=== PATIENT | male | born 1950 | race Caucasian/White ===

== ENCOUNTER 2020-04-11 10:11 | Outpatient (CLI) | payer MEDICARE, SELFPAY ==
--- NOTE | ~2020-04-11 | US_ITS ---
EXAMINATION: US renal BI DATE: 04/11/2020 11:11 INDICATION: Chronic kidney disease stage III TECHNIQUE: Multiple ultrasound grayscale images of the kidneys were obtained. COMPARISON: None. FINDINGS: The right kidney measures 11.5 x 6.0 x 6.6 cm. The left kidney measures 12.8 x 6.2 x 5.2 cm. The kidn eys demonstrate normal parenchymal echogenicity. There are cysts in the kidneys measuring up to 2.6 c m on the left. There is no hydronephrosis. The bladder is normal. IMPRESSION: 1. Normal kidney sizes. No hydronephrosis. Reviewed, dictated and finalized at location A. 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
== END 2020-04-11 10:12 | disposition home or self-care (01) ==
PROVIDERS: PCP Family Medicine; Visit Provider Internal Medicine Nephrology
DX: N18.31 Chronic kidney disease, stage 3a (principal)
CPT/HCPCS: 76775

== ENCOUNTER → 2020-06-18 01:16 | Outpatient (CLI) | payer MEDICARE, SELFPAY ==
[2020-06-18 18:55] LABS: SARS-CoV-2 RNA PCR Negative
== END ==
PROVIDERS: PCP Family Medicine; Visit Provider Internal Medicine Gastroenterology
DX: Z01.812 Encounter for preprocedural laboratory examination (principal); Z20.822 Contact with and (suspected) exposure to COVID-19
CPT/HCPCS: C9803; U0003; U0005

== ENCOUNTER 2020-06-21 05:36 | Day surgery (SDC) | payer MEDICARE, SELFPAY ==
[2020-06-17 13:30] VITALS: BMI 39.0
[2020-06-21 09:39] LABS: Glucose Point of Care 160 (65-105)
--- NOTE | 2020-06-21 09:48 | ECG_ITS ---
Measurements Intervals [place] Rate: 48 P: 54 TN: 273 QRS: -11 QRSD: 118 T: 133 QT: 549 QTc: 495 Interpretive Statements SINUS RHYTHM WITH SECOND DEGREE AV BLOCK, 2:1 AV BLOCK, TYPE I OR II INCOMPLETE LEFT BUNDLE BRANCH BLOCK BORDERLINE R WAVE PROGRESSION, ANTERIOR LEADS BORDERLINE ST-T WAVE ABNORMALITY- HIGH LATERAL LEADS BASELINE ARTIFACT- I, III, AVL ABNORMAL ECG Electronically Signed On 06-21-2020 13:58:15 CDT by Gustavo Natarajan D.O.
[2020-06-21] MEDS: LACTATED RINGERS 1,000 ML 150 ML IV CONT (10:00)
[2020-06-21] MEDS: GENTAMICIN 80MG/SOD CHL 50 ML 80 MG/50 ML BAG 100 MG IVPB (10:02)
--- NOTE | 2020-06-21 10:03 | WPDANESEPPF ---
Anes - Initial Pre Proc Eval Procedure: Operation Date: 06/21/20 10:30 Proposed Procedures p Screening Colonoscopy - Zachery Sullivan MD Date/Time: 06/21/20 10:03 Surgeon: Zachery Sullivan MD Pre Op Diagnosis: neoplasm screening Patient Data Age: 70 Gender: M Height: 5 ft 9 in Weight: 120 kg Allergies Allergy/AdvReac Type Severity Reaction Status Date / Time No Known Allergies Allergy Verified 06/21/20 09:19 Home Medications Medication Instructions Recorded Confirmed Type aspirin 81 mg chewable tablet 81 mg PO DAILY 04/19/19 06/17/20 History carvedilol 6.25 mg tablet 3.125 mg PO BID tablet 04/19/19 06/21/20 History doxazosin 4 mg tablet 4 mg PO BID tablet 04/19/19 06/17/20 History furosemide 40 mg tablet 40 mg PO BID tablet 04/19/19 06/17/20 History hydralazine 50 mg tablet 50 mg PO TID 04/19/19 06/17/20 History insulin degludec 200 unit/mL (3 45 unit SUB-Q DAILY ml 04/19/19 06/17/20 History mL) subcutaneous pen lisinopril 20 mg tablet 20 mg PO DAILY 04/19/19 06/17/20 History rosuvastatin 40 mg tablet 40 mg PO DAILY 04/19/19 06/17/20 History amlodipine 10 mg tablet 10 mg PO DAILY 10/23/19 06/17/20 History insulin lispro 200 unit/mL (3 mL) unit SUB-Q TID ml 10/23/19 04/23/20 History subcutaneous pen semaglutide 1 mg/dose (2 mg/1.5 1 mg SUBCUT WEEKLY 04/23/20 06/17/20 History mL) subcutaneous pen injector sildenafil 100 mg tablet 100 mg PO DAILY PRN #10 tablet 04/23/20 04/23/20 Rx Laboratory Tests 06/21/20 09:37 POC Capillary Glucose 160 mg/dl H mg/dl (65-105) Patient hx anesthesia problems: none Family hx anesthesia problems: none PMFSH Past Medical History Medical History CAD in [place] artery CKD (chronic kidney disease) stage 3, GFR 30-59 ml/min Depression Diastolic dysfunction Dyslipidemia Erectile dysfunction Essential (primary) hypertension IDDM (insulin dependent diabetes mellitus) Nonrheumatic aortic (valve) stenosis 2017 JENNIFER (obstructive sleep apnea) Unspecified osteoarthritis, unspecified site Surgical History Surgical History History of bilateral knee replacement b/l partial - 2010 History of coronary artery bypass graft 02/2018 Hx of aortic valve repair 02/2018 [place] teeth extracted Family History Family History Mother Hypertension Family history of atrial fibrillation Father Family history of cardiovascular disease Social History Social History Smoking status: Never smoker Second hand tobacco smoke exposure: No Alcohol intake: never Substance use: never Substance use type: does not use Living arrangements: alone Gender identity (if verbalized by the patient): Male Spiritual care concerns: No Anes - Eval Final PreProcedure Day of Procedure 06/21/20 10:03 Patient weight: morbidly obese Heart: irregular rhythm (EKG done for bradycardia; notes reviewed; will give Robinul prior to procedure) Lungs: clear to auscultation Airway: Mallampati scale class III Neurological: alert and oriented Last oral intake: >/= 8 hours ASA classification: IV Emergent: no Anesthetic plan: proceed Anesthesia type and monitoring: general GIVS and standard monitoring Informed Consent: The patient's anesthetic plan and its attendant risks and benefits were discussed with the patient/family/POA. Questions were solicited and answers provided to the satisfaction of the patient/family/POA.
[2020-06-21 10:05] VITALS: BP 192/75; PULSE 40; RESP 18; TEMP 36.3; O2SAT 100; BMI 40.4
--- NOTE | 2020-06-21 10:15 | PM.HPGS ---
History of Present Illness History of Present Illness Consent: Risks, benefits, and alternatives have been discussed and questions answered. Patient agrees to proceed with procedure. Chief complaint: neoplasm screening Narrative: Kole Love is a 70 year old male here for screening colonoscopy, last one at 56 yo Review of Systems Constitutional: Constitutional: Denies headache(s) and Denies weakness Eyes: Eyes: Denies blurry vision ENT: Reports Normal hearing present, Denies headache(s) and Denies neck pain Cardiovascular: Cardiovascular: Denies chest pain and Denies dyspnea Respiratory: Respiratory: Denies dyspnea Gastrointestinal: Gastrointestinal: Reports no additional gastrointestinal complaints Genitourinary: Genitourinary: Denies dysuria Musculoskeletal: Musculoskeletal: Denies neck pain Integumentary/Breasts: Skin/Breast: Denies dry skin Neurologic: Reports Normal hearing present, Denies headache(s) and Denies weakness Psychiatric: Psychiatric: Denies anxiety Endocrine: Endocrine: Denies change in body appearance Hematologic/Lymphatic: Hematologic/Lymphatic: Denies easy bleeding Allergic/Immunologic: Allergic/Immunologic: Denies urticaria PMFSH Past Medical History Medical History (Updated 06/21/20 @ 10:16 by Zachery Sullivan MD) CAD in [place] artery CKD (chronic kidney disease) stage 3, GFR 30-59 ml/min Colon cancer screening Depression Diastolic dysfunction Dyslipidemia Erectile dysfunction Essential (primary) hypertension IDDM (insulin dependent diabetes mellitus) Nonrheumatic aortic (valve) stenosis 2017 JENNIFER (obstructive sleep apnea) Unspecified osteoarthritis, unspecified site Surgical History Surgical History History of bilateral knee replacement b/l partial - 2009 History of coronary artery bypass graft 02/2018 Hx of aortic valve repair 02/2018 [place] teeth extracted Family History Family History Mother Hypertension Family history of atrial fibrillation Father Family history of cardiovascular disease Social History Social History Smoking status: Never smoker Second hand tobacco smoke exposure: No Alcohol intake: never Substance use: never Substance use type: does not use Living arrangements: alone Gender identity (if verbalized by the patient): Male Spiritual care concerns: No Meds Home Medications and Allergies Home Medications Medication Instructions Recorded Confirmed Type aspirin 81 mg chewable tablet 81 mg PO DAILY 04/19/19 06/21/20 History carvedilol 6.25 mg tablet 3.125 mg PO BID tablet 04/19/19 06/21/20 History doxazosin 4 mg tablet 4 mg PO BID tablet 04/19/19 06/21/20 History furosemide 40 mg tablet 40 mg PO BID tablet 04/19/19 06/21/20 History hydralazine 50 mg tablet 50 mg PO TID 04/19/19 06/21/20 History insulin degludec 200 unit/mL (3 45 unit SUB-Q DAILY ml 04/19/19 06/21/20 History mL) subcutaneous pen lisinopril 20 mg tablet 20 mg PO DAILY 04/19/19 06/21/20 History rosuvastatin 40 mg tablet 40 mg PO DAILY 04/19/19 06/21/20 History amlodipine 10 mg tablet 10 mg PO DAILY 10/23/19 06/21/20 History insulin lispro 200 unit/mL (3 mL) 1 unit SUB-Q TID ml 10/23/19 06/21/20 History subcutaneous pen semaglutide 1 mg/dose (2 mg/1.5 1 mg SUBCUT WEEKLY 04/23/20 06/21/20 History mL) subcutaneous pen injector sildenafil 100 mg tablet 100 mg PO DAILY PRN #10 tablet 04/23/20 06/21/20 Rx Allergies Allergy/AdvReac Type Severity Reaction Status Date / Time No Known Allergies Allergy Verified 06/21/20 09:19 Vital Signs Vital Signs - 24 hr 06/21/20 10:05 Temperature 97.3 F L Pulse Rate 40 L Respiratory Rate 18 Blood Pressure 192/75 H Pulse Oximetry 100 Exam Const: General: comfortable and no acute distress HENMT: General nose e
[2020-06-21] MEDS: AMPICILLIN 2 GM/NS 100 ML 2 GM/100 ML BAG IVPB (10:23)
[2020-06-21 10:42] VITALS: BP 127/66; PULSE 74; RESP 20; O2SAT 93
[2020-06-21 10:52] VITALS: BP 142/73; PULSE 74; RESP 18; O2SAT 92
[2020-06-21 11:02] VITALS: BP 153/82; PULSE 76; RESP 23; O2SAT 93
[2020-06-21 11:12] LABS: Glucose Point of Care 157 (65-105)
== END 2020-06-21 11:28 | disposition home or self-care (01) ==
PROVIDERS: PCP Family Medicine; Visit Provider Internal Medicine Gastroenterology
PROC: 0DJD8ZZ Inspection of Lower Intestinal Tract, Via Natural or Artificial Opening Endoscopic (ICD-10-PCS; CPT 45378; principal; 2020-06-21 10:30)
DX: Z12.11 Encounter for screening for malignant neoplasm of colon (principal); D36.9 Benign neoplasm, unspecified site; K57.30 Diverticulosis of large intestine without perforation or abscess without bleeding; I25.10 Atherosclerotic heart disease of native coronary artery without angina pectoris; I35.0 Nonrheumatic aortic (valve) stenosis; I12.9 Hypertensive chronic kidney disease with stage 1 through stage 4 chronic kidney disease, or unspecified chronic kidney disease; N18.30 Chronic kidney disease, stage 3 unspecified; E11.22 Type 2 diabetes mellitus with diabetic chronic kidney disease; E78.5 Hyperlipidemia, unspecified; G47.33 Obstructive sleep apnea (adult) (pediatric); M19.90 Unspecified osteoarthritis, unspecified site; F32.9 Major depressive disorder, single episode, unspecified; Z96.653 Presence of artificial knee joint, bilateral; Z95.1 Presence of aortocoronary bypass graft
CPT/HCPCS: 45385; 82948; 88305; 93005; C9803; J0290; J1580; J2001; J2704; J7120; U0003; U0005

== ENCOUNTER 2022-12-28 14:35 | Outpatient (CLI) | payer MEDICARE, SELFPAY ==
--- NOTE | ~2022-12-28 | US_ITS ---
US renal BI 12/28/2022 16:05 Procedure: Realtime transabdominal ultrasound of the kidneys and bladder. Indication: Chronic kidney disease Comparison: Ultrasound dated 04/11/2020 Findings: Renal echotexture is normal bilaterally without hydronephrosis, contour deforming mass or r enal calculus. There bilateral renal cysts, measuring up to 2.7 cm on the right and 2.8 cm on the lef t. The right kidney measures 11.5 cm and left kidney measures 12.8 cm. Bladder within normal limits. Impression: 1: Bilateral renal cysts. Reviewed, dictated and finalized at location B. R POWERHOUSE Impression: 1: Bilateral renal cysts.
== END 2022-12-28 14:36 | disposition home or self-care (01) ==
PROVIDERS: PCP Family Medicine; Visit Provider Internal Medicine Nephrology
DX: N18.31 Chronic kidney disease, stage 3a (principal); N28.1 Cyst of kidney, acquired
CPT/HCPCS: 76775

== ENCOUNTER 2023-03-31 14:57 | Outpatient (CLI) | payer MEDICARE, SELFPAY ==
--- NOTE | ~2023-03-31 | CT_ITS ---
EXAMINATION: CTA abdomen pelvis DATE: 03/31/2023 15:28 INDICATION: Hypertension TECHNIQUE: Computed tomographic angiography (CTA) of the abdomen and pelvis was performed with 100 mL Omnipaque-350 intravenous contrast. Maximum intensity projection 3D-reconstructions of the aorta and other arteries were constructed by the technologist on a separate workstation. The dose-length produ ct (DLP) was 1586.04 mGy-cm. Automated exposure control and iterative reconstruction technique were e mployed. COMPARISON: None. FINDINGS: Cardiomegaly is noted. There are small pleural effusions, right greater than left. Subtle a irspace opacities of the visualized lung bases likely reflect mild pulmonary edema. Changes of aortic valve replacement are noted. The liver, spleen, pancreas, gallbladder, and adrenal glands are normal . Cysts of the kidneys measure up to 4.5 cm on the right. There is marked enlargement of the prostate . No pathologically enlarged abdominal or pelvic lymph nodes are identified. No free intraperitoneal gas or evidence of bowel obstruction. There is severe lumbar spondylosis. The appendix is normal. No aneurysm or dissection of the aorta. The celiac axis, superior mesenteric artery, and inferior mes enteric artery are normal at their origins. There are single renal arteries without evidence of hemod ynamically significant stenosis. There are areas of calcified atherosclerosis of the iliac vessels wi thout hemodynamically significant stenosis. IMPRESSION: 1. No evidence of renal artery stenosis. Unremarkable CTA. Reviewed, dictated and finalized at location L. 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
[2023-03-31 15:20] LABS: Estimated Glomerular Filt Rate 30
== END 2023-03-31 14:58 | disposition home or self-care (01) ==
PROVIDERS: PCP Family Medicine; Visit Provider Internal Medicine Nephrology
DX: E78.5 Hyperlipidemia, unspecified (principal); I12.9 Hypertensive chronic kidney disease with stage 1 through stage 4 chronic kidney disease, or unspecified chronic kidney disease; N18.31 Chronic kidney disease, stage 3a
CPT/HCPCS: 74174; Q9967

== ENCOUNTER 2024-12-19 17:29 | Emergency (ER) | payer MEDICARE, SELFPAY ==
[2024-12-19] VITALS (7 sets, daily range): BP systolic 170–219; BP diastolic 66–115; PULSE 60–91; RESP 16–21; TEMP 36.4; O2SAT 93–99
--- OUTSIDE RECORDS SUMMARY | 2024-12-19 06:26 | XMS_ITS | Encounter Summary ---
Author Organization [facility] Address [address] [place] [address] Care Team Providers Care Radiator Mechanic Name Role Phone Josefa Almaraz MD Primary Care Provider Reason for Referral * (Routine) - Authorized Specialty Diagnoses / Procedures Referred By Steven franco Referred To Contact Procedures Follow up with provider Toyin Coombs MD [address] [facility] [place] [address] Phone: tel: [place]: [place] [address] [place] [address] [place] [address] Phone: tel: fax: Referral ID Status Reason Start Date Expiration Date V isits Requested Visits Authorized [id number] Authorized 12/19/2024 12/19/2025 1 1 STERED PHARMACY TECHNICIAN Reason for Visit * Auth/Cert (Routine) Specialty Diagnoses / Procedures Referred By Steven franco Referred To Contact Diagnoses Diplopia Exotropia, alternating, with A pattern Diplopia Exotropia, alternating, with A pattern Procedures [place] STRABISMUS SURG,ONE HORIZ MUSCLE [place] STRABISMUS SURG,ONE VERT MUSCLE CORRECTION STRABISMUS (RECESSION/RESECTION EYE MUSCLE) Referral ID Status Reason Start Date Expiration Date Visits Re quested Visits Authorized [id number] 1 1 Encounter Details Date Type Department Care Team (Latest Contact Info) Description 12/19/2024 6:26 AM REGISTERED PHARMACY TECHNICIAN - 12/19/2024 10:49 AM REGISTERED PHARMACY TECHNICIAN Hospital Encounter [facility] [address] [place] [id number] Toyin Coombs MD [address] [facility] [address] [place] [id number] Surgery General Discharge Disposition: Home or Self Care Social History Tobacco Use Types Packs/Day Years Used Date Smoking Tobacco: Never Smokeless Tobacco: Never Tobacco Cessation:Counseling Given: Not Answered Alcohol Use Standard Drinks/Week Comments Not Currently 0 (1 standard drink = 0.6 oz pur e alcohol) Sex and Gender Information Value Date Recorded Sex Assigned at Not on file Legal Sex Male 11:46 AM CDT Gender Identity Not on file Sexual Orientation Not on file documented as of this encounter Last Filed Vital Signs Vital Sign Reading Time Taken Comments Blood Pressure 156/82 12/19/2024 10:00 AM REGISTERED PHARMACY TECHNICIAN Pulse 75 12/19/2024 10:00 AM REGISTERED PHARMACY TECHNICIAN Temperature 36.2 C (97.2 F) 12/19/2024 6:49 AM REGISTERED PHARMACY TECHNICIAN Respiratory Rate 15 12/19/2024 10:0 0 AM REGISTERED PHARMACY TECHNICIAN Oxygen Saturation 93% 12/19/2024 10: 00 AM REGISTERED PHARMACY TECHNICIAN Inhaled Oxygen Concentration - - Weight 121.7 kg (268 lb 6.4 oz) 12/19/2024 6:38 AM REGISTERED PHARMACY TECHNICIAN Height 175.3 cm (5' 9) 12/19/2024 6:38 AM REGISTERED PHARMACY TECHNICIAN Body Mass Index 39.64 12/19/2024 6:38 AM REGISTERED PHARMACY TECHNICIAN documented in this encounter Functional Status documented as of this encounter Discharge Instructions * Discharge Instructions* Wagner Davidson MD - 12/18/2024 8:24 PM REGISTERED PHARMACY TECHNICIAN Images from the original note were not included. POST-OPERATIVE INSTRUCTIONS EYE MUSCLE SURGERY FOLLOW-UP APPOINTMENT: As scheduled 12/25/24 at 1:30PM TODAY: - Put 1 drop in each operative eye(s) as specified below: - Prednisolone Acetate (steroid) 4 times daily starting this afternoon - Tobramycin (Antibiotic) 4 times daily starting this afternoon - Preservative free artificial tears, small vials every hour - Tylenol with Codeine every 4-6 hours as needed for pain - Resume all usual medications - Use ice packs over the eye for 10 minutes every hour as needed for 1-2 days to help with pain andswelling WHAT TO EXPECT: Your eyes may progressively bruise for the first few days, the white part of the eye may become red. Vision will be blurred for the first few days, especially in relation to drop use. These eyes may be scratchy and irritated. This is helped considerably by the use artificial tear drops. WHAT TO AVOID: Avoid strenuous activity, bending over, or heavy lifting (greater than 8 pounds) for two weeks. Avoid swimming for 2 weeks. No restrictions on showering or bathing. WHEN TO CALL: Today and tomorrow should be the worst that it looks and feels, and should improve progressively. If you experience worsening in redness, pain, swelling, or blurred vision call immediately. If you have any questions, please call the ophthalmology office at #[phone]. To urgently speakwith an Ophthalmology resident after hours call #[phone] and ask the wrapper operator to page the Ophthalmology resident. STERED PHARMACY TECHNICIAN STERED PHARMACY TECHNICIAN documented in this encounter Medications at Time of Discharge acetaminophen-cod eine (Tylenol #3) 300-30 MG tablet Take 1 (one) tablet by mouth every 6 hours as needed for Pain 10 tablet 5 amLODIPine (Norvasc) 10 MG tablet Take 1 (one) tablet by mouth once daily 5 carvedilol (Coreg) 3.125 MG tablet Take 1 (one) tablet by mouth 2 times daily with morning and evening meal Cholecalciferol 1.25 MG (86192 UT) Take 1 capsule by mouth every 7 days (once a week) dapagliflozin propanediol (Farxiga) 5 MG tablet 1 (one) tablet doxazosin (Cardura) 4 MG tablet Take 1 (one) tablet by mouth 2 times daily 5 dulaglutide (Trulicity) 4.5 MG/0.5ML injection Inject 4.5 (four and one-half) mg subcutaneously every 7 days (once a week) finerenone (Kerendia) 10 MG tablet Take 1 (one) tablet by mouth every morning 4 furosemide (Lasix) 40 MG tablet Take 1 (one) tablet by mouth 2 times daily 4 Glucagon (Gvoke HypoPen 2-Pack) 1 MG/0.2ML SOAJ Inject 1 mg as needed by subcutaneous route as needed for 1 day. hydrALAZINE (Apresoline) 25 MG tablet Take 1 (one) tablet by mouth 3 times daily 4 insulin lispro (HumaLOG;ADMelog) 100 UNIT/ML pen INJECT 20 UNITS SUBCUTANEOUSLY THREE TIMES DAILY WITH MEALS lisinopril (Prinivil; Zestril) 20 MG tablet Take 1 (one) tablet by mouth 2 times daily 5 prednisoLONE acetate (Pred Forte) 1 % ophthalmic suspension Instill 1 (one) drop into both eyes 4 times daily 5 rosuvastatin (Crestor) 40 MG tablet Take 1 (one) tablet by mouth at bedtime 5 Semaglutide (1 MG/DOSE) 4 MG/3ML Subcutaneous Solution Pen-injector (Ozempic) Inject 1 (one) mg subcutaneously every 7 days (once a week) Injection day is tobramycin (Tobrex) 0.3 % ophthalmic solution Instill 1 (one) drop into both eyes every 4 hours 5 Tresiba FlexTouch 200 UNIT/ML pen Inject 45 Units subcutaneously at bedtime vitamin D, ergocalciferol, (Drisdol) 1.25 MG (10775 UT) capsule Take 1 (one) capsule by mouth every 7 days (once a week) 5 documented as of this encounter H&P Notes * Wagner Davidson MD - 12/18/2024 8:21 PM CST Date: 12/19/2024 Patient ID: Name: Kole Love Age: [id number] year old : 1950 Present Illness: Kole Love is a 74 year old male who presents for Bilateral rectus recession or left lateral recession and left medial resection. ROS: Patient has persistent exotropia, diplopia. Medications: Medications[1] Allergies: Patient has no known allergies. Past surgical history: Past Surgical History[2] Past medical history: Past Medical History[3] Past family history: Family History[4] Social history: Social History[5] General Exam: BP (!) 206/103 (BP Location: Left arm, Patient Position: Lying) Comment (BP Location): left lower arm Pulse 53 Temp 97.2 ??F (36.2 ??C) (Skin) Resp 13 Ht 1.753 m (5' 9) Wt 121.7 kg (268 lb6.4 oz) SpO2 96% General appearance: alert, cooperative, no distress, appears stated age Head: Normocephalic, without obvious abnormality, atraumatic Eyes: Intermittent exotropia Lungs: breathing comfortably on room air Heart: heart block (regular rate, irregular rhythm) Abdomen: soft, non-tender Neurologic: Grossly normal Assessment: Intermittent exotropia Plan: Risks, benefits and alternatives of Bilateral rectus recession or left lateral recession and left medial resection were discussed including but not limited to bleeding, infection, scarring, recurrence, and need for further surgery. Patient understands and agrees to proceed with surgery. This is to be performed today as planned. Wagner Davidson MD 12/19/2024 6:58 AM [1] Current Facility-Administered Medications Medication Dose Route Frequency Provider Last Rate Last Admin 0.9% NaCl infusion Intravenous Continuous Wagner Davidson MD 0.9% NaCl injection 3 mL 3 mL Intracatheter q8h Wagner Davidson MD And 0.9% NaCl injection 1-10 mL 1-10 mL Intracatheter PRN Wagner Davidson MD [2] Past Surgical History: Procedure Laterality Date Aortic Valve Replacement PIG VALVE [3] Past Medical History: Diagnosis Date Anesthesia no complications Aortic stenosis 2018 S/P AVR Atherosclerosis of coronary artery Chronic kidney disease STAGE IIIa Congestive heart failure (HCC) Essential hypertension History of diabetes mellitus Obesity Pure hypercholesterolemia Sleep apnea CPAP compliant [4] No family history on file. [5] Social History Tobacco Use Smoking status: Never Smokeless tobacco: Never Vaping Use Vaping status: Never Used Substance Use Topics Alcohol use: Not Currently Drug use: Never Cosigned by Toyin Coombs MD at 12/19/2024 7:17 AM REGISTERED PHARMACY TECHNICIAN STERED PHARMACY TECHNICIAN STERED PHARMACY TECHNICIAN documented in this encounter Plan of Treatment Upcoming Encounters Date Type Department Care Team (Late st Contact Info) Description 12/25/2024 1:30 PM REGISTERED PHARMACY TECHNICIAN Office Visit [facility] - Ophthalmology [address] [place] [phone] Toyin Coombs MD [facility] [place] [address] Scheduled Orders Name Type Priority Associated Diagnoses Orde r Schedule EKG 12-Lead ECG Routine Atrial fibrillation, unspecified type (HCC) ONCE for 1 Occurrences starting 12/19/2024 until 12/19/2024 Scheduled Procedures Name Priority Associated Diagnoses Date/Ti me CORRECTION STRABISMUS (RECESSION/RESECTION EYE MUSCLE) Diplopia Exotropia, alternating, with A pattern 12/19/2024 7:30 AM REGISTERED PHARMACY TECHNICIAN documented as of this encounter Procedures Procedure Name Priority Date/Time Associated Diagnosis Comments GLUCOSE - POINT OF CARE Routine 12/19/2024 9:46 AM REGISTERED PHARMACY TECHNICIAN GLUCOSE - POINT OF CARE Routine 12/19/2024 7:03 AM REGISTERED PHARMACY TECHNICIAN documented in this encounter Results * (ABNORMAL) GLUCOSE - POINT OF CARE (12/19/2024 9:46 AM REGISTERED PHARMACY TECHNICIAN) Glucose WB/POC 127(H) 70 - 99 mg/dL 12/19/2024 9:47 AM REGISTERED PHARMACY TECHNICIAN [facility] Specimen Type Arterial/C apillary 12/19/2024 9:47 AM REGISTERED PHARMACY TECHNICIAN [facility] Blood BLOOD SPECIMEN / Unknown 12/19/2024 9:46 AM REGISTERED PHARMACY TECHNICIAN 12/19/2024 9:47 AM REGISTERED PHARMACY TECHNICIAN Toyin Coombs MD LAB - POINT OF CARE ORDERABLES Final Result [facility] [address] [place] [address], [facility] [phone] * (ABNORMAL) GLUCOSE - POINT OF CARE (12/19/2024 7:03 AM REGISTERED PHARMACY TECHNICIAN) Glucose WB/POC 111(H) 70 - 99 mg/dL 12/19/2024 7:05 AM REGISTERED PHARMACY TECHNICIAN [facility] Specimen Type Venous 12/19/2024 7:05 AM [facility] Blood BLOOD SPECIMEN / Unknown 12/19/2024 7:03 AM REGISTERED PHARMACY TECHNICIAN 12/19/2024 7:05 AM REGISTERED PHARMACY TECHNICIAN Toyin Coombs MD LAB - POINT OF CARE ORDERABLES Final Result [facility] [address] [place] [address], [facility] [phone] documented in this encounter Visit Diagnoses Diagnosis Atrial fibrillation, unspecified type (HCC)- Primary documented in this encounter Administered Medications Inactive Administered Medications - up to 3 most recent administrations Medication Order MAR Action Action Date Dose Rate Site 0.9% NaCl infusion at 75 mL/hr, Intravenous, CONTINUOUS, Starting on Wed12/19/24 at 0645, Until Wed12/19/24 at 1150, Pre-op Restarted 12/19/2024 9:25 AM REGISTERED PHARMACY TECHNICIAN Rate Change 12/19/2024 7:36 AM REGISTERED PHARMACY TECHNICIAN 50 mL/hr $ New Bag/Syringe 12/19/2024 7:20 AM REGISTERED PHARMACY TECHNICIAN 75 mL/ hr 0.9% NaCl injection 1-10 mL 1-10 mL, Intracatheter, PRN, other, peripheral line flush, Starting on Wed12/19/24 at 0630, Until Wed12/19/24 at 1150, Flush peripheral IV catheter with 1-10 mL of normal saline before and after medications and prn to clear blood from the line or to verify patency., Pre-op 0.9% NaCl injection 3 mL 3 mL, Intracatheter, EVERY 8 HOURS, First dose on Wed12/19/24 at 0645, Until Discontinued, Flush peripheral IV catheter with 3 mL of normal saline every 8 hours., Pre-op acetaminophen (Tylenol) tablet 1,000 mg 1,000 mg, Oral, ONCE PRN, pain, 1 dose, Starting on Wed12/19/24 at 0929, Until Wed12/19/24 at 1150, For pain, if not given in OR if not given in last 6 hours. Patient preference for lesser PRN pain meds may be honored when the patient requests a less strong medication, a lower dose, or a less intrusive route of administration when the lesser drug, dose and route have been ordered for the patient. This patient request must be documented in the MAR. If both oral and IV options are ordered for the same pain severity, give oral first unless patient cannot tolerate oral intake., PACU albuterol-ipratropium (Duo-Neb) nebulizer solution 3 mL 3 mL, Inhalation, POST-OP MULTIPLE, Starting on Wed12/19/24 at 0929, Until Wed12/19/24 at 1150, For wheezing. Notify anesthesia immediately., PACU droPERidol (Inapsine) injection 0.625 mg 0.625 mg, Intravenous, ONCE PRN, nausea/vomiting, 1 dose, Starting on Wed12/19/24 at 0929, Until Wed12/19/24 at 1150, Third choice, use if first and second choice was ineffective., PACU fentaNYL (PF) (Sublimaze) injection 25 mcg 25 mcg, Intravenous, EVERY 10 MIN PRN, Mild Pain, 4 doses, Starting on Wed12/19/24 at 0929, Until Wed12/19/24 at 1150, Maximum total of 4 doses. If patient reaches max total dose, please consult anesthesiologist prior to further administration of pain meds. Hold pain meds if there are signs of hypoventilation. Patient preference for lesser PRN pain meds may be honored when the patient requests a less strong medication, a lower dose, or a less intrusive route of administration when the lesser drug, dose and route have been ordered for the patient. This patient request must be documented in the MAR. If both oral and IV options are ordered for the same pain severity, give oral first unless patient cannot tolerate oral intake., PACU hydrALAZINE (Apresoline) injection 10 mg 10 mg, Intravenous, ONCE, 1 dose, On Wed12/19/24 at 0730 $ Given 12/19/2024 7:20 AM REGISTERED PHARMACY TECHNICIAN 10 mg hydrALAZINE (Apresoline) injection 5 mg 5 mg, Intravenous, POST-OP MULTIPLE, 4 doses, Starting on Wed12/19/24 at 0929, Until Wed12/19/24 at 1150, IV given slowly over 1 minute, up to 20 mg. Repeat 5 mg IV dose every 10-15 minutes for sustained hypertension SBP greater than 180, DBP greater than 100., PACU HYDROmorphone (Dilaudid) injection 0.2 mg 0.2 mg, Intravenous, EVERY 15 MIN PRN, Moderate Pain, 5 doses, Starting on Wed12/19/24 at 0929, Until Wed12/19/24 at 1150, Maximum total of 5 doses If patient reaches max total dose, please consult anesthesiologist prior to further administration of pain meds. Hold pain meds if there are signs of hypoventilation. Patient preference for lesser PRN pain meds may be honored when the patient requests a less strong medication, a lower dose, or a less intrusive route of administration when the lesser drug, dose and route have been ordered for the patient. This patient request must be documented in the MAR. If both oral and IV options are ordered for the same pain severity, give oral first unless patient cannot tolerate oral intake., PACU HYDROmorphone (Dilaudid) injection 0.5 mg 0.5 mg, Intravenous, EVERY 10 MIN PRN, Severe Pain, 4 doses, Starting on Wed12/19/24 at 0929, Until Wed12/19/24 at 1150, Maximum total of 4 doses If patient reaches max total dose, please consult anesthesiologist prior to further administration of pain meds. Hold pain meds if there are signs of hypoventilation. Patient preference for lesser PRN pain meds may be honored when the patient requests a less strong medication, a lower dose, or a less intrusive route of administration when the lesser drug, dose and route have been ordered for the patient. This patient request must be documented in the MAR. If both oral and IV options are ordered for the same pain severity, give oral first unless patient cannot tolerate oral intake., PACU lactated ringers infusion at 125 mL/hr, Intravenous, CONTINUOUS, Starting on Wed12/19/24 at 0930, Until Wed12/19/24 at 1150, PACU naloxone (Narcan) injection 0.04 mg 0.04 mg, Intravenous, POST-OP MULTIPLE, Starting on Wed12/19/24 at 0929, Until Wed12/19/24 at 1150, If respirations are less than 8 per minute and O2 sat is less than 90%, bag/mask patient and notify anesthesia immediately. If directed to administer naloxone, dilute 0.4mg in 9mL normal saline for dilution of 0.04mg/mL. Administer 1mL over 30 seconds while observing the patient response and titrating to effect. If no response, continue IV naloxone at the same rate up to a total of 0.8 mg of diluted naloxone., PACU ondansetron (Zofran) injection 4 mg 4 mg, Intravenous, ONCE PRN, nausea/vomiting, 1 dose, Starting on Wed12/19/24 at 0929, Until Wed12/19/24 at 1150, First choice, PACU oxyCODONE (immediate release) (Roxicodone) tablet 5 mg 5 mg, Oral, ONCE PRN, Mild Pain, 1 dose, Starting on Wed12/19/24 at 0929, Until Wed12/19/24 at 1150, Use if no IV access or as directed by Anesthesia provider. Patient preference for lesser PRN pain meds may be honored when the patient requests a less strong medication, a lower dose, or a less intrusive route of administration when the lesser drug, dose and route have been ordered for the patient. This patient request must be documented in the MAR. If both oral and IV options are ordered for the same pain severity, give oral first unless patient cannot tolerate oral intake., PACU prochlorperazine (Compazine) injection 10 mg 10 mg, Intravenous, ONCE PRN, nausea/vomiting, 1 dose, Starting on Wed12/19/24 at 0929, Until Wed12/19/24 at 1150, Second choice, use if first choice was ineffective., PACU throat lozenge 1 lozenge 1 lozenge, Oral, EVERY 1 HOUR PRN, Sore Throat, Starting on Wed12/19/24 at 09, Until Wed12/19/24 at 1150, PACU documented in this encounter Active and Recently Administered Medications Times are shown in REGISTERED PHARMACY TECHNICIAN. Scheduled Medication Order 12/17/2024 12/18/2024 12/19/2024 0.9% NaCl injection 3 mL(Linked Group 1) 3 mL, Intracatheter, EVERY 8 HOURS, First dose on Wed12/19/24 at 0645, Until Discontinued, Flush peripheral IV catheter with 3 mL of normal saline every 8 hours., Pre-op 0645 (Due) albuterol-ipratropium (Duo-Neb) nebulizer solution 3 mL 3 mL, Inhalation, POST-OP MULTIPLE, Starting on Wed12/19/24 at 0929, Until Wed12/19/24 at 1150, For wheezing. Notify anesthesia immediately., PACU hydrALAZINE (Apresoline) injection 10 mg (COMPLETED) 10 mg, Intravenous, ONCE, 1 dose, On Wed12/19/24 at 0730 0720 ($ Given - Prov ider: Jes White RN) hydrALAZINE (Apresoline) injection 5 mg 5 mg, Intravenous, POST-OP MULTIPLE, 4 doses, Starting on Wed12/19/24 at 0929, Until Wed12/19/24 at 1150, IV given slowly over 1 minute, up to 20 mg. Repeat 5 mg IV dose every 10-15 minutes for sustained hypertension SBP greater than 180, DBP greater than 100., PACU naloxone (Narcan) injection 0.04 mg 0.04 mg, Intravenous, POST-OP MULTIPLE, Starting on Wed12/19/24 at 0929, Until Wed12/19/24 at 1150, If respirations are less than 8 per minute and O2 sat is less than 90%, bag/mask patient and notify anesthesia immediately. If directed to administer naloxone, dilute 0.4mg in 9mL normal saline for dilution of 0.04mg/mL. Administer 1mL over 30 seconds while observing the patient response and titrating to effect. If no response, continue IV naloxone at the same rate up to a total of 0.8 mg of diluted naloxone., PACU Continuous Medication Order 12/17/2024 12/18/2024 12/19/2024 0.9% NaCl infusion at 75 mL/hr, Intravenous, CONTINUOUS, Starting on Wed12/19/24 at 0645, Until Wed12/19/24 at 1150, Pre-op 0720 ($ New Bag/Syri nge - Provider: Jes White RN)0736 (Rate Change - Provider: Maxx Pichardo APRN-BUSINESS ANALYST INTERN)0924 (Paused - Provider: ROBERT Farias - Comment: Switch to gravity)924 (Restarted - Provider: ROBERT Farias)926 (Anesthesia Volume Adjustment - Provider: ROBERT Farias) lactated ringers infusion at 125 mL/hr, Intravenous, CONTINUOUS, Starting on Wed12/19/24 at 0930, Until Wed12/19/24 at 1150, PACU 0930 (Due) PRN Medication Order 12/17/2024 12/18/2024 12/19/2024 0.9% NaCl injection 1-10 mL(Linked Group 1) 1-10 mL, Intracatheter, PRN, other, peripheral line flush, Starting on Wed12/19/24 at 0630, Until Wed12/19/24 at 1150, Flush peripheral IV catheter with 1-10 mL of normal saline before and after medications and prn to clear blood from the line or to verify patency., Pre-op acetaminophen (Tylenol) tablet 1,000 mg 1,000 mg, Oral, ONCE PRN, pain, 1 dose, Starting on Wed12/19/24 at 0929, Until Wed12/19/24 at 1150, For pain, if not given in OR if not given in last 6 hours. Patient preference for lesser PRN pain meds may be honored when the patient requests a less strong medication, a lower dose, or a less intrusive route of administration when the lesser drug, dose and route have been ordered for the patient. This patient request must be documented in the MAR. If both oral and IV options are ordered for the same pain severity, give oral first unless patient cannot tolerate oral intake., PACU droPERidol (Inapsine) injection 0.625 mg 0.625 mg, Intravenous, ONCE PRN, nausea/vomiting, 1 dose, Starting on Wed12/19/24 at 0929, Until Wed12/19/24 at 1150, Third choice, use if first and second choice was ineffective., PACU fentaNYL (PF) (Sublimaze) injection 25 mcg 25 mcg, Intravenous, EVERY 10 MIN PRN, Mild Pain, 4 doses, Starting on Wed12/19/24 at 0929, Until Wed12/19/24 at 1150, Maximum total of 4 doses. If patient reaches max total dose, please consult anesthesiologist prior to further administration of pain meds. Hold pain meds if there are signs of hypoventilation. Patient preference for lesser PRN pain meds may be honored when the patient requests a less strong medication, a lower dose, or a less intrusive route of administration when the lesser drug, dose and route have been ordered for the patient. This patient request must be documented in the MAR. If both oral and IV options are ordered for the same pain severity, give oral first unless patient cannot tolerate oral intake., PACU HYDROmorphone (Dilaudid) injection 0.2 mg 0.2 mg, Intravenous, EVERY 15 MIN PRN, Moderate Pain, 5 doses, Starting on Wed12/19/24 at 0929, Until Wed12/19/24 at 1150, Maximum total of 5 doses If patient reaches max total dose, please consult anesthesiologist prior to further administration of pain meds. Hold pain meds if there are signs of hypoventilation. Patient preference for lesser PRN pain meds may be honored when the patient requests a less strong medication, a lower dose, or a less intrusive route of administration when the lesser drug, dose and route have been ordered for the patient. This patient request must be documented in the MAR. If both oral and IV options are ordered for the same pain severity, give oral first unless patient cannot tolerate oral intake., PACU HYDROmorphone (Dilaudid) injection 0.5 mg 0.5 mg, Intravenous, EVERY 10 MIN PRN, Severe Pain, 4 doses, Starting on Wed12/19/24 at 0929, Until Wed12/19/24 at 1150, Maximum total of 4 doses If patient reaches max total dose, please consult anesthesiologist prior to further administration of pain meds. Hold pain meds if there are signs of hypoventilation. Patient preference for lesser PRN pain meds may be honored when the patient requests a less strong medication, a lower dose, or a less intrusive route of administration when the lesser drug, dose and route have been ordered for the patient. This patient request must be documented in the MAR. If both oral and IV options are ordered for the same pain severity, give oral first unless patient cannot tolerate oral intake., PACU ondansetron (Zofran) injection 4 mg 4 mg, Intravenous, ONCE PRN, nausea/vomiting, 1 dose, Starting on Wed12/19/24 at 0929, Until Wed12/19/24 at 1150, First choice, PACU oxyCODONE (immediate release) (Roxicodone) tablet 5 mg 5 mg, Oral, ONCE PRN, Mild Pain, 1 dose, Starting on Wed12/19/24 at 0929, Until Wed12/19/24 at 1150, Use if no IV access or as directed by Anesthesia provider. Patient preference for lesser PRN pain meds may be honored when the patient requests a less strong medication, a lower dose, or a less intrusive route of administration when the lesser drug, dose and route have been ordered for the patient. This patient request must be documented in the MAR. If both oral and IV options are ordered for the same pain severity, give oral first unless patient cannot tolerate oral intake., PACU phenylephrine (Mydfrin) 2.5% ophthalmic solution (CANCELED) PRN, Starting on Wed12/19/24 at 0800, Until Wed12/19/24 at 0944, Intra-op 0800 ($ Given - Prov ider: Morelia Plummer RN) prednisoLONE acetate (Pred Forte) 1 % ophthalmic suspension (CANCELED) PRN, Starting on Wed12/19/24 at 0930, Until Wed12/19/24 at 0944, Intra-op 0930 ($ Given - Prov ider: Toyin Coombs MD) prochlorperazine (Compazine) injection 10 mg 10 mg, Intravenous, ONCE PRN, nausea/vomiting, 1 dose, Starting on Wed12/19/24 at 0929, Until Wed12/19/24 at 1150, Second choice, use if first choice was ineffective., PACU throat lozenge 1 lozenge 1 lozenge, Oral, EVERY 1 HOUR PRN, Sore Throat, Starting on Wed12/19/24 at 0929, Until Wed12/19/24 at 1150, PACU tobramycin (Tobrex) 0.3 % ophthalmic solution (CANCELED) PRN, Starting on Wed12/19/24 at 0934, Until Wed12/19/24 at 0944, Intra-op 0934 ($ Given - Prov ider: Toyin Coombs MD) tobramycin (Tobrex) ophthalmic ointment (CANCELED) PRN, Starting on Wed12/19/24 at 0934, Until Wed12/19/24 at 0944, Intra-op 0934 ($ Given - Prov ider: Toyin Coombs MD) Linked Groups Order Group 1: SALINE LOCK, INSERT AND MAINTAIN (CANCELED) Routine, CONTINUOUS, Starting on Wed12/19/24 at 0645, Until Specified, Pre-op, New collection And 0.9% NaCl injection 3 mLJump to med 3 mL, Intracatheter, EVERY 8 HOURS, First dose on Wed12/19/24 at 0645, Until Discontinued, Flush peripheral IV catheter with 3 mL of normal saline every 8 hours., Pre-op And 0.9% NaCl injection 1-10 mLJump to med 1-10 mL, Intracatheter, PRN, other, peripheral line flush, Starting on Wed12/19/24 at 0630, Until Wed12/19/24 at 1150, Flush peripheral IV catheter with 1-10 mL of normal saline before and after medications and prn to clear blood from the line or to verify patency., Pre-op documented in this encounter Care Teams 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
--- OUTSIDE RECORDS SUMMARY | 2024-12-19 07:36 | XMS_ITS | Encounter Summary ---
Author Organization [facility] Address [address] [place] [address] Care Team Providers Care High Man Name Role Phone Josefa Almaraz MD Primary Care Provider Reason for Visit * Auth/Cert (Routine) Specialty Diagnoses / Procedures Referred By Steven franco Referred To Contact Diagnoses Diplopia Exotropia, alternating, with A pattern Diplopia Exotropia, alternating, with A pattern Procedures OR STRABISMUS SURG,ONE HORIZ MUSCLE OR STRABISMUS SURG,ONE VERT MUSCLE CORRECTION STRABISMUS (RECESSION/RESECTION EYE MUSCLE) Referral ID Status Reason Start Date Expiration Date Visits Re quested Visits Authorized [id number] 1 1 Encounter Details Date Type Department Care Team (Late st Contact Info) Description 12/19/2024 7:36 AM TEMPLATE MAKER Anesthesia Event [facility] [address] [place] [id number] Jacobo Leon MD [address] [place] [id number] Ignacia Jeffrey APRN-DERIC [address] [facility] [place] [address] Anesthesia Record Procedure Summary Procedure Name Responsible Anesthesiologist Anesthesia Start Time Anesthesia Stop Time left lateral recession and left medial resection (Bilateral: Eye) Jacobo Leon MD 12/19/24 0736 12/19/24 0938 Events Date Time Event Comment 12/19/2024 0725 0736 An Start 0736 Pt In Room 0737 An Start Data 0738 PT Reassessment 0740 Induction 0744 An LMA 0746 Anes Ready 0803 Time Out Anesthesia part icipated in timeout at the time documented in the record by nursing 0804 Proc Start 0927 Proc Stop 09 An Emergence 0936 An LMA Removed 09 ANPTO2 0937 an stop data 0938 Pt out of Room 0938 An Stop 0938 Electnc Sig This record is electronically signed by the providers listed under staff. Meds Name Total lidocaine PF 2% 100 mg fentaNYL 100 mcg/2ml injection 100 mcg propofol 200mg/20mL injection 120 mg dexamethasone 10 mg/ml PF injection 4 mg famotidine 20 mg/2mL injection 20 mg vasopressin (Vasostrict) 40 Units in NaC l IV 0.9 % 40 mL infusion 1 Units glycopyrrolate 0.4 mg/2mL injection 0.3 mg HYDROmorphone (Dilaudid) 2 mg/ml injecti on 0.4 mg 0.9% NaCl infusion 800 mL * Agents Name Insp. N2O Exp. Sevoflurane Exp. N2O O2 Flow - Auxiliary O2 Air Insp. Sevoflurane N2O * Blood No blood administrations on file. Lines, Drains, and Airways Type Details Placement Removal Peripheral IV Date: 12/19/24; Time : 719; Orientation: Anterior, Right; Location: Forearm; Gauge: 20 G 12/19/24 0720 by Jes White RN 12/19/24 1044 by Johanne Parr, YANNA LMA 12/19/24; 0744 (created via procedure documentation); Jacobo Leon MD; 100% O2; Standard IV; mask not attempted; LMA; 5.0; Direct visualization, CO2 Monitor; 12/19/24; 0936 12/19/24 0744 by Maxx Pichardo APRN-CRNA 12/19/24 0936 by Maxx Pichardo APRN-CRNA Procedural Site (Incision) Left; Eye; 12/19/24; 1650 12/19/24 0816 by 12/19/24 1650 by Generic, Auto Release documented in this encounter Social History Tobacco Use Types Packs/Day Years Used Date Smoking Tobacco: Never Smokeless Tobacco: Never Alcohol Use Standard Drinks/Week Comments Not Currently 0 (1 standard drink = 0.6 oz pur e alcohol) Sex and Gender Information Value Date Recorded Sex Assigned at Not on file Legal Sex Male 11:46 AM CDT Gender Identity Not on file Sexual Orientation Not on file documented as of this encounter Functional Status documented as of this encounter Progress Notes * Jacobo Leon MD - 12/19/2024 2:34 PM CST ANESTHESIA POSTOP EVALUATION NOTE Procedure: left lateral recession and left medial resection (Bilateral: Eye) Kole Love is a 74 year old male Patient Vitals for the past 8 hrs: BP Temp Pulse Resp SpO2 Pain Rating Score #1 Pain Scale/Observation 12/19/24 0649 (!) 195/115 36.2 ??C 62 13 96 % -- No/denies pain 12/19/24 0654 (!) 206/103 -- 53 -- -- -- -- 12/19/24 0729 (!) 190/97 -- -- -- -- -- -- 12/19/24 0733 175/95 -- -- -- -- -- -- 12/19/24 0940 153/81 -- 82 31 91 % 0 No/denies pain;N 12/19/24 0945 153/79 -- 79 11 95 % 0 No/denies pain;N 12/19/24 0950 158/66 -- 82 11 96 % 0 No/denies pain;N 12/19/24 0959 -- -- -- -- 93 % -- -- 12/19/24 1000 156/82 -- 75 15 93 % 0 No/denies pain;N Anesthesia Type: general LMA Pre-op Diagnosis Codes: * Diplopia [H53.2] * Exotropia, alternating, with A pattern [H50.16] Mental Status: alert, oriented and awake Neuro Status: other - please comment (No change from baseline mentation) Respiratory Function: natural Cardiac Function: stable Postop Pain: adequate Postop Nausea: none Assessment: patient tolerated procedure well, no apparent anesthetic complications and no evidence of recall Patient Disposition: Release from Anesthesia Care NOTABLE EVENTS: No notable events documented. LATE MAKER * Jacobo Leon MD - 12/19/2024 7:27 AM CST ANESTHESIA PREOPERATIVE EVALUATION NOTE Procedure: Bilateral rectus recession or left lateral recession and left medial resection, BILATERAL (Bilateral: Eye) NPO status: *Other (12/19/2024 6:50 AM) Last Solids/Dairy: 2000 (12/19/2024 6:38 AM) Last Clear Liquids: 0500 (lemon [place] [employer] [place] soda) (12/19/2024 6:38 AM) Vitals: Patient Vitals for the past 6 hrs: BP Temp Pulse Resp SpO2 12/19/24 0654 (!) 206/103 -- 53 -- -- 12/19/24 0649 (!) 195/115 36.2 ??C 62 13 96 % LMP: No 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 OB Status: unknown ANESTHESIA PRE-EVALUATION NOTE History of Present Illness: 74 y/o male PMHx of HTN, HLD, IDDM (on Farxiga - last dose 12/15/24), CKD stage IIIa (on Kerendia), obesity (BMI 39.13; on semaglutide - pt opted to hold x1 week prior to procedure, last dose 12/07/24), JENNIFER (CPAP compliant), CAD/CHF/Wenckebach type 1 second-degree AV block (04/11/24 echo - EF 66%, GIIDD, mild MR, bioprosthetic valve present in aortic position with normal transvalvular gradient; 12/23/17 RHC/C; follows cardiology), and s/p AVR (01/17/18) presents for above procedure. Denies prior complications with anesthesia. The patient is a current non-smoker. Physical Exam: Orientation X3 Airway/Mallampati Score: III Mouth Opening Distance: 3 fingerwidths Neck ROM: full TM Distance: > 3 FB Teeth: normal Heart: normal - S1 S2 Lungs: clear to ausculation bilaterally Review of Systems: History of anesthetic complications: No Sleep Apnea Risk: Yes, CPAP - compliant Malignant Hyperthermia: No GERD: No Poor Exercise Tolerance: No (able to walk up 2 flights of steps w/o SOB) Recent Chest Pain: No Shortness of Breath: No AICD/Pacemaker: No Renal Disease: Yes, other - comments (CKD stage IIIa) Diagnostic Tests: Echo(s) reviewed: Yes (04/11/24 - EF 66%, GIIDD, mild MR, bioprosthetic valve present in aortic position with normal transvalvular gradient). Cardiac Cath(s) reviewed: Yes (12/23/17 - significant single vessel CAD). Other Findings: ECHO (04/11/24): CONCLUSIONS: 1. Normal left ventricular cavity size based on 2D measurements. Normal LV wall thickness. Mild concentric left ventricular hypertrophy. Normal left ventricular systolic function. The Ejection Fraction (Campbell's) is measured at 66%. Left ventricular diastolic parameters are consistent with Grade II diastolic dysfunction (increased mean LA pressure). 2. Normal right ventricular size. Normal right ventricular systolic function. 3. The left atrium is normal in size. Moderately dilated left atrium. 4. Normal mitral valve leaflet structure. Moderate mitral annular calcification. There is mild mitral valve regurgitation. 5. A bioprosthetic valve is present in the aortic position. The aortic prosthesis demonstrates a normal transvalvular gradient for valve type and size. 6. Normal aortic root. The aortic root is normal in size. The aortic root is normal in size when indexed. The ascending aorta is normal in size when indexed. 7. Normal functioning bioprosthetic aortic valve. 9. Bioprosthetic aortic valve in the aortic position. During the echocardiogram the patient's heartrhythm was Wenckebach type 1 second-degree AV block. Therefore, variable RR intervals lead to variable gradients. During shorter RR intervals, peak gradient 24 mm Hg, mean gradient 15 mm Hg. After a pause, peak gradient increases to 40 mm Hg mean gradient 20 mm Hg. 48-HOUR HOLTER (04/23/20): IMPRESSION: 1. Multiple episodes of second-degree AV block, Mobitz type I Wenckebach pattern noted [id number]. At times, 2:1 AV block was also seen. 2. There was evidence for sinus node dysfunction in this monitoring as noted by underlying chronotropic incompetence. Minimum heart rate was 34 bpm with an average heart rate of 49 bpm and a maximum heart of 102 bpm. 3. No other significant atrial or ventricular beats were noted. PFTs (01/17/18): Interpretation: Breathing room air, SpO2 is normal at rest and during exercise sufficient to increase pulse from 64to 104 b/min, SpO2 is stable. On this basis, SpO2 is adequate at rest breathing room air and while walking breathing room air. This level of exercise is associated with no significant change of FEV1 US CAROTIDS BILATERAL (01/17/18): CONCLUSIONS: 1. No evidence of hemodynamically significant disease of the bilateral extracranial carotid system. RHC/LHC (12/23/17): DIAGNOSTIC IMPRESSIONS 1. Moderate elevation of the pulmonary artery pressure, moderate elevation of the transpulmonary gradient, and moderate elevation of the pulmonary vascular resistance. 2. Normal A-VO2 difference with a normal to increased cardiac output and cardiac index at a heart rate of 70 beats per minute. 3. 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 4. Significant single vessel coronary artery disease involving the inferior ramus of the large OM branch of the aberrant circumflex coronary artery. The left anterior descending and dominant right coronary arteries have mild narrowing. THERAPEUTIC RECOMMENDATIONS Findings of the catheterization were reviewed and discussed with Drs. Jaffe and Nia and discussed with the patient. Dr. Kramer will determine the patient's future therapy and follow-up. ANESTHESIA PLAN ASA Score: 2 NPO Status: Patient instructed to be NPO after midnight Anesthesia Plan: general LMA Planned Induction: intravenous Planned Postop Destination: PACU Anesthetic plan was discussed with: patient Anesthetic Plan discussion was: Consented The patient's procedural Anesthetic Plan was discussed with the anesthesiologist bioinformatics assistant and ORTHOPEDIC SPECIALIST. Overall additional findings/comments: Explained risks/complications of general anesthesia includingcommon issues such as sore throat/numb tongue and nausea/vomiting, rare complications such as injuries to gums/lips/teeth, and extremely rare events such as heart attack, stroke, seizures, awareness under anesthesia and . Patient states understanding and all questions/concerns were addressed. . BMI, Height, Weight Tobacco History Estimated body mass index is 39.64 kg/m?? as calculated from the following: Height as of this encounter: 1.753 m (5' 9). Weight as of this encounter: 121.7 kg (268 lb 6.4 oz). History[1] Alcohol History Drug History Social History Substance and Sexual Activity Alcohol Use Not Currently Social History Substance and Sexual Activity Drug Use Never Outpatient Medications: Inpatient Medications: Medications[2] Medications[3] Allergies: Allergies[4] Relevant Problems Problem List: There are no active problems to display for this patient. Medical History: Past Medical History: Diagnosis Date Anesthesia no complications Aortic stenosis 2018 S/P AVR Atherosclerosis of coronary artery Chronic kidney disease STAGE IIIa Congestive heart failure (HCC) Essential hypertension History of diabetes mellitus Obesity Pure hypercholesterolemia Sleep apnea CPAP compliant 12/12/2024 10:39 AM PAT History Alzheimer's Disease No Blood Clot in Brain No Brain Bleed No Dementia No Parkinson's Disease No Stroke No Activity Tolerance No Comment: able to walk up 2 flights of stairs without shortness of breath Angina No Arrhythmia Yes Cardiac Echo Yes Comment: 04/11/24 Congestive heart failure Yes Coronary Stents No Hypertension Yes Murmur No Bronchitis No Emphysema No Hyperthyroidism No Hypothyroidism No Dialysis No Jaundice No Cancer No DVT/PE No Hepatitis No HIV/AIDS No Tuberculosis No Surgical History: Past Surgical History: Procedure Laterality Date 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 unknown OB History No obstetric history on file. Covid Vaccine: Lab Results: Recent Labs Base Name 12/19/24 0703 [id number]* SPECIMENTYPE Venous No results found for requested labs within last 120 days. No results found for requested labs within last 120 days. [1] Social History Tobacco Use Smoking Status Never Smokeless Tobacco Never [2] Outpatient Medications Marked as Taking for the 12/19/24 encounter (Hospital Encounter) Medication Sig Last Dose/Taking amLODIPine Take 1 (one) tablet by mouth at bedtime Taking carvedilol Take 1 (one) tablet by mouth 2 times daily 12/19/2024 Morning dapagliflozin propanediol 1 (one) tablet 12/12/2024 doxazosin Take 1 (one) tablet by mouth 2 times daily 12/19/2024 Morning dulaglutide Inject 4.5 (four and one-half) mg subcutaneously every 7 days (once a week) Taking Kerendia Take 1 (one) tablet by mouth every morning 12/19/2024 Morning furosemide Take 1 (one) tablet by mouth 2 times daily 12/19/2024 Morning hydrALAZINE Take 1 (one) tablet by mouth 3 times daily 12/19/2024 Morning lisinopril Take 1 (one) tablet by mouth 2 times daily 12/16/2024 rosuvastatin Take 1 (one) tablet by mouth at bedtime Past Week Semaglutide (1 MG/DOSE) Inject 1 (one) mg subcutaneously every 7 days (once a week) Injection day is 12/07/2024 tobramycin-dexAMETHasone INSTILL 1 DROP INTO RIGHT EYE 4 TIMES DAILY START DROPS AFTER SURGERY Taking Tresiba FlexTouch Inject 45 Units subcutaneously at bedtime 12/17/2024 vitamin D (ergocalciferol) Take 1 (one) capsule by mouth every 7 days (once a week) Past Month [3] Current Facility-Administered Medications Medication Dose Last Admin NaCl IV New Bag at 12/19/24 0720 0.9% NaCl 3 mL And 0.9% NaCl 1-10 mL hydrALAZINE 10 mg [4] No Known Allergies LATE MAKER * Ignacia Jeffrey APRN-LOADER OPERATOR - 12/12/2024 11:10 AM CST ANESTHESIA PREOPERATIVE EVALUATION NOTE Procedure: Bilateral rectus recession or left lateral recession and left medial resection, BILATERAL (Bilateral: Eye) Vitals: No data found. LMP: No 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 OB Status: unknown ANESTHESIA PRE-EVALUATION NOTE History of Present Illness: 74 y/o male PMHx of HTN, HLD, IDDM (on Farxiga - last dose 12/15/24), CKD stage IIIa (on Kerendia), obesity (BMI 39.13; on semaglutide - pt opted to hold x1 week prior to procedure, last dose 12/07/24), JENNIFER (CPAP compliant), CAD/CHF/Wenckebach type 1 second-degree AV block (04/11/24 echo - EF 66%, GIIDD, mild MR, bioprosthetic valve present in aortic position with normal transvalvular gradient; 12/23/17 RHC/C; follows cardiology), and s/p AVR (01/17/18) presents for above procedure. Denies prior complications with anesthesia. The patient is a current non-smoker. Review of Systems: History of anesthetic complications: No Sleep Apnea Risk: Yes, CPAP - compliant Malignant Hyperthermia: No GERD: No Poor Exercise Tolerance: No (able to walk up 2 flights of steps w/o SOB) Recent Chest Pain: No Shortness of Breath: No AICD/Pacemaker: No Renal Disease: Yes, other - comments (CKD stage IIIa) Diagnostic Tests: Echo(s) reviewed: Yes (04/11/24 - EF 66%, GIIDD, mild MR, bioprosthetic valve present in aortic position with normal transvalvular gradient). Cardiac Cath(s) reviewed: Yes (12/23/17 - significant single vessel CAD). Other Findings: ECHO (04/11/24): CONCLUSIONS: 1. Normal left ventricular cavity size based on 2D measurements. Normal LV wall thickness. Mild concentric left ventricular hypertrophy. Normal left ventricular systolic function. The Ejection Fraction (Campbell's) is measured at 66%. Left ventricular diastolic parameters are consistent with Grade II diastolic dysfunction (increased mean LA pressure). 2. Normal right ventricular size. Normal right ventricular systolic function. 3. The left atrium is normal in size. Moderately dilated left atrium. 4. Normal mitral valve leaflet structure. Moderate mitral annular calcification. There is mild mitral valve regurgitation. 5. A bioprosthetic valve is present in the aortic position. The aortic prosthesis demonstrates a normal transvalvular gradient for valve type and size. 6. Normal aortic root. The aortic root is normal in size. The aortic root is normal in size when indexed. The ascending aorta is normal in size when indexed. 7. Normal functioning bioprosthetic aortic valve. 9. Bioprosthetic aortic valve in the aortic position. During the echocardiogram the patient's heartrhythm was Wenckebach type 1 second-degree AV block. Therefore, variable RR intervals lead to variable gradients. During shorter RR intervals, peak gradient 24 mm Hg, mean gradient 15 mm Hg. After a pause, peak gradient increases to 40 mm Hg mean gradient 20 mm Hg. 48-HOUR HOLTER (04/23/20): IMPRESSION: 1. Multiple episodes of second-degree AV block, Mobitz type I Wenckebach pattern noted [id number]. At times, 2:1 AV block was also seen. 2. There was evidence for sinus node dysfunction in this monitoring as noted by underlying chronotropic incompetence. Minimum heart rate was 34 bpm with an average heart rate of 49 bpm and a maximum heart of 102 bpm. 3. No other significant atrial or ventricular beats were noted. PFTs (01/17/18): Interpretation: Breathing room air, SpO2 is normal at rest and during exercise sufficient to increase pulse from 64to 104 b/min, SpO2 is stable. On this basis, SpO2 is adequate at rest breathing room air and while walking breathing room air. This level of exercise is associated with no significant change of FEV1 US CAROTIDS BILATERAL (01/17/18): CONCLUSIONS: 1. No evidence of hemodynamically significant disease of the bilateral extracranial carotid system. RHC/LHC (12/23/17): DIAGNOSTIC IMPRESSIONS 1. Moderate elevation of the pulmonary artery pressure, moderate elevation of the transpulmonary gradient, and moderate elevation of the pulmonary vascular resistance. 2. Normal A-VO2 difference with a normal to increased cardiac output and cardiac index at a heart rate of 70 beats per minute. 3. 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 4. Significant single vessel coronary artery disease involving the inferior ramus of the large OM branch of the aberrant circumflex coronary artery. The left anterior descending and dominant right coronary arteries have mild narrowing. THERAPEUTIC RECOMMENDATIONS Findings of the catheterization were reviewed and discussed with Drs. Jaffe and Nia and discussed with the patient. Dr. Kramer will determine the patient's future therapy and follow-up. Anes Plan BMI, Height, Weight Tobacco History Estimated body mass index is 39.13 kg/m?? as calculated from the following: Height as of this encounter: 1.753 m (5' 9). Weight as of this encounter: 120.2 kg (265 lb). History[1] Alcohol History Drug History Social History Substance and Sexual Activity Alcohol Use Not Currently Social History Substance and Sexual Activity Drug Use Never Outpatient Medications: Inpatient Medications: Medications[2] Medications[3] Allergies: Allergies[4] Relevant Problems Problem List: There are no active problems to display for this patient. Medical History: Past Medical History: Diagnosis Date Anesthesia no complications Aortic stenosis 2018 S/P AVR Atherosclerosis of coronary artery Chronic kidney disease STAGE IIIa Congestive heart failure (HCC) Essential hypertension History of diabetes mellitus Obesity Pure hypercholesterolemia Sleep apnea CPAP compliant 12/12/2024 10:39 AM PAT History Alzheimer's Disease No Blood Clot in Brain No Brain Bleed No Dementia No Parkinson's Disease No Stroke No Activity Tolerance No Comment: able to walk up 2 flights of stairs without shortness of breath Angina No Arrhythmia Yes Cardiac Echo Yes Comment: 04/11/24 Congestive heart failure Yes Coronary Stents No Hypertension Yes Murmur No Bronchitis No Emphysema No Hyperthyroidism No Hypothyroidism No Dialysis No Jaundice No Cancer No DVT/PE No Hepatitis No HIV/AIDS No Tuberculosis No Surgical History: Past Surgical History: Procedure Laterality Date 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 unknown OB History No obstetric history on file. Covid Vaccine: Lab Results: No results found for requested labs within last 120 days. No results found for requested labs within last 120 days. [1] Social History Tobacco Use Smoking Status Never Smokeless Tobacco Never [2] Outpatient Medications Marked as Taking for the 12/19/24 encounter (Hospital Encounter) Medication Sig Last Dose/Taking amLODIPine Take 1 (one) tablet by mouth at bedtime Taking carvedilol Take 1 (one) tablet by mouth 2 times daily Taking dapagliflozin propanediol 1 (one) tablet Taking doxazosin Take 1 (one) tablet by mouth 2 times daily Taking dulaglutide Inject 4.5 (four and one-half) mg subcutaneously every 7 days (once a week) Taking Kerendia Take 1 (one) tablet by mouth every morning Taking furosemide Take 1 (one) tablet by mouth 2 times daily Taking hydrALAZINE Take 1 (one) tablet by mouth 3 times daily Taking lisinopril Take 1 (one) tablet by mouth 2 times daily Taking rosuvastatin Take 1 (one) tablet by mouth at bedtime Taking Semaglutide (1 MG/DOSE) Inject 1 (one) mg subcutaneously every 7 days (once a week) Injection day is Taking tobramycin-dexAMETHasone INSTILL 1 DROP INTO RIGHT EYE 4 TIMES DAILY START DROPS AFTER SURGERY Taking Tresiba FlexTouch Inject 45 Units subcutaneously at bedtime Taking vitamin D (ergocalciferol) Take 1 (one) capsule by mouth every 7 days (once a week) Taking [3] No current facility-administered medications for this encounter. [4] No Known Allergies LATE MAKER documented in this encounter Procedure Notes * Maxx Pichardo APRN-CRNA - 12/19/2024 7:53 AM CSTAssociated Order(s): LMA Placement LMA Placement Procedure/LDA Note: Patient Location: OR. LMA Insertion Date/Time: 12/19/2024 7:44 AM Procedure: LMA Pretreatment: 100% O2 Induction: standard IV Patient position: supine. Mask Ventilation: not attempted Type: LMA Size: 5 Number of Attempts: 1. Cuff volume (mL): 30 Placement verified by: direct visualization and CO2 monitor Dentition unchanged? Yes Procedure Start Time: 12/19/2024 7:44 AM. Staff Section Anesthesia Provider: Jacobo Leon MD, Performed the procedure Provider #1: Maxx Pichardo APRN-CRNA. Provider #2: Jaswant Pickens, Performed the procedure. 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.16] Pre-op Meds (From admission, onward) Start Stop Status Route Frequency Ordered 12/19/24 0645 0.9% NaCl infusion -- Dispensed IV CONTINUOUS 12/19/24 0630 12/19/24 0630 0.9% NaCl injection 1-10 mL Placed in And Linked Group -- Dispensed IK PRN 12/19/24 0630 12/19/24 0645 0.9% NaCl injection 3 mL Placed in And Linked Group -- Dispensed IK EVERY 8 HOURS 12/19/24 0630 12/19/24 0929 acetaminophen (Tylenol) tablet 1,000 mg -- Verified PO ONCE PRN 12/19/24 0929 12/19/24 0929 albuterol-ipratropium (Duo-Neb) nebulizer solution 3 mL -- Verified IN POST-OP MULTIPLE 12/19/24 0929 12/19/24 0750 dexAMETHasone Sod Phosphate PF injection -- Sent IV PRN 12/19/24 0759 12/19/24 0929 droPERidol (Inapsine) injection 0.625 mg -- Verified IV ONCE PRN 12/19/24 0929 12/19/24 0737 famotidine (Pepcid) injection -- Sent IV PRN 12/19/24 0759 12/19/24 0739 fentaNYL (PF) (Sublimaze) injection -- Sent IV PRN 12/19/24 0838 12/19/24 09 fentaNYL (PF) (Sublimaze) injection 25 mcg -- Verified IV EVERY 10 MIN PRN 12/19/24 0929 12/19/24 0845 glycopyrrolate (Robinul) injection -- Sent IV PRN 12/19/24 0845 12/19/24 0730 hydrALAZINE (Apresoline) injection 10 mg 12/19/24 0720 Completed IV ONCE 12/19/24 0714 12/19/24 09 hydrALAZINE (Apresoline) injection 5 mg -- Verified IV POST-OP MULTIPLE 12/19/24 0929 12/19/24 08 HYDROmorphone (Dilaudid) injection -- Sent IV PRN 12/19/24 0853 12/19/24928 HYDROmorphone (Dilaudid) injection 0.2 mg -- Verified IV EVERY 15 MIN PRN 12/19/24 0929 12/19/24928 HYDROmorphone (Dilaudid) injection 0.5 mg -- Verified IV EVERY 10 MIN PRN 12/19/24 0929 12/19/24 09 lactated ringers infusion -- Dispensed IV CONTINUOUS 12/19/24 0929 12/19/24 07 lidocaine HCl (PF) (Xylocaine MPF) 2 % injection -- Sent INFILTRATION PRN 12/19/24 0759 12/19/24 09 naloxone (Narcan) injection 0.04 mg -- Verified IV POST-OP MULTIPLE 12/19/24 0929 12/19/24 09 ondansetron (Zofran) injection 4 mg -- Verified IV ONCE PRN 12/19/24 0929 12/19/24 09 oxyCODONE (immediate release) (Roxicodone) tablet 5 mg -- Verified PO ONCE PRN 12/19/24 0929 12/19/24 08 phenylephrine (Mydfrin) 2.5% ophthalmic solution -- Sent PRN 12/19/24 0811 12/19/24 09 prednisoLONE acetate (Pred Forte) 1 % ophthalmic suspension -- Sent PRN 12/19/24 0933 12/19/24 09 prochlorperazine (Compazine) injection 10 mg -- Verified IV ONCE PRN 12/19/24 0929 12/19/24 0740 propofol (Diprivan) injection -- Sent IV PRN 12/19/24 0800 12/19/24 0929 throat lozenge 1 lozenge Note to Pharmacy: PRN frequencies will not automatically dispense -- Verified PO EVERY 1 HOUR PRN 12/19/24 0929 12/19/24 0934 tobramycin (Tobrex) 0.3 % ophthalmic solution -- Sent PRN 12/19/24 0935 12/19/24 0934 tobramycin (Tobrex) ophthalmic ointment -- Sent PRN 12/19/24 0934 12/19/24 0841 vasopressin (Vasostrict) 40 Units in NaCl IV 0.9 % 40 mL infusion -- Sent IV CONTINUOUS PRN 12/19/24 0841 Post-op Diagnosis: * Diplopia [H53.2] * Exotropia, alternating, 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 Allergies[1] Vitals: Patient Vitals for the past 3 hrs: BP Temp Pulse Resp SpO2 12/19/24 0733 175/95 -- -- -- -- 12/19/24 0729 (!) 190/97 -- -- -- -- 12/19/24 0654 (!) 206/103 -- 53 -- -- 12/19/24 0649 (!) 195/115 36.2 ??C 62 13 96 % Lines, Drains, and Airways Type Details Placement Removal Peripheral IV Date: 12/19/24; Time: 719; Orientation: Anterior, Right; Location: Forearm; Gauge: 20 G 12/19/24 0720 by Jes White, RN LMA 12/19/24; 0744 (created via procedure documentation); Jacobo Leon MD; 100% O2; Standard IV; mask not attempted; LMA; 5.0; Direct visualization, CO2 Monitor; 12/19/24; 0936 12/19/24 0744 by Maxx Pichardo APRN-CRNA 12/19/24 0936 by Maxx Pichardo APRN-CRNA Intraprocedure I/O Totals Intake 0.9% NaCl infusion 800.00 mL Total Intake 800 mL Patient Transfer Location: PACU Transport Airway: spontaneous respirations and supplemental O2 Transport Monitoring: heart rate and continuous pulse oximetry Notable Events: None Handoff Given? Yes Checklist or Protocol - The schwarz handoff elements that must be included in the transfer of care checklist include: 1. Identification of patient. 2. Identification of responsible practitioner (PACU nurse or advanced practitioner). 3. Discussion of pertinent medical history. 4. Discussion of the surgical/procedure course (procedure, reason for surgery, procedure performed). 5. Intraoperative anesthetic management and issue/concerns. 6. Expectations/Plans for the early post-procedure period. 7. Opportunity for questions and acknowledgement of understanding of report from the receiving PACUteam. NOTABLE EVENTS: No notable events documented. ROBERT Farias [1] No Known Allergies LATE MAKER documented in this encounter Plan of Treatment Upcoming Encounters Date Type Department Care Team (Late st Contact Info) Description 12/25/2024 1:30 PM TEMPLATE MAKER Office Visit [facility] - Ophthalmology [address] [place] [phone] Toyin Coombs MD [address] [place] [address] [place] [address] Scheduled Procedures Name Priority Associated Diagnoses Date/Ti me CORRECTION STRABISMUS (RECESSION/RESECTION EYE MUSCLE) Diplopia Exotropia, alternating, with A pattern 12/19/2024 7:30 AM TEMPLATE MAKER documented as of this encounter Procedures Procedure Name Priority Date/Time Associated Diagnosis Comments LARYNGEAL MASK AIRWAY Routine 12/19/2024 7:53 AM TEMPLATE MAKER documented in this encounter Results * LARYNGEAL MASK AIRWAY (12/19/2024 7:53 AM TEMPLATE MAKER) Narrative Maxx Pichardo APRN-CRNA - 12/19/2024 7:53 AM TEMPLATE MAKER Maxx Pichardo APRN-CRNA 12/19/2024 7:55 AM LMA Placement Procedure/LDA Note: Patient Location: OR. LMA Insertion Date/Time: 12/19/2024 7:44 AM Procedure: LMA Pretreatment: 100% O2 Induction: standard IV Patient position: supine. Mask Ventilation: not attempted Type: LMA Size: 5 Number of Attempts: 1. Cuff volume (mL): 30 Placement verified by: direct visualization and CO2 monitor Dentition unchanged? Yes Procedure Start Time: 12/19/2024 7:44 AM. Staff Section Anesthesia Provider: Jacobo Leon MD, Performed the procedure Provider #1: Maxx Pichardo APRN-ORTHOPEDIC SPECIALIST. Provider #2: Jaswant Pickens, Performed the procedure. Jacobo Leon MD GENERAL ANESTHESIA ORDERABLES Fi nal Result documented in this encounter Visit Diagnoses Not on filedocumented in this encounter Administered Medications Inactive Administered Medications - up to 3 most recent administrations Medication Order MAR Action Action Date Dose Rate Site 0.9% NaCl infusion at 75 mL/hr, Intravenous, CONTINUOUS, Starting on Wed12/19/24 at 0645, Until Wed12/19/24 at 1150, Pre-op Restarted 12/19/2024 9:25 AM TEMPLATE MAKER Rate Change 12/19/2024 7:36 AM TEMPLATE MAKER 50 mL/hr $ New Bag/Syringe 12/19/2024 7:20 AM TEMPLATE MAKER 75 mL/ hr dexAMETHasone Sod Phosphate PF injection Intravenous, PRN, Starting on Wed12/19/24 at 0750, Until Wed12/19/24 at 0938, Anesthesia Intra-op $ Given 12/19/2024 7:50 AM TEMPLATE MAKER 4 mg famotidine (Pepcid) injection Intravenous, PRN, Starting on Wed12/19/24 at 0737, Until Wed12/19/24 at 0938, Anesthesia Intra-op $ Given 12/19/2024 7:37 AM TEMPLATE MAKER 20 mg fentaNYL (PF) (Sublimaze) injection Intravenous, PRN, Starting on Wed12/19/24 at 0739, Until Wed12/19/24 at 0938, Anesthesia Intra-op $ Given 12/19/2024 7:39 AM TEMPLATE MAKER 100 mcg glycopyrrolate (Robinul) injection Intravenous, PRN, Starting on Wed12/19/24 at 0845, Until Wed12/19/24 at 0938, Anesthesia Intra-op $ Given 12/19/2024 8:45 AM TEMPLATE MAKER 0.3 mg HYDROmorphone (Dilaudid) injection Intravenous, PRN, Starting on Wed12/19/24 at 0853, Until Wed12/19/24 at 0938, Anesthesia Intra-op $ Given 12/19/2024 8:53 AM TEMPLATE MAKER 0.2 mg $ Given 12/19/2024 8:10 AM TEMPLATE MAKER 0.2 mg lidocaine HCl (PF) (Xylocaine MPF) 2 % injection Infiltration, PRN, Starting on Wed12/19/24 at 0739, Until Wed12/19/24 at 0938, Anesthesia Intra-op $ Given 12/19/2024 7:39 AM TEMPLATE MAKER 100 mg propofol (Diprivan) injection Intravenous, PRN, Starting on Wed12/19/24 at 0740, Until Wed12/19/24 at 0938, Anesthesia Intra-op $ Given 12/19/2024 7:40 AM TEMPLATE MAKER 120 mg vasopressin (Vasostrict) 40 Units in NaCl IV 0.9 % 40 mL infusion Intravenous, CONTINUOUS PRN, Starting on Wed12/19/24 at 0841, Until Wed12/19/24 at 0938, Anesthesia Intra-op $ New Bag/Syringe 12/19/2024 8:41 AM TEMPLATE MAKER 1 Units documented in this encounter Care Teams High Man Relationship Specialty Start Date End Date Josefa Almaraz MD [address] [place] [address] PCP - General 08/23/20 documented as of this encounter
--- OUTSIDE RECORDS SUMMARY | 2024-12-19 17:31 | XMS_ITS | Clinical Summary ---
Author Organization [facility] [email or web address] Address [address] [place] [address] Care Team Providers Care Work Study Student Name Role Phone Josefa Almaraz MD Primary Care Provider Source Comments [facility] [email or web address],non-owned Affiliates and Associated Physician Practices is amultiple site organization consisting of ambulatory clinics and hospital sitesin [place], [place], [place] and [place]. This disclosure is being madepursuant to the Care Everywhere program and may not contain all information available regarding this patient. Last updated 17.[facility] [email or web address] Allergies No known active allergies Medications * Be aware that medications may not be up to date on this document. Alwaysverify current medications with the patient. amLODIPine (Norvasc) 10 MG tablet Take 1 (one) tablet by mouth once daily 04/12/19 25 Active carvedilol (Coreg) 3.125 MG tablet Take 1 (one) tablet by mouth 2 times daily with morning and evening meal Active Cholecalciferol 1.25 MG (06049 UT) Take 1 capsule by mouth every 7 days (once a week) Active dapagliflozin propanediol (Farxiga) 5 MG tablet 1 (one) tablet Activ e doxazosin (Cardura) 4 MG tablet Take 1 (one) tablet by mouth 2 times daily 04/12/19 25 Active dulaglutide (Trulicity) 4.5 MG/0.5ML injection Inject 4.5 (four and one-half) mg subcutaneously every 7 days (once a week) Active finerenone (Kerendia) 10 MG tablet Take 1 (one) tablet by mouth every morning 04/14/19 24 Active furosemide (Lasix) 40 MG tablet Take 1 (one) tablet by mouth 2 times daily 10/27/19 24 Active lisinopril (Prinivil; Zestril) 20 MG tablet Take 1 (one) tablet by mouth 2 times daily 04/12/19 25 Active Semaglutide (1 MG/DOSE) 4 MG/3ML Subcutaneous Solution Pen-injector (Ozempic) Inject 1 (one) mg subcutaneously every 7 days (once a week) Injection day is Active rosuvastatin (Crestor) 40 MG tablet Take 1 (one) tablet by mouth at bedtime 04/12/19 25 Active vitamin D, ergocalciferol, (Drisdol) 1.25 MG (84482 UT) capsule Take 1 (one) capsule by mouth every 7 days (once a week) 05/13/19 25 Active Glucagon (Gvoke HypoPen 2-Pack) 1 MG/0.2ML SOAJ Inject 1 mg as needed by subcutaneous route as needed for 1 day. Active Tresiba FlexTouch 200 UNIT/ML pen Inject 45 Units subcutaneously at bedtime Active insulin lispro (HumaLOG;ADMelog ) 100 UNIT/ML pen INJECT 20 UNITS SUBCUTANEOUSLY THREE TIMES DAILY WITH MEALS Active hydrALAZINE (Apresoline) 25 MG tablet Take 1 (one) tablet by mouth 3 times daily 12/31/19 24 Active prednisoLONE acetate (Pred Forte) 1 % ophthalmic suspension Instill 1 (one) drop into both eyes 4 times daily 12/21/19 25 Active tobramycin (Tobrex) 0.3 % ophthalmic solution Instill 1 (one) drop into both eyes every 4 hours 12/20/19 25 Active acetaminophen-co deine (Tylenol #3) 300-30 MG tablet Take 1 (one) tablet by mouth every 6 hours as needed for Pain 10 tablet 12/20/19 25 Active hydrALAZINE (Apresoline) 50 MG tablet Take 1 (one) tablet by mouth 3 times daily 05/31/19 24 025 Discontin ued(List Clean-Up) tobramycin-dexAM ETHasone (Tobradex) 0.3-0.1 % ophthalmic suspension INSTILL 1 DROP INTO RIGHT EYE 4 TIMES DAILY START DROPS AFTER SURGERY 12/15/19 24 025 Discontin ued(List Clean-Up) amLODIPine (Norvasc) 5 MG tablet Take 1 (one) tablet by mouth at bedtime 025 Discontin ued(List Clean-Up) carvedilol (Coreg) 3.125 MG tablet Take 1 (one) tablet by mouth 2 times daily 04/12/19 025 Discontin ued(List Clean-Up) Encounters Date Type Department Care Team Description 12/19/2024 7:36 AM TELLER HEAD Anesthesia Event [facility] [address] [place] [phone] Jacobo Leon MD Bair, Jenelle, DRAPERY COUNSELOR-SACK SORTER 12/19/2024 7:25 AM TELLER HEAD - 12/19/2024 9:15 AM TELLER HEAD Surgery [facility]GERY [address] [place] [phone] Toyin Coombs MD left lateral recession and left medial resection 12/19/2024 6:26 AM TELLER HEAD - 12/19/2024 10:49 AM TELLER HEAD Hospital Encounter [facility] [address] [place] [phone] Toyin Coombs MD Surgery General Discharge Disposition: Home or Self Care 12/19/2024 Travel from Last 3 Months Social History Tobacco Use Types Packs/Day Years [...] on file Sexual Orientation Not on file Last Filed Vital Signs Vital Sign Reading Time Taken Comments Blood Pressure 156/82 12/19/2024 10:00 AM TELLER HEAD Pulse 75 12/19/2024 10:00 AM TELLER HEAD Temperature 36.2 C (97.2 F) 12/19/2024 6:49 AM TELLER HEAD Respiratory Rate 15 12/19/2024 10:0 0 AM TELLER HEAD Oxygen Saturation 93% 12/19/2024 10: 00 AM TELLER HEAD Inhaled Oxygen Concentration - - Weight 121.7 kg (268 lb 6.4 oz) 12/19/2024 6:38 AM TELLER HEAD Height 175.3 cm (5' 9) 12/19/2024 6:38 AM TELLER HEAD Body Mass Index 39.64 12/19/2024 6:38 AM TELLER HEAD Plan of Treatment Upcoming Encounters Date Type Department Care Team (Late st Contact Info) Description 12/25/2024 1:30 PM TELLER HEAD Office Visit [facility]hthalmology [facility], [place] [phone] Toyin Coombs MD [facility] DEPT [place] [address] Scheduled Procedures Name Priority Associated Diagnoses Date/Ti me CORRECTION STRABISMUS (RECESSION/RESECTION EYE MUSCLE) Diplopia Exotropia, alternating, with A pattern 12/19/2024 7:30 AM TELLER HEAD Health Maintenance Due Date Last Done Comments COLOGUARD (AGES 45-75) - COL ON CA SCREENING 1950 COLON MONITORING 1950 COLONOSCOPY - COLON CA SCREENING 1950 CT COLONOGRAPHY - COLON CA SCREENING 1950 Colorectal Cancer Screening 1950 FIT - COLON CA SCREENING 1950 FLEX SIG - COLON CA SCREENING 1950 HEPATITIS C SCREENING 04/04/1968 DTAP/TDAP/TD VACCINES (1 - Tdap) 1969 PNEUMOCOCCAL VACCINE 50+ (1 of 1 - PCV) 2000 ZOSTER VACCINE (1 of 2) 2000 DEPRESSION SCREENING 02/09/2024 MEDICARE AWV CALENDAR YEAR 2024 COVID-19 VACCINE ( - 2023-2 5 season) 2024 INFLUENZA VACCINE (#1) 2024 Respiratory Syncytial Virus (RSV) Vaccine Pt: or over 60 yrs (1 - 1-dose 75+ series) 2025 HEPATITIS B VACCINE Aged Out No longe r eligible based on patient's age to complete this topic HIB VACCINE Aged Out No longer eligi ble based on patient's age to complete this topic HPV VACCINE Aged Out No longer eligi ble based on patient's age to complete this topic MENINGOCOCCAL (Group B) VACC INE SHARED DECISION-MAKING Aged Out No longer eligibl e based on patient's age to complete this topic MENINGOCOCCAL GROUPS A/C/Y/W VACCINE Aged Out No longer eligible b ased on patient's age to complete this topic Procedures Procedure Name Priority Date/Time Associated Diagnosis Comments GLUCOSE - POINT OF CARE Routine 12/19/2024 9:46 AM TELLER HEAD LARYNGEAL MASK AIRWAY Routine 12/19/2024 7:53 AM TELLER HEAD GLUCOSE - POINT OF CARE Routine 12/19/2024 7:03 AM TELLER HEAD from Last 3 Months Results * (ABNORMAL) GLUCOSE - POINT OF CARE (12/19/2024 9:46 AM TELLER HEAD) Only the most recent of2 resultswithin the time period is included. Glucose WB/POC 127(H) 70 - 99 mg/dL 12/19/2024 9:47 AM TELLER HEAD [facility] Specimen Type Arterial/C apillary 12/19/2024 9:47 AM TELLER HEAD [facility] Blood BLOOD SPECIMEN / Unknown 12/19/2024 9:46 AM TELLER HEAD 12/19/2024 9:47 AM TELLER HEAD Toyin Coombs MD LAB - POINT OF CARE ORDERABLES Final Result [address] [phone], [facility] [phone] * LARYNGEAL MASK AIRWAY (12/19/2024 7:53 AM TELLER HEAD) Narrative Maxx Pichardo APRN-CRNA - 12/19/2024 7:53 AM TELLER HEAD Maxx Pichardo APRN-CRNA 12/19/2024 7:55 AM LMA [...] Performed the procedure Provider #1: Maxx Pichardo APRN-JESSIE. Provider #2: Jaswant Pickens, Performed the procedure. Jacobo Leon MD GENERAL ANESTHESIA ORDERABLES Fi nal Result from Last 3 Months Insurance Care Teams Work Study Student Relationship Specialty Start Date End Date Josefa Almaraz MD [address] [place] [phone] PCP - General 08/23/20
--- OUTSIDE RECORDS SUMMARY | 2024-12-19 17:31 | XMS_ITS | Clinical Summary ---
Author Organization [facility] Address [address] [place] [phone] Care Team Providers Care Management Consulting Name Role Phone Unavailable Primary Care Provider Unavailabl e Social History Tobacco Use Types Packs/Day Years Used Date Smoking Tobacco: Never Assessed Sex and Gender Information Value Date Recorded Sex Assigned at Not on file Legal Sex Male 10:49 PM CDT Gender Identity Not on file Sexual Orientation Not on file Plan of Treatment Health Maintenance Due Date Last Done Comments Colorectal Cancer Screening Colonoscopy (10 Years) 1950 Hepatitis C 1968 DTaP, Tdap and Td Vaccines ( 1 - Tdap) 1969 Zoster Vaccines (1 of 2) 2000 Annual Medicare Wellness Visit 04/10/2015 Pneumococcal Vaccine: 50+ Years (2 of 2 - PCV20 or PCV21) 01/01/2020 01/08/2019, 12/31/2018 COVID-19 Vaccine (2024-2 6 season) 2024 Influenza Adult (#1) 2024 RSV Immunization or 60+ Years (1 - 1-dose 75+ series) 2025 Hepatitis A Vaccines Aged Out No long er eligible based on patient's age to complete this topic Meningococcal B Vaccine Aged Out No l onger eligible based on patient's age to complete this topic Meningococcal Vaccine Aged Out No tang betty eligible based on patient's age to complete this topic RSV Immunizations Under 20 Months Aged Out No longer eligible b ased on patient's age to complete this topic Insurance [facility] MEDICARE
--- OUTSIDE RECORDS SUMMARY | 2024-12-19 17:31 | XMS_ITS | Encounter Summary ---
Author Organization [facility] Address [address] [facility] [address] Care Team Providers Care Latcher Name Role Phone Josefa Almaraz MD Primary Care Provider Reason for Visit * Reason Onset Date Comments Scheduling 06/16/2024 Encounter Details Date Type Department Care Team (Late Contact Info) Description 06/16/2024 Telephone [facility] - Ophthalmology [address] [place] [phone] Toyin Coombs MD [address] [place] [address] [place] [phone] Scheduling Social History Tobacco Use Types Packs/Day Years Used Date Smoking Tobacco: Never Assessed Sex and Gender Information Value Date Recorded Sex Assigned at Not on file Legal Sex Male 11:46 AM CDT Gender Identity Not on file Sexual Orientation Not on file documented as of this encounter Miscellaneous Notes * Telephone Encounter - Ho Chew - 06/16/2024 2:28 PM CDT Pt calling per a referral that has been sent in to be seen for Diplopia referred by provider Dr Ceja. Kole as not happy with how far the next available appointment is and would like to speak with someone to be seen sooner if possible. documented in this encounter Plan of Treatment Upcoming Encounters Date Type Department Care Team (Late Contact Info) Description 12/25/2024 1:30 PM NEW PRODUCT TRAINER Office Visit [facility] - Ophthalmology [address] [place] [phone] Toyin Coombs MD [address] [facility] [place] [phone] Scheduled Procedures Name Priority Associated Diagnoses Date/Ti me CORRECTION STRABISMUS (RECESSION/RESECTION EYE MUSCLE) Diplopia Exotropia, alternating, with A pattern 12/19/2024 7:30 AM NEW PRODUCT TRAINER documented as of this encounter Visit Diagnoses Not on filedocumented in this encounter Care Teams Latcher Relationship Specialty Start Date End Date Josefa Almaraz MD [address] [place] [phone] PCP - General 08/23/20 documented as of this encounter
--- OUTSIDE RECORDS SUMMARY | 2024-12-19 17:31 | XMS_ITS | Data Portability ---
Author Organization [place] [facility], Main Office Address [address] [place] [address] Assessment No assessment recorded. Plan of Treatment Reminders Order Date Submit Date Provider Last Modified By Organization Details Last Modified Time Details Appointments None recorded. Lab lipid panel, serum 2022 023 [employer] [facility], [address], [address], [place], [address], 3 14:44:24 CMP, serum or plasma 2022 023 [employer] [facility], [address], [address], [place], [address], 3 14:06:46 HbA1c (hemoglobin A1c), blood 2022 023 [employer] [facility], [address], [place], [address], 3 14:44:23 CMP, serum or plasma 2022 023 [employer] [facility], [address], [place], [address], 3 01:12:27 microalbumi n/creatinin e, mass ratio, urine 2022 023 [employer] [facility], [address], [place], [address], 3 14:44:22 Referral endocrinolo gy referral 2022 023 [email or web address] 1 Jocelyn Charles MD, [address],, [facility], [place], [address], 3 12:59:26 Procedures None recorded. Surgeries None recorded. Imaging None recorded. Medication Orders Kerendia 10 mg tablet 2022 023 [facility], [address] [facility] [address], [place], [address], 3 12:48:26 Patient TargetsNo targets recorded. Patient InstructionsNo instructions recorded. Reason for Referral Endocrinology Referral for U ncontrolled type 2 diabetes mellitus Referring Physician: Angelica Szymanski, Endocrinology, Encounter Date: 09/25/2022 Results Created Date Observation Date Name Description Value Unit Range Abnormal Flag Note LastModifiedBy Organization Detail LastModifiedTime 11/21/19 21 11/20/2020 HEMOG LOBIN A1C hemoglobin A1C 8.1 %_of_ total _HGB <5.7 high For someo ne witho ut known diabe zonia, a hemog lobin A1c value of 6.5% or great er indic ates that they may have diabe zonia and this shoul d be confi rmed with a follo w-up test. For someo ne with known diabe zonia, a value <7% indic ates that their diabe zonia is well contr olled and a value great er than or equal to 7% indic ates subop timal contr ol. A1c targe ts shoul d be indiv idual ized based on durat ion of diabe zonia, age, comor bid condi tions , and other consi derat ions. Curre ntly, no conse nsus exist s anselmo velasquez use of hemog lobin A1c for diagn osis of diabe zonia for child fabiola. NO COLLE CTION DATE RECEI OLLIE. WE HAVE USED THE DATE THE SPECI MEN WAS RECEI OLLIE BY THIS LABOR ATORY THE COLLE CTION DATE. IF THIS IS INCOR RECT, PLEAS E CONTA CT CLIEN T SERVI JANE. PHONE NUMBE R: [phone] Not Available [facility] [address], [place], [address], 11/20/2020 17:41:22 11/21/19 21 11/20/2020 TSH TSH 1.64 mIU/L 0.40-4 .50 normal Not Available [address], [address], 11/20/2020 17:41:21 11/21/19 21 11/20/2020 T4, FREE T4, free 1.2 NG/dL 0.8-1. 8 normal Not Available [address], [address], 11/20/2020 17:41:21 11/21/19 21 11/20/2020 CLIEN T EDUCA TION TRACK ING client education tracking [facility] sit[facility] n we recei ollie did not inclu de a [facility] nt numbe r. To preve nt delay s in testi ng and proce ssing of your order s pleas e provi de the follo wing infor matio n with every order submi tted: [facility] acc[facility] nt numbe r and accou nt name Clien t addre ss Clien t phone and fax numbe r NPI numbe r of order ing physi jay jay along with the physi jay jay name. Not Available [address], [address], 11/20/2020 17:41:20 11/21/19 21 11/20/2020 EXTRA URINE SPECI MEN extra urine specimen Not Available [address], [address], 11/20/2020 17:41:20 11/21/19 21 11/20/2020 EXTRA URINE SPECI MEN comment An extra tube was recei ollie witho ut a test speci fied. We will hold this speci men in our cold stora ge in the event addit ional testi ng is reque sted. Pleas e conta ct your local clien t servi ce repre senta tive for fur er ken tance withi n 72 hours due to speci men stabi lity. Not Available [address] [address] [place], [address], 11/20/2020 17:41:20 11/21/19 21 11/20/2020 ALBUM IN, RANDO M URINE W/CRE ATINI NE creatinine, random urine 21 mg/dL 20-320 normal Not Available [address] [address] [place], [address], 11/20/2020 17:41:19 11/21/19 21 11/20/2020 ALBUM IN, RANDO M URINE W/CRE ATINI NE albumin, urine 24.0 mg/dL see note: normal Refer ence Range : Refer ence Range Not estab lishe d Not Available [address] , [place], [address], 11/20/2020 17:41:19 11/21/1911/20/2020 ALBUM IN, RANDO M URINE W/CRE ATINI NE albumin/crea tinine ratio, random urine 1143 mcg/m g_cre at <30 high The ADA defin es abnor malit ies in album in excre tion as follo ws: Album inuri a Categ ory Resul t (mcg/ mg creat inine ) Johanny l to Mildl y incre ased <30 Moder ately incre ased 30-29 9 Sever alecia incre ased > OR = 300 The ADA recom mends that at least two of three speci mens colle cted withi n a 3-6 month perio d be abnor mal befor e consi dallas g a patie nt to be withi n a diagn ostic categ ory. Not Available [address], [address], 11/20/2020 17:41:19 11/21/19 21 11/20/2020 COMPR EHENS FREDO METAB OLIC PANEL glucose 134 mg/dL 65-99 high Fasti ng refer ence inter flaco For someo ne witho ut known diabe zonia, a gluco se value >125 mg/dL indic ates that they may have diabe zonia and this shoul d be confi rmed with a follo w-up test. Not Available [address], [address], 11/20/2020 17:41:18 11/21/19 21 11/20/2020 COMPR EHENS FREDO METAB OLIC PANEL urea nitrogen (BUN) 31 mg/dL 7-25 high Not Available [facility] [address], [address], 11/20/2020 17:41:18 11/21/19 21 11/20/2020 COMPR EHENS FREDO METAB OLIC PANEL creatinine 1.27 mg/dL 0.70-1 .18 high For patie nts >49 years of age, the refer ence limit for Creat inine is appro ximat alecia 13% highe r for peopl e ident ified as Afric an-Am shonda n. Not Available [address] [address] [place], [address], 11/20/2020 17:41:18 11/21/19 21 11/20/2020 COMPR EHENS FREDO METAB OLIC PANEL eGFR non-afr. greek 57 mL/mi n/1.7 3m2 > or = 60 low Not Available [address], [address], 11/20/2020 17:41:18 11/21/19 21 11/20/2020 COMPR EHENS FREDO METAB OLIC PANEL eGFR 66 mL/mi n/1.7 3m2 > or = 60 normal Not Available [address], [address], 11/20/2020 17:41:18 11/21/19 21 11/20/2020 COMPR EHENS FREDO METAB OLIC PANEL BUN/creatini ne ratio 24 (calc ) 6-22 high Not Available [address] [place], [address], 11/20/2020 17:41:18 11/21/1911/20/2020 COMPR EHENS FREDO METAB OLIC PANEL sodium 142 mmol/ L 135-14 6 normal Not Available [address], [address], 11/20/2020 17:41:18 11/21/19 21 11/20/2020 COMPR EHENS FREDO METAB OLIC PANEL potassium 4.5 mmol/ L 3.5-5. 3 normal Not Available [address], [address], 11/20/2020 17:41:18 11/21/1911/20/2020 COMPR EHENS FREDO METAB OLIC PANEL chloride 105 mmol/ L 98-110 normal Not Available [address], [address], 11/20/2020 17:41:18 11/21/19 21 11/20/2020 COMPR EHENS FREDO METAB OLIC PANEL carbon dioxide 29 mmol/ L 20-32 normal Not Available [address], [address], 11/20/2020 17:41:18 11/21/19 21 11/20/2020 COMPR EHENS FREDO METAB OLIC PANEL calcium 9.8 mg/dL 8.6-10 .3 normal Not Available [address], [address], 11/20/2020 17:41:18 11/21/1911/20/2020 COMPR EHENS FREDO METAB OLIC PANEL protein, total 7.6 g/dL 6.1-8. 1 normal Not Available [address], [address], 11/20/2020 17:41:18 11/21/19 21 11/20/2020 COMPR EHENS FREDO METAB OLIC PANEL albumin 4.3 g/dL 3.6-5. 1 normal Not Available [address], [address], 11/20/2020 17:41:18 11/21/19 21 11/20/2020 COMPR EHENS FREDO METAB OLIC PANEL globulin 3.3 g/dL_ (calc ) 1.9-3. 7 normal Not Available [address], [address], 11/20/2020 17:41:18 11/21/19 21 11/20/2020 COMPR EHENS FREDO METAB OLIC PANEL albumin/glob ulin ratio 1.3 (calc ) 1.0-2. 5 normal Not Available [address], [address], 11/20/2020 17:41:18 11/21/19 21 11/20/2020 COMPR EHENS FREDO METAB OLIC PANEL ALT 34 U/L 9-46 normal Not Available [address], [address], 11/20/2020 17:41:18 11/21/19 21 11/20/2020 COMPR EHENS FREDO METAB OLIC PANEL bilirubin, total 0.5 mg/dL 0.2-1. 2 normal Not Available [address], [address], 11/20/2020 17:41:18 11/21/19 21 11/20/2020 COMPR EHENS FREDO METAB OLIC PANEL alkaline phosphatase 92 U/L 35-144 normal Not Available [address], [address], 11/20/2020 17:41:18 11/21/19 21 11/20/2020 COMPR EHENS FREDO METAB OLIC PANEL AST 25 U/L 10-35 normal Not Available [address], [address], 11/20/2020 17:41:18 11/21/19 21 11/20/2020 LIPID PANEL , STAND KHLOE LDL-choleste rol 89 mg/dL _(khushi c) normal Refer ence range : <100 Mayco able range <100 mg/dL for prima ry preve ntion ; <70 mg/dL for patie nts with CHD or diabe tic patie nts with > or = 2 CHD risk facto rs. LDL-C is now calcu lated using the Anabel n-Hop kins calcu latsuzy n, which is a valid ated novel metho d provi ding zofia r accur acy than the Fried maik equat ion in the estim ation of LDL-C . Anabel turner SS et al. SURI. 2013; 310(1 9): 2061- 2068 (http ://ed ucati on.AdmitSee carltonB&W Loudspe[employer]. com/f aq/FA Q164) Not Available [address], [address], 11/20/2020 17:41:18 11/21/19 21 11/20/2020 LIPID PANEL , STAND KHLOE cholesterol, total 162 mg/dL <200 normal Not Available [address], [address], 11/20/2020 17:41:18 11/21/19 21 11/20/2020 LIPID PANEL , STAND KHLOE HDL cholesterol 51 mg/dL > or = 40 normal Not Available [address], [address], 11/20/2020 17:41:18 11/21/19 21 11/20/2020 LIPID PANEL , STAND KHLOE triglyceride s 121 mg/dL <150 normal Not Available [address], [address], 11/20/2020 17:41:18 11/21/19 21 11/20/2020 LIPID PANEL , STAND KHLOE chol/HDLC ratio 3.2 (calc ) <5.0 normal Not Available [facility] [address] [address], [place], [address], 11/20/2020 17:41:18 11/21/19 21 11/20/2020 LIPID PANEL , STAND KHLOE non HDL cholesterol 111 mg/dL _(khushi c) <130 normal For patie nts with diabe zonia plus 1 major ASCVD risk facto r, treat ing to a non-H DL-C goal of <100 mg/dL (LDL- C of <70 mg/dL ) is consi dered a thera peuti c optio n. Not Available [facility] [address] [address], [place], [address], 11/20/2020 17:41:18 03/26/19 22 03/27/2021 HEMOG LOBIN A1C hemoglobin A1C 9.1 %_of_ total _HGB <5.7 high For someo ne witho ut known diabe zonia, a hemog lobin A1c value of 6.5% or great er indic ates that they may have diabe zonia and this shoul d be confi rmed with a follo w-up test. For someo ne with known diabe zonia, a value <7% indic ates that their diabe zonia is well contr olled and a value great er than or equal to 7% indic ates subop timal contr ol. A1c targe ts shoul d be indiv idual ized based on durat ion of diabe zonia, age, comor bid condi tions , and other consi derat ions. Curre ntly, no conse nsus exist s anselmo velasquez use of hemog lobin A1c for diagn osis of diabe zonia for child fabiola. Not Available [facility] [address] [address], [place], [address], 03/27/2021 17:33:02 03/26/19 22 03/27/2021 TSH TSH 1.65 mIU/L 0.40-4 .50 normal Not Available [facility] [address] [address], [place], [address], 03/27/2021 17:33:01 03/26/19 22 03/27/2021 T4, FREE T4, free 1.2 NG/dL 0.8-1. 8 normal Not Available [address] [address] [place], [address], 03/27/2021 17:33:01 03/26/19 22 03/27/2021 ALBUM IN, RANDO M URINE W/CRE ATINI NE creatinine, random urine 14 mg/dL 20-320 low Not Available [address] [address] [place], [address], 03/27/2021 17:33:00 03/26/19 22 03/27/2021 ALBUM IN, RANDO M URINE W/CRE ATINI NE albumin, urine 32.0 mg/dL see note: normal Refer ence Range : Refer ence Range Not estab lishe d Not Available [address] [address] [facility] [place], [address], 03/27/2021 17:33:00 03/26/19 22 03/27/2021 ALBUM IN, RANDO M URINE W/CRE ATINI NE albumin/crea tinine ratio, random urine 2286 mcg/m g_cre at <30 high The ADA defin es abnor malit ies in album in excre tion as follo ws: Album inuri a Categ ory Resul t (mcg/ mg creat inine ) Johanny l to Mildl y incre ased <30 Moder ately incre ased 30-29 9 Sever alecia incre ased > OR = 300 The ADA recom mends that at least two of three speci mens colle cted withi n a 3-6 month perio d be abnor mal befor e consi dallas g a patie nt to be withi n a diagn ostic categ ory. Not Available [address] [address] [place], [address], 03/27/2021 17:33:00 03/26/19 22 03/27/2021 COMPR EHENS FREDO METAB OLIC PANEL glucose 130 mg/dL 65-99 high Fasti ng refer ence inter flaco For someo ne witho ut known diabe zonia, a gluco se value >125 mg/dL indic ates that they may have diabe zonia and this shoul d be confi rmed with a follo w-up test. Not Available [address] [place], [address], 03/27/2021 17:33:00 03/26/19 22 03/27/2021 COMPR EHENS FREDO METAB OLIC PANEL eGFR 66 mL/mi n/1.7 3m2 > or = 60 normal Not Available [address], [address], 03/27/2021 17:33:00 03/26/19 22 03/27/2021 COMPR EHENS FREDO METAB OLIC PANEL urea nitrogen (BUN) 22 mg/dL 7-25 normal Not Available [address] [place], [address], 03/27/2021 17:33:00 03/26/19 22 03/27/2021 COMPR EHENS FREDO METAB OLIC PANEL creatinine 1.27 mg/dL 0.70-1 .18 high For patie nts >49 years of age, the refer ence limit for Creat inine is appro ximat alecia 13% highe r for peopl e ident ified as Afric an-Am shonda n. Not Available [address] [address] , [place], [address], 03/27/2021 17:33:00 03/26/19 22 03/27/2021 COMPR EHENS FREDO METAB OLIC PANEL eGFR non-afr. greek 57 mL/mi n/1.7 3m2 > or = 60 low Not Available [address] [address] [place], [address], 03/27/2021 17:33:00 03/26/19 22 03/27/2021 COMPR EHENS FREDO METAB OLIC PANEL BUN/creatini ne ratio 17 (calc ) 6-22 normal Not Available [address], [address], 03/27/2021 17:33:00 03/26/19 22 03/27/2021 COMPR EHENS FREDO METAB OLIC PANEL sodium 141 mmol/ L 135-14 6 normal Not Available [address], [address], 03/27/2021 17:33:00 03/26/19 22 03/27/2021 COMPR EHENS FREDO METAB OLIC PANEL potassium 4.2 mmol/ L 3.5-5. 3 normal Not Available [address], [address], 03/27/2021 17:33:00 03/26/19 22 03/27/2021 COMPR EHENS FREDO METAB OLIC PANEL chloride 105 mmol/ L 98-110 normal Not Available [address], [address], 03/27/2021 17:33:00 03/26/19 22 03/27/2021 COMPR EHENS FREDO METAB OLIC PANEL carbon dioxide 26 mmol/ L 20-32 normal Not Available [address], [address], 03/27/2021 17:33:00 03/26/19 22 03/27/2021 COMPR EHENS FREDO METAB OLIC PANEL calcium 9.4 mg/dL 8.6-10 .3 normal Not Available [address], [address], 03/27/2021 17:33:00 03/26/19 22 03/27/2021 COMPR EHENS FREDO METAB OLIC PANEL protein, total 7.1 g/dL 6.1-8. 1 normal Not Available [address], [address], 03/27/2021 17:33:00 03/26/19 22 03/27/2021 COMPR EHENS FREDO METAB OLIC PANEL albumin 4.3 g/dL 3.6-5. 1 normal Not Available [address], [address], 03/27/2021 17:33:00 03/26/19 22 03/27/2021 COMPR EHENS FREDO METAB OLIC PANEL globulin 2.8 g/dL_ (calc ) 1.9-3. 7 normal Not Available [address], [address], 03/27/2021 17:33:00 03/26/19 22 03/27/2021 COMPR EHENS FREDO METAB OLIC PANEL albumin/glob ulin ratio 1.5 (calc ) 1.0-2. 5 normal Not Available [address], [address], 03/27/2021 17:33:00 03/26/19 22 03/27/2021 COMPR EHENS FREDO METAB OLIC PANEL bilirubin, total 0.6 mg/dL 0.2-1. 2 normal Not Available [address], [address], 03/27/2021 17:33:00 03/26/19 22 03/27/2021 COMPR EHENS FREDO METAB OLIC PANEL alkaline phosphatase 87 U/L 35-144 normal Not Available [address], [address], 03/27/2021 17:33:00 03/26/19 22 03/27/2021 COMPR EHENS FREDO METAB OLIC PANEL AST 19 U/L 10-35 normal Not Available [address], [address], 03/27/2021 17:33:00 03/26/19 22 03/27/2021 COMPR EHENS FREDO METAB OLIC PANEL ALT 25 U/L 9-46 normal Not Available [facility] [address] [address] [place], [address], 03/27/2021 17:33:00 03/26/19 22 03/27/2021 LIPID PANEL , STAND KHLOE LDL-choleste rol 108 mg/dL _(khushi c) high Refer ence range : <100 Mayco able range <100 mg/dL for prima ry preve ntion ; <70 mg/dL for patie nts with CHD or diabe tic patie nts with > or = 2 CHD risk facto rs. LDL-C is now calcu lated using the Anabel n-Hop kins calcu dilan n, which is a valid ated novel jorgeo d florinda velasquez zofia r accur acy than the Fried maik equat ion in the estim ation of LDL-C . Anabel turner SS et al. SURI. 2013; 310(1 9): 2061- 2068 (http ://ed ucati on.Qu Rj AdmitSee. com/f aq/FA Q164) Not Available [facility] [address] [address] [place], [address], 03/27/2021 17:32:59 03/26/19 22 03/27/2021 LIPID PANEL , STAND KHLOE cholesterol, total 188 mg/dL <200 normal Not Available [address] [address] [place], [address], 03/27/2021 17:32:59 03/26/19 22 03/27/2021 LIPID PANEL , STAND KHLOE HDL cholesterol 58 mg/dL > or = 40 normal Not Available [facility] [address] [address] [place], [address], 03/27/2021 17:32:59 03/26/19 22 03/27/2021 LIPID PANEL , STAND KHLOE triglyceride s 108 mg/dL <150 normal Not Available [facility] [address] [address] [place], [address], 03/27/2021 17:32:59 03/26/19 22 03/27/2021 LIPID PANEL , STAND KHLOE chol/HDLC ratio 3.2 (calc ) <5.0 normal Not Available [facility] [address] [place], [address], 03/27/2021 17:32:59 03/26/19 22 03/27/2021 LIPID PANEL , STAND KHLOE non HDL cholesterol 130 mg/dL _(khushi c) <130 high For patie nts with diabe zonia plus 1 major ASCVD risk facto r, treat ing to a non-H DL-C goal of <100 mg/dL (LDL- C of <70 mg/dL ) is consi elena marino optio n. Not Available [facility] [address] [address], [place], [address], 03/27/2021 17:32:59 07/12/19 22 07/12/2021 HEMOG LOBIN A1C hemoglobin A1C 8.6 %_of_ total _HGB <5.7 high For someo ne witho ut known diabe zonia, a hemog lobin A1c value of 6.5% or great er indic ates that they may have diabe zonia and this shoul d be confi rmed with a follo w-up test. For someo ne with known diabe zonia, a value <7% indic ates that their diabe zonia is well contr olled and a value great er than or equal to 7% indic ates subop timal contr ol. A1c targe ts shoul d be indiv idual ized based on durat ion of diabe zonia, age, comor bid condi tions , and other consi derat ions. Curre ntly, no conse nsus exist s regar ding use of hemog lobin A1c for diagn osis of diabe zonia for child fabiola. Not Available [facility] [address] [address], [place], [address], 07/12/2021 17:45:58 07/12/19 22 07/12/2021 TSH TSH 2.26 mIU/L 0.40-4 .50 normal Not Available [address] [address] [place], [address], 07/12/2021 17:45:58 07/12/19 22 07/12/2021 T4, FREE T4, free 1.3 NG/dL 0.8-1. 8 normal Not Available [address], [address], 07/12/2021 17:45:57 07/12/19 22 07/12/2021 ALBUM IN, RANDO M URINE W/CRE ATINI NE creatinine, random urine 70 mg/dL 20-320 normal Not Available [address], [address], 07/12/2021 17:45:57 07/12/19 22 07/12/2021 ALBUM IN, RANDO M URINE W/CRE ATINI NE albumin, urine 87.1 mg/dL see note: normal Refer ence Range : Refer ence Range Not estab lishe d Verif ied by repea t mary ellen sis. Not Available [address], [address], 07/12/2021 17:45:57 07/12/19 22 07/12/2021 ALBUM IN, RANDO M URINE W/CRE ATINI NE albumin/crea tinine ratio, random urine 1244 mcg/m g_cre at <30 high The ADA defin es abnor malit ies in album in excre tion as follo ws: Album inuri a Categ ory Resul t (mcg/ mg creat inine ) Johanny l to Mildl y incre ased <30 Moder ately incre ased 30-29 9 Sever alecia incre ased > OR = 300 The ADA recom mends that at least two of three speci mens colle cted withi n a 3-6 month perio d be abnor mal befor e consi dallas g a patie nt to be withi n a diagn ostic categ ory. Not Available [address], [address], 07/12/2021 17:45:57 07/12/19 22 07/12/2021 COMPR EHENS FREDO METAB OLIC PANEL eGFR 53 mL/mi n/1.7 3m2 > or = 60 low Not Available [address], [address], 07/12/2021 17:45:56 07/12/19 22 07/12/2021 COMPR EHENS FREDO METAB OLIC PANEL glucose 115 mg/dL 65-99 high Fasti ng refer ence inter flaco For someo ne witho ut known diabe zonia, a gluco se value betwe en 100 and 125 mg/dL is consi stent with predi abete s and shoul d be confi rmed with a follo w-up test. Not Available [address], [address], 07/12/2021 17:45:56 07/12/19 22 07/12/2021 COMPR EHENS FREDO METAB OLIC PANEL urea nitrogen (BUN) 32 mg/dL 7-25 high Not Available [address], [address], 07/12/2021 17:45:56 07/12/19 22 07/12/2021 COMPR EHENS FREDO METAB OLIC PANEL creatinine 1.51 mg/dL 0.70-1 .18 high For patie nts >49 years of age, the refer ence limit for Creat inine is appro ximat alecia 13% highe r for peopl e ident ified as Afric an-Am shonda n. Not Available [address], [address], 07/12/2021 17:45:56 07/12/19 22 07/12/2021 COMPR EHENS FREDO METAB OLIC PANEL eGFR non-afr. greek 46 mL/mi n/1.7 3m2 > or = 60 low Not Available [address] [place], [address], 07/12/2021 17:45:56 07/12/19 22 07/12/2021 COMPR EHENS FREDO METAB OLIC PANEL BUN/creatini ne ratio 21 (calc ) 6-22 normal Not Available [address], [address], 07/12/2021 17:45:56 07/12/19 22 07/12/2021 COMPR EHENS FREDO METAB OLIC PANEL carbon dioxide 29 mmol/ L 20-32 normal Not Available [address], [address], 07/12/2021 17:45:56 07/12/19 22 07/12/2021 COMPR EHENS FREDO METAB OLIC PANEL sodium 144 mmol/ L 135-14 6 normal Not Available [address], [address], 07/12/2021 17:45:56 07/12/19 22 07/12/2021 COMPR EHENS FREDO METAB OLIC PANEL potassium 4.2 mmol/ L 3.5-5. 3 normal Not Available [address], [address], 07/12/2021 17:45:56 07/12/19 22 07/12/2021 COMPR EHENS FREDO METAB OLIC PANEL chloride 106 mmol/ L 98-110 normal Not Available [address], [address], 07/12/2021 17:45:56 07/12/19 22 07/12/2021 COMPR EHENS FREDO METAB OLIC PANEL calcium 9.5 mg/dL 8.6-10 .3 normal Not Available [address], [address], 07/12/2021 17:45:56 07/12/19 22 07/12/2021 COMPR EHENS FREDO METAB OLIC PANEL protein, total 7.0 g/dL 6.1-8. 1 normal Not Available [address], [address], 07/12/2021 17:45:56 07/12/19 22 07/12/2021 COMPR EHENS FREDO METAB OLIC PANEL albumin 4.2 g/dL 3.6-5. 1 normal Not Available [address], [address], 07/12/2021 17:45:56 07/12/19 22 07/12/2021 COMPR EHENS FREDO METAB OLIC PANEL globulin 2.8 g/dL_ (calc ) 1.9-3. 7 normal Not Available [address], [address], 07/12/2021 17:45:56 07/12/19 22 07/12/2021 COMPR EHENS FREDO METAB OLIC PANEL albumin/glob ulin ratio 1.5 (calc ) 1.0-2. 5 normal Not Available [address], [address], 07/12/2021 17:45:56 07/12/19 22 07/12/2021 COMPR EHENS FREDO METAB OLIC PANEL bilirubin, total 0.4 mg/dL 0.2-1. 2 normal Not Available [address], [address], 07/12/2021 17:45:56 07/12/19 22 07/12/2021 COMPR EHENS FREDO METAB OLIC PANEL alkaline phosphatase 97 U/L 35-144 normal Not Available [facility] [employer] [address], [address], 07/12/2021 17:45:56 07/12/19 22 07/12/2021 COMPR EHENS FREDO METAB OLIC PANEL AST 23 U/L 10-35 normal Not Available [address] [place], [address], 07/12/2021 17:45:56 07/12/19 22 07/12/2021 COMPR EHENS FREDO METAB OLIC PANEL ALT 26 U/L 9-46 normal Not Available [address] [address] [place], [address], 07/12/2021 17:45:56 07/12/19 22 07/12/2021 LIPID PANEL , STAND KHLOE chol/HDLC ratio 3.3 (calc ) <5.0 normal Not Available [address] [place], [address], 07/12/2021 17:45:55 07/12/19 22 07/12/2021 LIPID PANEL , STAND KHLOE non HDL cholesterol 99 mg/dL _(khushi c) <130 normal For patie nts with diabe zonia plus 1 major ASCVD risk facto r, treat ing to a non-H DL-C goal of <100 mg/dL (LDL- C of <70 mg/dL ) is consi wandad a dylan marino optio n. Not Available [address], [address], 07/12/2021 17:45:55 07/12/19 22 07/12/2021 LIPID PANEL , STAND KHLOE cholesterol, total 143 mg/dL <200 normal Not Available [address], [address], 07/12/2021 17:45:55 07/12/19 22 07/12/2021 LIPID PANEL , STAND KHLOE HDL cholesterol 44 mg/dL > or = 40 normal Not Available [address], [address], 07/12/2021 17:45:55 07/12/19 22 07/12/2021 LIPID PANEL , STAND KHLOE triglyceride s 123 mg/dL <150 normal Not Available [address], [address], 07/12/2021 17:45:55 07/12/1907/12/2021 LIPID PANEL , STAND KHLOE LDL-choleste rol 79 mg/dL _(khushi c) normal Refer ence range : <100 Mayco able range <100 mg/dL for prima ry preve ntion ; <70 mg/dL for patie nts with CHD or diabe tic patie nts with > or = 2 CHD risk facto rs. LDL-C is now calcu lated using the Anabel n-Hop kins calcu latsuzy n, which is a valid ated novel metho d danieli ding zofia r accur acy than the Fried maik equat ion in the estim ation of LDL-C . Anabel turner SS et al. SURI. 2013; 310(1 9): 2061- 2068 (http ://ed ucati on.[employer]. [employer]/f aq/FA Q164) Not Available [facility] [address] , [place], [address], 07/12/2021 17:45:55 10/23/19 22 10/23/2021 HEMOG LOBIN A1C hemoglobin A1C 8.6 %_of_ total _HGB <5.7 high For someo ne witho ut known diabe zonia, a hemog lobin A1c value of 6.5% or great er indic ates that they may have diabe zonia and this shoul d be confi rmed with a follo w-up test. For someo ne with known diabe zonia, a value <7% indic ates that their diabe zonia is well contr olled and a value great er than or equal to 7% indic ates subop timal contr ol. A1c targe ts shoul d be indiv idual ized based on durat ion of diabe zonia, age, comor bid condi tions , and other consi derat ions. Curre ntly, no conse nsus exist ugo velasquez use of hemog lobin A1c for diagn osis of diabe zonia for child afbiola. Not Available [facility] [address] [place], [address], 10/23/2021 17:39:23 10/23/19 22 10/23/2021 HEMOG LOBIN A1C copy(ies) sent to: [facility] HYPER TENSI ON [facility] [address] [facility] [address] [place] [address] Not Available [address] [address] [place], [address], 10/23/2021 17:39:23 10/23/19 22 10/23/2021 TSH TSH 1.68 mIU/L 0.40-4 .50 normal Not Available [address] [address] [place], [address], 10/23/2021 17:39:23 10/23/19 22 10/23/2021 TSH copy(ies) sent to: [facility] & HYPER TENSI ON AKIR[facility]CE [address] [facility] [address] [place] [address] Not Available [address] [address] [place], [address], 10/23/2021 17:39:23 10/23/19 22 10/23/2021 T4, FREE T4, free 1.3 NG/dL 0.8-1. 8 normal Not Available [address] [address] [place], [address], 10/23/2021 17:39:22 10/23/19 22 10/23/2021 T4, FREE copy(ies) sent to: [facility] HYPER TENSI ON [facility] [address] [facility] [address] [place] [address] Not Available [address] [address] [place], [address], 10/23/2021 17:39:22 10/23/19 22 10/23/2021 ALBUM IN, RANDO M URINE W/CRE ATINI NE creatinine, random urine 51 mg/dL 20-320 normal Not Available [facility] [address], [place], [address], 10/23/2021 17:39:22 10/23/19 22 10/23/2021 ALBUM IN, RANDO M URINE W/CRE ATINI NE albumin, urine 55.4 mg/dL see note: normal Refer ence Range : Refer ence Range Not estab lishe d Verif ied by repea t mary ellen sis. Not Available [address], [place], [address], 10/23/2021 17:39:22 10/23/19 22 10/23/2021 ALBUM IN, RANDO M URINE W/CRE ATINI NE albumin/crea tinine ratio, random urine 1086 mcg/m g_cre at <30 high The ADA defin es abnor malit ies in album in excre tion as follo ws: Album inuri a Categ ory Resul t (mcg/ mg creat inine ) Johanny l to Mildl y incre ased <30 Moder ately incre ased 30-29 9 Sever alecia incre ased > OR = 300 The ADA recom mends that at least two of three speci mens colle cted withi n a 3-6 month perio d be abnor mal befor e consi dallas g a patie nt to be withi n a diagn ostic categ ory. Not Available [facility] [address], [place], [address], 10/23/2021 17:39:22 10/23/19 22 10/23/2021 ALBUM IN, RANDO M URINE W/CRE ATINI NE copy(ies) sent to: [facility] & HYPER TENSI ON [facility] [address] [facility] [address] [place] [address] Not Available [facility] [address], [place], [address], 10/23/2021 17:39:22 10/23/19 22 10/23/2021 COMPR EHENS FREDO METAB OLIC PANEL glucose 147 mg/dL 65-99 high Fasti ng refer ence inter flaco For someo ne witho ut known diabe zonia, a gluco se value >125 mg/dL indic ates that they may have diabe zonia and this shoul d be confi rmed with a follo w-up test. Not Available [facility] [address] [address] [place], [address], 10/23/2021 17:39:21 10/23/19 22 10/23/2021 COMPR EHENS FREDO METAB OLIC PANEL urea nitrogen (BUN) 35 mg/dL 7-25 high Not Available [facility] [address] [address] [place], [address], 10/23/2021 17:39:21 10/23/19 22 10/23/2021 COMPR EHENS FREDO METAB OLIC PANEL creatinine 1.69 mg/dL 0.70-1 .28 high Not Available [address] [address] [place], [address], 10/23/2021 17:39:21 10/23/19 22 10/23/2021 COMPR EHENS FREDO METAB OLIC PANEL eGFR 43 mL/mi n/1.7 3m2 > or = 60 low The eGFR is based on the CKD-E PI 2020 equat ion. To calcu late the new eGFR from a previ ous Creat inine or Cysta tin C resul t, go to https ://hollie anaya.delia lobo/konrad bray s/ kdoqi /gfr% 5Fcal culat or Not Available [facility] [address] [address] [place], [address], 10/23/2021 17:39:21 10/23/19 22 10/23/2021 COMPR EHENS FREDO METAB OLIC PANEL BUN/creatini ne ratio 21 (calc ) 6-22 normal Not Available [facility] [address] [address] [place], [address], 10/23/2021 17:39:21 10/23/19 22 10/23/2021 COMPR EHENS FREDO METAB OLIC PANEL sodium 143 mmol/ L 135-14 6 normal Not Available [address], [address], 10/23/2021 17:39:21 10/23/19 22 10/23/2021 COMPR EHENS FREDO METAB OLIC PANEL potassium 3.9 mmol/ L 3.5-5. 3 normal Not Available [address], [address], 10/23/2021 17:39:21 10/23/19 22 10/23/2021 COMPR EHENS FREDO METAB OLIC PANEL chloride 103 mmol/ L 98-110 normal Not Available [address], [address], 10/23/2021 17:39:21 10/23/19 22 10/23/2021 COMPR EHENS FREDO METAB OLIC PANEL carbon dioxide 30 mmol/ L 20-32 normal Not Available [address], [address], 10/23/2021 17:39:21 10/23/19 22 10/23/2021 COMPR EHENS FREDO METAB OLIC PANEL calcium 9.2 mg/dL 8.6-10 .3 normal Not Available [address], [address], 10/23/2021 17:39:21 10/23/19 22 10/23/2021 COMPR EHENS FREDO METAB OLIC PANEL protein, total 7.2 g/dL 6.1-8. 1 normal Not Available [address], [address], 10/23/2021 17:39:21 10/23/19 22 10/23/2021 COMPR EHENS FREDO METAB OLIC PANEL albumin 4.2 g/dL 3.6-5. 1 normal Not Available [address], [address], 10/23/2021 17:39:21 10/23/19 22 10/23/2021 COMPR EHENS FREDO METAB OLIC PANEL globulin 3.0 g/dL_ (calc ) 1.9-3. 7 normal Not Available [address], [address], 10/23/2021 17:39:21 10/23/19 22 10/23/2021 COMPR EHENS FREDO METAB OLIC PANEL albumin/glob ulin ratio 1.4 (calc ) 1.0-2. 5 normal Not Available [address], [address], 10/23/2021 17:39:21 10/23/19 22 10/23/2021 COMPR EHENS FREDO METAB OLIC PANEL ALT 21 U/L 9-46 normal Not Available [address], [address], 10/23/2021 17:39:21 10/23/19 22 10/23/2021 COMPR EHENS FREDO METAB OLIC PANEL bilirubin, total 0.5 mg/dL 0.2-1. 2 normal Not Available [address], [address], 10/23/2021 17:39:21 10/23/19 22 10/23/2021 COMPR EHENS FREDO METAB OLIC PANEL alkaline phosphatase 91 U/L 35-144 normal Not Available [address] [address] [place], [address], 10/23/2021 17:39:21 10/23/19 22 10/23/2021 COMPR EHENS FREDO METAB OLIC PANEL AST 16 U/L 10-35 normal Not Available [address], [address], 10/23/2021 17:39:21 10/23/19 10/23/2021 COMPR EHENS FREDO METAB OLIC PANEL copy(ies) sent to: [facility] HYPER TENSI ON [facility] [address] [place] [address] Not Available [address], [address], 10/23/2021 17:39:21 10/23/19 22 10/23/2021 LIPID PANEL , STAND KHLOE LDL-choleste rol 77 mg/dL _(khushi c) normal Refer ence range : <100 Mayco able range <100 mg/dL for prima ry preve ntion ; <70 mg/dL for patie nts with CHD or diabe tic patie nts with > or = 2 CHD risk facto rs. LDL-C is now calcu lated using the Anabel n-Hop kins calcu latio n, which is a valid ated novel metho d provi ding zofia r accur acy than the Fried maik equat ion in the estim ation of LDL-C . Anabel turner SS et al. SURI. 2013; 310(1 9): 2061- 2068 (http ://ed ucati on.Qu estB&W [employer]. com/f aq/FA Q164) Not Available [address] [address] [place], [address], 10/23/2021 17:39:21 10/23/19 22 10/23/2021 LIPID PANEL , STAND KHLOE cholesterol, total 154 mg/dL <200 normal Not Available [facility] [address] [address] [place], [address], 10/23/2021 17:39:21 10/23/19 22 10/23/2021 LIPID PANEL , STAND KHLOE HDL cholesterol 56 mg/dL > or = 40 normal Not Available [address] [address] [place], [address], 10/23/2021 17:39:21 10/23/19 22 10/23/2021 LIPID PANEL , STAND KHLOE triglyceride s 124 mg/dL <150 normal Not Available [address] [address] [place], [address], 10/23/2021 17:39:21 10/23/19 22 10/23/2021 LIPID PANEL , STAND KHLOE chol/HDLC ratio 2.8 (calc ) <5.0 normal Not Available [address] [address] [place], [address], 10/23/2021 17:39:21 10/23/19 22 10/23/2021 LIPID PANEL , STAND KHLOE non HDL cholesterol 98 mg/dL _(khushi c) <130 normal For patie nts with diabe zonia plus 1 major ASCVD risk facto r, treat ing to a non-H DL-C goal of <100 mg/dL (LDL- C of <70 mg/dL ) is consi dered a thera peuti c optio n. Not Available [address] [place], [address], 10/23/2021 17:39:21 10/23/1910/23/2021 LIPID PANEL , STAND KHLOE copy(ies) sent to: [facility]LOGChristopher & [facility] [address] [facility] [address] [place] [address] Not Available [facility] [place] [address] [address] [place], [address], 10/23/2021 17:39:21 10/23/19 22 10/27/2021 VITAM IN D, 1,25 DIHYD SHIKHA vitamin D3, 1,25 (oh)2 29 pg/mL Not Available [facility] [place] [address] [address] [place], [address], 10/27/2021 14:34:23 10/23/19 22 10/27/2021 VITAM IN D, 1,25 DIHYD SHIKHA vitamin D, 1,25 (oh)2, total 29 pg/mL 18-72 Not Available [facility] [address] [place], [address], 10/27/2021 14:34:23 10/23/1910/27/2021 VITAM IN D, 1,25 DIHYD SHIKHA vitamin D2, 1,25 (oh)2 <8 pg/mL (Note ) Vitam in D3, 1,25( OH)2 indic ates both endog enous produ ction and suppl ement ation . Vitam in D2, 1,25( OH)2 is an indic ator of exoge nous sourc es, such as diet or suppl ement ation . Inter preta tion and thera py are based on measu remen t of Vitam in D, 1,25 (OH)2 , Total . This test was savannah hand, and its mary ellen tical perfo rmanc e sandra cteri stics have been deter mined by [facility]. It has not been clear ed or appro ollie by the FDA. This assay has been valid ated pursu ant to the CLIA regul ation s and is used for clini khushi purpo ses. For addit ional infor loe marin e refer to http: //[facility] catsuzy n.Que stDia gnost ics.c om/fa q/FAQ 199 (This link is being provi ded for infor cate nal/e ducat ional purpo ses only. ) MDF med fusio n [address] [facility] [address] [facility] [address] [phone] Jarred kessler MD See Note 1 Not Available [facility] [address], [place], [address], 10/27/2021 14:34:23 10/23/1910/27/2021 VITAM IN D, 1,25 DIHYD SHIKHA copy received from: NEPHR OLOGY & HYPER TENSI ON [facility] [address] [facility] [address] [place] [address] Not Available [facility] [address] [place], [address], 10/27/2021 14:34:23 10/23/19 22 10/27/2021 PTH, INTAC T WITHO UT CALCI UM parathyroid hormone, intact 92 pg/mL 16-77 high Inter preti ve Guide Intac t PTH Calci um ----- ----- ----- --- ----- ----- ----- -- Johanny l Parat hyroi d Johanny l Johanny l Hypop marilee yroid ism Low or Low Johanny l Low Hyper parat hyroi dism Prima ry Johanny l or High High Secon jordi High Johanny l or Low Terti aline High High Non-P marilee yroid Hyper calce law Low or Low Johanny l High Not Available [facility] [address] [place], [address], 10/27/2021 14:34:22 10/23/19 22 10/27/2021 PTH, INTAC T WITHO UT CALCI UM copy received from: NEPHR OLOGY & HYPER TENSI ON [facility] [address] [place] [address] Not Available [facility] [address] [address] [place], [address], 10/27/2021 14:34:22 10/23/19 22 10/27/2021 QUEST ASSUR ED 25-OH VIT D, (D2,D 3) copy received from: NEPHR OLOGY & HYPER TENSI ON [facility] [address] [facility] [address] [place] [address] Not Available [facility] [address] [address] [place], [address], 10/27/2021 13:44:14 10/23/1910/27/2021 QUEST ASSUR ED 25-OH VIT D, (D2,D 3) vitamin D, 25-oh, total 26 NG/mL 30-100 low (Note ) Vitam in D, 25-Hy droxy repor ts astrid ntrat ions of two commo n forms , 25-OH D2 and 25-OH D3. 25-OH D3 indic ates both endog enous produ ction and suppl ement ation . 25-OH D2 is an indic ator of exoge nous sourc es such as diet or suppl ement ation . Thera py is based on measu remen t of Total 25-OH D, with level s <20 ng/mL indic ative of Vitam in D defic iency , while level s betwe en 20 ng/mL and 30 ng/mL sugge st insuf ficie ncy. Optim al level s are > or = 30 ng/mL . Vitam in D is fat-s olubl e and there fore inadv erten t or inten rita l inges tion of exces sivel y high amoun ts could be toxic . Studi es in child fabiola and adult s sugge st blood level s would need to excee d 150 ng/mL befor e there is any astrid rn. Evelyne lynn MF, Devon simons [place], Echo off-f errar i LEDBETTER, et al. Evalu ation , treat ment and preve ntion of vitam in D defic iency : an Endoc rine Socie ty clini khushi pract ice guide line. J Clin Endoc rinol Metab . 2011; 96(7) :1911 -30. For addit ional infor ole marin e refer to http: //nuris turner.Aurelio stDia gnost ics.c om/fa q/FAQ 199 Not Available [facility] [address] [address] [place], [address], 10/27/2021 13:44:14 10/23/19 22 10/27/2021 QUEST ASSUR ED 25-OH VIT D, (D2,D 3) vitamin D, 25-oh, D3 26 NG/mL Refer ence range : Not estab lishe d Not Available [facility] [address] [place], [address], 10/27/2021 13:44:14 10/23/1910/27/2021 QUEST ASSUR ED 25-OH VIT D, (D2,D 3) vitamin D, 25-oh, D2 <4.0 NG/mL (Note ) Refer ence range : Not estab lishe d This test was devel yazan and its mary ellen tical perfo rmanc e sandra cteri stics have been deter mined by [facility]. It has not been clear ed or appro ollie by the [place] Food and Drug Admin istra tion. This assay has been valid ated pursu ant to the [place] [facility] ation and is used for Clini khushi purpo ses. F med yany n [address] [facility] [address] [place] [address] [phone] Jarred kessler MD See Note 1 Note 1 For addit ional infor ole marin e refer to http: //[facility] luzmaria turner.Aurelio stDia gnost ics.c om/fa q/FAQ 199 (This link is being provi ded for infor cate reyes/ educrudolph rita l purpo ses only. ) Not Available [facility] [address], [address], 10/27/2021 13:44:14 10/23/19 22 10/23/2021 PROTE IN, TOTAL W/CRE AT, RANDO M URINE protein, total, random ur 97 mg/dL 5-25 high Not Available [address], [address], 10/23/2021 17:48:18 10/23/19 22 10/23/2021 PROTE IN, TOTAL W/CRE AT, RANDO M URINE creatinine, random urine 52 mg/dL 20-320 normal Not Available [address] [address] [place], [address], 10/23/2021 17:48:18 10/23/19 22 10/23/2021 PROTE IN, TOTAL W/CRE AT, RANDO M URINE protein/crea tinine ratio 1865 mg/g_ creat 25-148 high Not Available [address], [address], 10/23/2021 17:48:18 10/23/19 22 10/23/2021 PROTE IN, TOTAL W/CRE AT, RANDO M URINE protein/crea tinine ratio 1.865 mg/mg _crea t 0.025- 0.148 high Not Available [address], [address], 10/23/2021 17:48:18 10/23/19 22 10/23/2021 PROTE IN, TOTAL W/CRE AT, RANDO M URINE copy received from: NEPHR OLOGY & HYPER TENSI ON [facility] [address] [facility] [address] [place] [address] Not Available [facility] [address], [address], 10/23/2021 17:48:18 10/23/19 22 10/23/2021 RENAL FUNCT ION PANEL BUN/creatini ne ratio 20 (calc ) 6-22 normal Not Available [address], [address], 10/23/2021 06:48:58 10/23/19 22 10/23/2021 RENAL FUNCT ION PANEL glucose 144 mg/dL 65-99 high Fasti ng refer ence inter flaco For someo ne witho ut known diabe zonia, a gluco se value >125 mg/dL indic ates that they may have diabe zonia and this shoul d be confi rmed with a follo w-up test. Not Available [facility] [address], [address], 10/23/2021 06:48:58 10/23/19 22 10/23/2021 RENAL FUNCT ION PANEL urea nitrogen (BUN) 35 mg/dL 7-25 high Not Available [facility] [address], [address], 10/23/2021 06:48:58 10/23/19 22 10/23/2021 RENAL FUNCT ION PANEL creatinine 1.79 mg/dL 0.70-1 .28 high Not Available [facility] [address] [place], [address], 10/23/2021 06:48:58 10/23/19 22 10/23/2021 RENAL FUNCT ION PANEL eGFR 40 mL/mi n/1.7 3m2 > or = 60 low The eGFR is based on the CKD-E PI 2020 equat ion. To calcu late the new eGFR from a previ ous Creat inine or Cysta tin C resul t, go to https ://hollie snell.renetta anaya.o lashell/konrad bray s/ kdoqi /gfr% 5Fcal culat or Not Available [address], [address], 10/23/2021 06:48:58 10/23/19 22 10/23/2021 RENAL FUNCT ION PANEL sodium 144 mmol/ L 135-14 6 normal Not Available [address] [address] [place], [address], 10/23/2021 06:48:58 10/23/19 22 10/23/2021 RENAL FUNCT ION PANEL potassium 3.7 mmol/ L 3.5-5. 3 normal Not Available [address], [address], 10/23/2021 06:48:58 10/23/19 22 10/23/2021 RENAL FUNCT ION PANEL chloride 104 mmol/ L 98-110 normal Not Available [address], [address], 10/23/2021 06:48:58 10/23/19 22 10/23/2021 RENAL FUNCT ION PANEL carbon dioxide 30 mmol/ L 20-32 normal Not Available [address], [address], 10/23/2021 06:48:58 10/23/19 22 10/23/2021 RENAL FUNCT ION PANEL calcium 9.2 mg/dL 8.6-10 .3 normal Not Available [address], [address], 10/23/2021 06:48:58 10/23/1910/23/2021 RENAL FUNCT ION PANEL phosphate ( phosphorus) 3.9 mg/dL 2.1-4. 3 normal Not Available [address], [address], 10/23/2021 06:48:58 10/23/19 22 10/23/2021 RENAL FUNCT ION PANEL albumin 4.2 g/dL 3.6-5. 1 normal Not Available [address], [address], 10/23/2021 06:48:58 10/23/1910/23/2021 RENAL FUNCT ION PANEL copy received from: NEPHR OLOGY & HYPER TENSI ON [facility] [address] [facility] [address] [place] [address] Not Available [address], [address], 10/23/2021 06:48:58 10/23/1910/23/2021 CBC (INCL UDES DIFF/ PLT) white blood cell count 8.0 thous and/u L 3.8-10 .8 normal Not Available [address], [address], 10/23/2021 06:02:41 10/23/19 22 10/23/2021 CBC (INCL UDES DIFF/ PLT) red blood cell count 4.30 armando on/uL 4.20-5 .80 normal Not Available [address], [address], 10/23/2021 06:02:41 10/23/19 22 10/23/2021 CBC (INCL UDES DIFF/ PLT) hemoglobin 12.9 g/dL 13.2-1 7.1 low Not Available [address] [place], [address], 10/23/2021 06:02:41 10/23/19 22 10/23/2021 CBC (INCL UDES DIFF/ PLT) hematocrit 39.0 % 38.5-5 0.0 normal Not Available [address], [address], 10/23/2021 06:02:41 10/23/19 22 10/23/2021 CBC (INCL UDES DIFF/ PLT) MCV 90.7 fL 80.0-1 00.0 normal Not Available [facility] [address], [address], 10/23/2021 06:02:41 10/23/1910/23/2021 CBC (INCL UDES DIFF/ PLT) MCH 30.0 pg 27.0-3 3.0 normal Not Available [address], [address], 10/23/2021 06:02:41 10/23/19 22 10/23/2021 CBC (INCL UDES DIFF/ PLT) MPV 12.8 fL 7.5-12 .5 high Not Available [address], [address], 10/23/2021 06:02:41 10/23/19 22 10/23/2021 CBC (INCL UDES DIFF/ PLT) MCHC 33.1 g/dL 32.0-3 6.0 normal Not Available [address], [address], 10/23/2021 06:02:41 10/23/1910/23/2021 CBC (INCL UDES DIFF/ PLT) RDW 13.5 % 11.0-1 5.0 normal Not Available [facility] [address], [address], 10/23/2021 06:02:41 10/23/19 22 10/23/2021 CBC (INCL UDES DIFF/ PLT) platelet count 247 thous and/u L 140-40 0 normal Not Available [address], [address], 10/23/2021 06:02:41 10/23/19 22 10/23/2021 CBC (INCL UDES DIFF/ PLT) absolute neutrophils 5624 cells /uL 1500-7 800 normal Not Available [address], [address], 10/23/2021 06:02:41 10/23/19 22 10/23/2021 CBC (INCL UDES DIFF/ PLT) absolute lymphocytes 1640 cells /uL 850-39 00 normal Not Available [address], [address], 10/23/2021 06:02:41 10/23/19 22 10/23/2021 CBC (INCL UDES DIFF/ PLT) absolute monocytes 544 cells /uL 200-95 0 normal Not Available [address], [address], 10/23/2021 06:02:41 10/23/19 22 10/23/2021 CBC (INCL UDES DIFF/ PLT) absolute eosinophils 152 cells /uL 15-500 normal Not Available [address], [address], 10/23/2021 06:02:41 10/23/19 22 10/23/2021 CBC (INCL UDES DIFF/ PLT) absolute basophils 40 cells /uL 0-200 normal Not Available [facility] [address], [address], 10/23/2021 06:02:41 10/23/19 22 10/23/2021 CBC (INCL UDES DIFF/ PLT) neutrophils 70.3 % normal Not Available [address], [address], 10/23/2021 06:02:41 10/23/19 22 10/23/2021 CBC (INCL UDES DIFF/ PLT) lymphocytes 20.5 % normal Not Available [address], [address], 10/23/2021 06:02:41 10/23/19 22 10/23/2021 CBC (INCL UDES DIFF/ PLT) monocytes 6.8 % normal Not Available [address], [address], 10/23/2021 06:02:41 10/23/19 22 10/23/2021 CBC (INCL UDES DIFF/ PLT) eosinophils 1.9 % normal Not Available [address], [address], 10/23/2021 06:02:41 10/23/19 22 10/23/2021 CBC (INCL UDES DIFF/ PLT) basophils 0.5 % normal Not Available [address], [address], 10/23/2021 06:02:41 10/23/19 22 10/23/2021 CBC (INCL UDES DIFF/ PLT) copy received from: NEPHR OLOGY & HYPER TENSI ON [facility] [address] [facility] [address] [place] [address] Not Available [address], [address], 10/23/2021 06:02:41 10/23/19 22 10/23/2021 RENAL FUNCT ION PANEL eGFR Not Available [address], [address], 10/23/2021 06:02:40 10/23/19 22 10/23/2021 RENAL FUNCT ION PANEL glucose Not Available [address], [address], 10/23/2021 06:02:40 10/23/19 22 10/23/2021 RENAL FUNCT ION PANEL urea nitrogen (BUN) Not Available [address] [place] [address] [place], [address], 10/23/2021 06:02:40 10/23/19 22 10/23/2021 RENAL FUNCT ION PANEL creatinine Not Available [address] [address] [place], [address], 10/23/2021 06:02:40 10/23/19 22 10/23/2021 RENAL FUNCT ION PANEL BUN/creatini ne ratio Not Available [address] [address] [place], [address], 10/23/2021 06:02:40 10/23/19 22 10/23/2021 RENAL FUNCT ION PANEL sodium Not Available [address] [address] [place], [address], 10/23/2021 06:02:40 10/23/19 22 10/23/2021 RENAL FUNCT ION PANEL potassium Not Available [address] [address] [place], [address], 10/23/2021 06:02:40 10/23/19 22 10/23/2021 RENAL FUNCT ION PANEL chloride Not Available [address] [address] [place], [address], 10/23/2021 06:02:40 10/23/19 22 10/23/2021 RENAL FUNCT ION PANEL carbon dioxide Not Available [address] [address] [place], [address], 10/23/2021 06:02:40 10/23/19 22 10/23/2021 RENAL FUNCT ION PANEL calcium Not Available [address] [place] [address] [place], [address], 10/23/2021 06:02:40 10/23/19 22 10/23/2021 RENAL FUNCT ION PANEL phosphate ( phosphorus) Not Available [facility] [address] [place], [address], 10/23/2021 06:02:40 10/23/19 22 10/23/2021 RENAL FUNCT ION PANEL albumin Not Available [facility] [address] [place], [address], 10/23/2021 06:02:40 10/23/19 22 10/23/2021 RENAL FUNCT ION PANEL copy received from: NEPHR OLOGY & HYPER TENSI ON AKIR[facility] [address] [facility] [facility] [address] [place] [address] 1223 Not Available [facility] [address] [address], [place], [address], 10/23/2021 06:02:40 02/12/19 23 02/13/2022 HEMOG LOBIN A1C hemoglobin A1C 8.8 %_of_ total _HGB <5.7 high For someo ne witho ut known diabe zonia, a hemog lobin A1c value of 6.5% or great er indic ates that they may have diabe zonia and this shoul d be confi rmed with a follo w-up test. For someo ne with known diabe zonia, a value <7% indic ates that their diabe zonia is well contr olled and a value great er than or equal to 7% indic ates subop timal contr ol. A1c targe ts shoul d be indiv idual ized based on durat ion of diabe zonia, age, comor bid condi tions , and other consi derat ions. Curre ntly, no conse nsus exist s anselmo velasquez use of hemog lobin A1c for diagn osis of diabe zonia for child fabiola. Not Available [facility] [address] [address], [place], [address], 02/14/2022 00:24:18 02/12/1902/13/2022 TSH+F REE T4 TSH 1.31 mIU/L 0.40-4 .50 normal Not Available [address] [address] [place], [address], 02/14/2022 00:24:17 02/12/1902/13/2022 TSH+F REE T4 T4, free 1.2 NG/dL 0.8-1. 8 normal Not Available [address] [address] [place], [address], 02/14/2022 00:24:17 02/12/1902/13/2022 ALBUM IN, RANDO M URINE W/CRE ATINI NE creatinine, random urine 106 mg/dL 20-320 normal Not Available [address] [address] [place], [address], 02/14/2022 00:24:17 02/12/1902/13/2022 ALBUM IN, RANDO M URINE W/CRE ATINI NE albumin, urine 196.3 mg/dL see note: normal Refer ence Range : Refer ence Range Not estab lishe d Verif ied by repea t mary ellen sis. Not Available [address], [address], 02/14/2022 00:24:17 02/12/1902/13/2022 ALBUM IN, RANDO M URINE W/CRE ATINI NE albumin/crea tinine ratio, random urine 1852 mcg/m g_cre at <30 high The ADA defin es abnor malit ies in album in excre tion as follo ws: Album inuri a Categ ory Resul t (mcg/ mg creat inine ) Johanny l to Mildl y incre ased <30 Moder ately incre ased 30-29 9 Sever alecia incre ased > OR = 300 The ADA recom mends that at least two of three speci mens colle cted withi n a 3-6 month perio d be abnor mal befor e consi dallas g a patie nt to be withi n a diagn ostic categ ory. Not Available [facility] [address], [address], 02/14/2022 00:24:17 02/12/1902/13/2022 COMPR EHENS FREDO METAB OLIC PANEL glucose 127 mg/dL 65-99 high Fasti ng refer ence inter flaco For someo ne witho ut known diabe zonia, a gluco se value >125 mg/dL indic ates that they may have diabe zonia and this shoul d be confi rmed with a follo w-up test. Not Available [address], [address], 02/14/2022 00:24:16 02/12/1902/13/2022 COMPR EHENS FREDO METAB OLIC PANEL urea nitrogen (BUN) 24 mg/dL 7-25 normal Not Available [address], [address], 02/14/2022 00:24:16 02/12/1902/13/2022 COMPR EHENS FREDO METAB OLIC PANEL creatinine 1.33 mg/dL 0.70-1 .28 high Not Available [facility] [address], [address], 02/14/2022 00:24:16 02/12/1902/13/2022 COMPR EHENS FREDO METAB OLIC PANEL eGFR 57 mL/mi n/1.7 3m2 > or = 60 low The eGFR is based on the CKD-E PI 2020 equat ion. To calcu late the new eGFR from a previ ous Creat inine or Cysta tin C resul t, go to https ://hollie anaya.delia lobo/konrad arizmendi/ kdoqi /gfr% 5Fcal culat or Not Available [facility] [address], [address], 02/14/2022 00:24:16 02/12/19 23 02/13/2022 COMPR EHENS FREDO METAB OLIC PANEL BUN/creatini ne ratio 18 (calc ) 6-22 normal Not Available [address], [address], 02/14/2022 00:24:16 02/12/19 23 02/13/2022 COMPR EHENS FREDO METAB OLIC PANEL sodium 141 mmol/ L 135-14 6 normal Not Available [address], [address], 02/14/2022 00:24:16 02/12/19 23 02/13/2022 COMPR EHENS FREDO METAB OLIC PANEL potassium 4.4 mmol/ L 3.5-5. 3 normal Not Available [address], [address], 02/14/2022 00:24:16 02/12/1902/13/2022 COMPR EHENS FREDO METAB OLIC PANEL chloride 106 mmol/ L 98-110 normal Not Available [address], [address], 02/14/2022 00:24:16 02/12/19 23 02/13/2022 COMPR EHENS FREDO METAB OLIC PANEL carbon dioxide 29 mmol/ L 20-32 normal Not Available [address], [address], 02/14/2022 00:24:16 02/12/1902/13/2022 COMPR EHENS FREDO METAB OLIC PANEL calcium 9.3 mg/dL 8.6-10 .3 normal Not Available [address], [address], 02/14/2022 00:24:16 02/12/1902/13/2022 COMPR EHENS FREDO METAB OLIC PANEL protein, total 6.9 g/dL 6.1-8. 1 normal Not Available [address], [address], 02/14/2022 00:24:16 02/12/19 23 02/13/2022 COMPR EHENS FREDO METAB OLIC PANEL albumin 4.1 g/dL 3.6-5. 1 normal Not Available [address], [address], 02/14/2022 00:24:16 02/12/19 23 02/13/2022 COMPR EHENS FREDO METAB OLIC PANEL globulin 2.8 g/dL_ (calc ) 1.9-3. 7 normal Not Available [address], [address], 02/14/2022 00:24:16 02/12/1902/13/2022 COMPR EHENS FREDO METAB OLIC PANEL albumin/glob ulin ratio 1.5 (calc ) 1.0-2. 5 normal Not Available [address], [address], 02/14/2022 00:24:16 02/12/1902/13/2022 COMPR EHENS FREDO METAB OLIC PANEL bilirubin, total 0.4 mg/dL 0.2-1. 2 normal Not Available [address], [address], 02/14/2022 00:24:16 02/12/1902/13/2022 COMPR EHENS FREDO METAB OLIC PANEL alkaline phosphatase 87 U/L 35-144 normal Not Available [facility] [address], [address], 02/14/2022 00:24:16 02/12/19 23 02/13/2022 COMPR EHENS FREDO METAB OLIC PANEL AST 20 U/L 10-35 normal Not Available [address], [address], 02/14/2022 00:24:16 02/12/19 23 02/13/2022 COMPR EHENS FREDO METAB OLIC PANEL ALT 22 U/L 9-46 normal Not Available [address] [address] [place], [address], 02/14/2022 00:24:16 02/12/1902/13/2022 LIPID PANEL , STAND KHLOE chol/HDLC ratio 2.8 (calc ) <5.0 normal Not Available [address], [address], 02/14/2022 00:24:16 02/12/19 23 02/13/2022 LIPID PANEL , STAND KHLOE cholesterol, total 160 mg/dL <200 normal Not Available [address], [address], 02/14/2022 00:24:16 02/12/1902/13/2022 LIPID PANEL , STAND KHLOE HDL cholesterol 57 mg/dL > or = 40 normal Not Available [address], [address], 02/14/2022 00:24:16 02/12/1902/13/2022 LIPID PANEL , STAND KHLOE triglyceride s 99 mg/dL <150 normal Not Available [address], [address], 02/14/2022 00:24:16 02/12/1902/13/2022 LIPID PANEL , STAND KHLOE LDL-choleste rol 84 mg/dL _(khushi c) normal Refer ence range : <100 Mayco able range <100 mg/dL for prima ry preve ntion ; <70 mg/dL for patie nts with CHD or diabe tic patie nts with > or = 2 CHD risk facto rs. LDL-C is now calcu lated using the Anabel n-Hop kins calcu dilan n, which is a valid ated novel metho d florinda armijo r accur acy than the Fried maik equat ion in the estim ation of LDL-C . Anabel turner SS et al. SURI. 2013; 310(1 5): 2061- 2068 (http ://ed ucati on.Guerda lorenzana [employer]. com/f aq/FA Q164) Not Available [address], [address], 02/14/2022 00:24:16 02/12/19 23 02/13/2022 LIPID PANEL , STAND KHLOE non HDL cholesterol 103 mg/dL _(khushi c) <130 normal For patie nts with diabe zonia plus 1 major ASCVD risk facto r, treat ing to a non-H DL-C goal of <100 mg/dL (LDL- C of <70 mg/dL ) is consi dered a thera peuti c optio n. Not Available [address], [address], 02/14/2022 00:24:16 05/31/1905/31/2022 COMPR EHENS FREDO METAB OLIC PANEL glucose 289 mg/dL 65-99 high Fasti ng refer ence inter flaco For someo ne witho ut known diabe zonia, a gluco se value >125 mg/dL indic ates that they may have diabe zonia and this shoul d be confi rmed with a follo w-up test. Not Available [address], [address], 05/31/2022 14:06:45 05/31/1905/31/2022 COMPR EHENS FREDO METAB OLIC PANEL urea nitrogen (BUN) 34 mg/dL 7-25 high Not Available [employer] [address], [address], 05/31/2022 14:06:45 05/31/1905/31/2022 COMPR EHENS FREDO METAB OLIC PANEL creatinine 1.43 mg/dL 0.70-1 .28 high Not Available [facility] [address], [address], 05/31/2022 14:06:45 04/22/05/31/2022 COMPR EHENS FREDO METAB OLIC PANEL eGFR 52 mL/mi n/1.7 3m2 > or = 60 low The eGFR is based on the CKD-E PI 2020 equat ion. To calcu late the new eGFR from a previ ous Creat inine or Cysta tin C resul t, go to https ://hollie anaya.delia lobo/pr ofess ional s/ kdoqi /gfr% 5Fcal culat or Not Available [address] [address] [place], [address], 05/31/2022 14:06:45 05/31/19 23 05/31/2022 COMPR EHENS FREDO METAB OLIC PANEL BUN/creatini ne ratio 24 (calc ) 6-22 high Not Available [address], [address], 05/31/2022 14:06:45 05/31/19 23 05/31/2022 COMPR EHENS FERDO METAB OLIC PANEL sodium 139 mmol/ L 135-14 6 normal Not Available [address], [address], 05/31/2022 14:06:45 05/31/19 23 05/31/2022 COMPR EHENS FREDO METAB OLIC PANEL potassium 4.6 mmol/ L 3.5-5. 3 normal Not Available [employer] [place] [address] [address] [place], [address], 05/31/2022 14:06:45 05/31/1905/31/2022 COMPR EHENS FREDO METAB OLIC PANEL chloride 106 mmol/ L 98-110 normal Not Available [employer] [address], [address], 05/31/2022 14:06:45 05/31/19 23 05/31/2022 COMPR EHENS FREDO METAB OLIC PANEL carbon dioxide 26 mmol/ L 20-32 normal Not Available [employer] [place] [address] [address] [place], [address], 05/31/2022 14:06:45 05/31/19 23 05/31/2022 COMPR EHENS FREDO METAB OLIC PANEL calcium 9.2 mg/dL 8.6-10 .3 normal Not Available [address], [address], 05/31/2022 14:06:45 05/31/1905/31/2022 COMPR EHENS FREDO METAB OLIC PANEL protein, total 6.8 g/dL 6.1-8. 1 normal Not Available [address], [address], 05/31/2022 14:06:45 05/31/19 23 05/31/2022 COMPR EHENS FREDO METAB OLIC PANEL albumin 4.0 g/dL 3.6-5. 1 normal Not Available [address], [address], 05/31/2022 14:06:45 05/31/19 23 05/31/2022 COMPR EHENS FREDO METAB OLIC PANEL globulin 2.8 g/dL_ (calc ) 1.9-3. 7 normal Not Available [address], [address], 05/31/2022 14:06:45 05/31/1905/31/2022 COMPR EHENS FREDO METAB OLIC PANEL albumin/glob ulin ratio 1.4 (calc ) 1.0-2. 5 normal Not Available [address], [address], 05/31/2022 14:06:45 05/31/1905/31/2022 COMPR EHENS FREDO METAB OLIC PANEL bilirubin, total 0.4 mg/dL 0.2-1. 2 normal Not Available [address], [address], 05/31/2022 14:06:45 05/31/19 23 05/31/2022 COMPR EHENS FREDO METAB OLIC PANEL alkaline phosphatase 80 U/L 35-144 normal Not Available [facility] [address], [address], 05/31/2022 14:06:45 05/31/19 23 05/31/2022 COMPR EHENS FREDO METAB OLIC PANEL AST 17 U/L 10-35 normal Not Available [address], [address], 05/31/2022 14:06:45 05/31/19 23 05/31/2022 COMPR EHENS FREDO METAB OLIC PANEL ALT 21 U/L 9-46 normal Not Available [address], [address], 05/31/2022 14:06:45 07/11/19 23 07/15/2022 COMPR EHENS FREDO METAB OLIC PANEL glucose 187 mg/dL 65-99 high Fasti ng refer ence inter flaco For someo ne witho ut known diabe zonia, a gluco se value >125 mg/dL indic ates that they may have diabe zonia and this shoul d be confi rmed with a follo w-up test. Not Available [address], [address], 07/15/2022 14:44:22 07/11/1907/15/2022 COMPR EHENS FREDO METAB OLIC PANEL urea nitrogen (BUN) 28 mg/dL 7-25 high Not Available [facility] [address], [address], 07/15/2022 14:44:22 07/11/19 23 07/15/2022 COMPR EHENS FREDO METAB OLIC PANEL creatinine 1.74 mg/dL 0.70-1 .28 high Not Available [facility] [address], [address], 07/15/2022 14:44:22 07/11/19 23 07/15/2022 COMPR EHENS FREDO METAB OLIC PANEL eGFR 41 mL/mi n/1.7 3m2 > or = 60 low The eGFR is based on the CKD-E PI 2020 equat ion. To calcu late the new eGFR from a previ ous Creat inine or Cysta tin C resul t, go to https ://hollie snell.renetta anaya.o lashell/konrad curtisal s/ kdoqi /gfr% 5Fcal culat or Not Available [address] [address] [place], [address], 07/15/2022 14:44:22 07/11/19 23 07/15/2022 COMPR EHENS FREDO METAB OLIC PANEL BUN/creatini ne ratio 16 (calc ) 6-22 normal Not Available [address], [address], 07/15/2022 14:44:22 07/11/19 23 07/15/2022 COMPR EHENS FREDO METAB OLIC PANEL sodium 140 mmol/ L 135-14 6 normal Not Available [address], [address], 07/15/2022 14:44:22 07/11/19 23 07/15/2022 COMPR EHENS FREDO METAB OLIC PANEL potassium 4.6 mmol/ L 3.5-5. 3 normal Not Available [address], [address], 07/15/2022 14:44:22 07/11/19 23 07/15/2022 COMPR EHENS FREDO METAB OLIC PANEL chloride 103 mmol/ L 98-110 normal Not Available [address], [address], 07/15/2022 14:44:22 07/11/19 23 07/15/2022 COMPR EHENS FREDO METAB OLIC PANEL carbon dioxide 31 mmol/ L 20-32 normal Not Available [address] [place], [address], 07/15/2022 14:44:22 07/11/19 23 07/15/2022 COMPR EHENS FREDO METAB OLIC PANEL calcium 9.4 mg/dL 8.6-10 .3 normal Not Available [address], [address], 07/15/2022 14:44:22 07/11/19 23 07/15/2022 COMPR EHENS FREDO METAB OLIC PANEL protein, total 6.7 g/dL 6.1-8. 1 normal Not Available [address], [address], 07/15/2022 14:44:22 07/11/19 23 07/15/2022 COMPR EHENS FREDO METAB OLIC PANEL albumin 3.9 g/dL 3.6-5. 1 normal Not Available [address], [address], 07/15/2022 14:44:22 07/11/19 23 07/15/2022 COMPR EHENS FREDO METAB OLIC PANEL globulin 2.8 g/dL_ (calc ) 1.9-3. 7 normal Not Available [address], [address], 07/15/2022 14:44:22 07/11/19 23 07/15/2022 COMPR EHENS FREDO METAB OLIC PANEL albumin/glob ulin ratio 1.4 (calc ) 1.0-2. 5 normal Not Available [address], [address], 07/15/2022 14:44:22 07/11/19 23 07/15/2022 COMPR EHENS FREDO METAB OLIC PANEL bilirubin, total 0.5 mg/dL 0.2-1. 2 normal Not Available [address], [address], 07/15/2022 14:44:22 07/11/19 23 07/15/2022 COMPR EHENS FREDO METAB OLIC PANEL alkaline phosphatase 85 U/L 35-144 normal Not Available [address], [address], 07/15/2022 14:44:22 07/11/19 23 07/15/2022 COMPR EHENS FREDO METAB OLIC PANEL AST 19 U/L 10-35 normal Not Available [address], [address], 07/15/2022 14:44:22 07/11/19 23 07/15/2022 COMPR EHENS FERDO METAB OLIC PANEL ALT 22 U/L 9-46 normal Not Available [address], [address], 07/15/2022 14:44:22 07/11/19 23 07/15/2022 ALBUM IN, RANDO M URINE W/CRE ATINI NE creatinine, random urine 184 mg/dL 20-320 normal Not Available [address], [address], 07/15/2022 14:44:22 07/11/19 23 07/15/2022 ALBUM IN, RANDO M URINE W/CRE ATINI NE albumin, urine 213.6 mg/dL see note: normal Refer ence Range : Refer ence Range Not estab lishe d Not Available [address], [address], 07/15/2022 14:44:22 07/11/19 23 07/15/2022 ALBUM IN, RANDO M URINE W/CRE ATINI NE albumin/crea tinine ratio, random urine 1161 mcg/m g_cre at <30 high The ADA defin es abnor malit ies in album in excre tion as follo ws: Album inuri a Categ ory Resul t (mcg/ mg creat inine ) Johanny l to Mildl y incre ased <30 Moder ately incre ased 30-29 9 Sever alecia incre ased > OR = 300 The ADA recom mends that at least two of three speci mens colle cted withi n a 3-6 month perio d be abnor mal befor e consi dallas g a patie nt to be withi n a diagn ostic categ ory. Not Available [facility] [address] [address] [place], [address], 07/15/2022 14:44:22 07/11/1907/15/2022 HEMOG LOBIN A1C hemoglobin A1C 8.4 %_of_ total _HGB <5.7 high For someo ne witho ut known diabe zonia, a hemog lobin A1c value of 6.5% or great er indic ates that they may have diabe zonia and this shoul d be confi rmed with a follo w-up test. For someo ne with known diabe zonia, a value <7% indic ates that their diabe zonia is well contr olled and a value great er than or equal to 7% indic ates subop timal contr ol. A1c targe ts shoul d be indiv idual ized based on durat ion of diabe zonia, age, comor bid condi tions , and other consi derat ions. Curre ntly, no conse nsus exist s anselmo velasquez use of hemog lobin A1c for diagn osis of diabe zonia for child fabiola. Not Available [facility] [address] [place], [address], 07/15/2022 14:44:23 07/11/19 23 07/15/2022 LIPID PANEL W/REF L DIREC T LDL, CARDI O IQ(R) cholesterol, total 133 mg/dL <200 Not Available [facility] [address] [place], [address], 07/15/2022 14:44:24 07/11/19 23 07/15/2022 LIPID PANEL W/REF L DIREC T LDL, CARDI O IQ(R) HDL cholesterol 43 mg/dL >39 Not Available [facility] [address] [address], [place], [address], 07/15/2022 14:44:24 07/11/19 23 07/15/2022 LIPID PANEL W/REF L DIREC T LDL, CARDI O IQ(R) triglyceride s 118 mg/dL <150 Not Available [facility] [address] [address], [place], [address], 07/15/2022 14:44:24 07/11/19 23 07/15/2022 LIPID PANEL W/REF L DIREC T LDL, CARDI O IQ(R) LDL-choleste rol 70 mg/dL _(khushi c) <100 Mayco able range <100 mg/dL for prima ry preve ntion ; <70 mg/dL for patie nts with CHD or diabe tic patie nts with >= 2 CHD risk facto rs. LDL-C is now calcu lated using the [facility] [employer] calcu latio n, which is a valid ated novel metho d provi ding zofia r accur acy than the Fried maik equat ion in the estim ation of LDL-C . Anabel n SS et al. SURI. 2013; 310(1 9): 206- 2067 (http ://ed ati on.[employer]. com/f aq/FA Q164) LDL-C is now calcu lated using the [facility] [employer] calcu latio n, which is a valid ated novel metho d provi ding ozfia r accur acy than the Fried maik equat ion in the estim ation of LDL-C . Anabel n SS et al. SURI. 2013; 310(1 9): 206- 206 (http ://ed ati on.[employer]. com/f aq/FA Q164) Not Available [facility] [address] [address], [place], [address], 07/15/2022 14:44:24 07/11/19 23 07/15/2022 LIPID PANEL W/REF L DIREC T LDL, CARDI O IQ(R) chol/HDLC ratio 3.1 calc <3.6 Not Available [address], [address], 07/15/2022 14:44:24 07/11/19 23 07/15/2022 LIPID PANEL W/REF L DIREC T LDL, CARDI O IQ(R) non HDL cholesterol 90 mg/dL _(khushi c) <130 For patie nts with diabe zonia plus 1 major ASCVD risk facto r, treat ing to a non-H DL-C goal of <100 mg/dL (LDL- C of <70 mg/dL ) is consi dered a thera peuti c optio n. For patie nts with diabe zonia plus 1 major ASCVD risk facto r, treat ing to a non-H DL-C goal of <100 mg/dL (LDL- C of <70 mg/dL ) is consi dered a thera peuti c optio n. Not Available [address], [address], 07/15/2022 14:44:24 09/15/19 23 09/15/2022 LIPID PANEL , STAND KHLOE cholesterol, total 149 mg/dL <200 normal Not Available [address], [address], 09/15/2022 17:10:02 09/15/19 23 09/15/2022 LIPID PANEL , STAND KHLOE HDL cholesterol 45 mg/dL > or = 40 normal Not Available [address], [address], 09/15/2022 17:10:02 09/15/19 23 09/15/2022 LIPID PANEL , STAND KHLOE triglyceride s 103 mg/dL <150 normal Not Available [address] [place], [address], 09/15/2022 17:10:02 09/15/19 23 09/15/2022 LIPID PANEL , STAND KHLOE LDL-choleste rol 84 mg/dL _(khushi c) normal Refer ence range : <100 Mayco able range <100 mg/dL for prima ry preve ntion ; <70 mg/dL for patie nts with CHD or diabe tic patie nts with > or = 2 CHD risk facto rs. LDL-C is now calcu lated using the Anabel n-Hop kins calcu dilan n, which is a valid ated novel metho d provi ding zofia r accur acy than the Fried maik equat ion in the estim ation of LDL-C . Anabel turner SS et al. SURI. 2013; 310(1 9): 2061- 206 (http ://ed ucati on.Qu estB&W [employer]. com/f aq/FA Q164) Not Available [facility] [address] [place], [address], 09/15/2022 17:10:02 09/15/19 23 09/15/2022 LIPID PANEL , STAND KHLOE chol/HDLC ratio 3.3 (calc ) <5.0 normal Not Available [facility] [address] [address] , [place], [address], 09/15/2022 17:10:02 09/15/19 23 09/15/2022 LIPID PANEL , STAND KHLOE non HDL cholesterol 104 mg/dL _(khushi c) <130 normal For patie nts with diabe zonia plus 1 major ASCVD risk facto r, treat ing to a non-H DL-C goal of <100 mg/dL (LDL- C of <70 mg/dL ) is consi dered a thera peuti c optio n. Not Available [facility] [address] [place], [address], 09/15/2022 17:10:02 09/15/19 23 09/15/2022 DIREC T LDL direct LDL 75 mg/dL <100 normal Great ly eleva pablito Trigl yceri nafisa value s (>120 0 mg/dL ) inter fere with the dLDL assay . As no Trigl yceri nafisa testi ng was order ed, inter pret resul ts with cauti on. Mayco able range <100 mg/dL for prima ry preve ntion ; <70 mg/dL for patie nts with CHD or diabe tic patie nts with > or = 2 CHD risk facto rs. Not Available [address], [address], 09/15/2022 17:10:03 09/15/19 23 09/15/2022 COMPR EHENS FREDO METAB OLIC PANEL glucose 187 mg/dL 65-99 high Fasti ng refer ence inter flaco For someo ne witho ut known diabe zonia, a gluco se value >125 mg/dL indic ates that they may have diabe zonia and this shoul d be confi rmed with a follo w-up test. Not Available [address], [address], 09/15/2022 17:10:04 09/15/19 23 09/15/2022 COMPR EHENS FREDO METAB OLIC PANEL urea nitrogen (BUN) 34 mg/dL 7-25 high Not Available [address], [address], 09/15/2022 17:10:04 09/15/19 23 09/15/2022 COMPR EHENS FREDO METAB OLIC PANEL creatinine 1.56 mg/dL 0.70-1 .28 high Not Available [address], [address], 09/15/2022 17:10:04 09/15/19 23 09/15/2022 COMPR EHENS FREDO METAB OLIC PANEL eGFR 47 mL/mi n/1.7 3m2 > or = 60 low Not Available [address], [address], 09/15/2022 17:10:04 09/15/19 23 09/15/2022 COMPR EHENS FREDO METAB OLIC PANEL BUN/creatini ne ratio 22 (calc ) 6-22 normal Not Available [address] [place], [address], 09/15/2022 17:10:04 09/15/19 23 09/15/2022 COMPR EHENS FREDO METAB OLIC PANEL sodium 138 mmol/ L 135-14 6 normal Not Available [address], [address], 09/15/2022 17:10:04 09/15/19 23 09/15/2022 COMPR EHENS FREDO METAB OLIC PANEL potassium 5.5 mmol/ L 3.5-5. 3 high Not Available [address], [address], 09/15/2022 17:10:04 09/15/19 23 09/15/2022 COMPR EHENS FREDO METAB OLIC PANEL chloride 104 mmol/ L 98-110 normal Not Available [address], [address], 09/15/2022 17:10:04 09/15/19 23 09/15/2022 COMPR EHENS FREDO METAB OLIC PANEL carbon dioxide 29 mmol/ L 20-32 normal Not Available [address], [address], 09/15/2022 17:10:04 09/15/19 23 09/15/2022 COMPR EHENS FREDO METAB OLIC PANEL calcium 9.6 mg/dL 8.6-10 .3 normal Not Available [address], [address], 09/15/2022 17:10:04 09/15/19 23 09/15/2022 COMPR EHENS FREDO METAB OLIC PANEL protein, total 7.3 g/dL 6.1-8. 1 normal Not Available [address], [address], 09/15/2022 17:10:04 09/15/19 23 09/15/2022 COMPR EHENS FREDO METAB OLIC PANEL albumin 4.2 g/dL 3.6-5. 1 normal Not Available [address], [address], 09/15/2022 17:10:04 09/15/19 23 09/15/2022 COMPR EHENS FREDO METAB OLIC PANEL globulin 3.1 g/dL_ (calc ) 1.9-3. 7 normal Not Available [address], [address], 09/15/2022 17:10:04 09/15/19 23 09/15/2022 COMPR EHENS FREDO METAB OLIC PANEL albumin/glob ulin ratio 1.4 (calc ) 1.0-2. 5 normal Not Available [address], [address], 09/15/2022 17:10:04 09/15/19 23 09/15/2022 COMPR EHENS FREDO METAB OLIC PANEL bilirubin, total 0.5 mg/dL 0.2-1. 2 normal Not Available [address], [address], 09/15/2022 17:10:04 09/15/19 23 09/15/2022 COMPR EHENS FREDO METAB OLIC PANEL alkaline phosphatase 86 U/L 35-144 normal Not Available [address], [address], 09/15/2022 17:10:04 09/15/19 23 09/15/2022 COMPR EHENS FREDO METAB OLIC PANEL AST 17 U/L 10-35 normal Not Available [address], [address], 09/15/2022 17:10:04 09/15/19 23 09/15/2022 COMPR EHENS FREDO METAB OLIC PANEL ALT 20 U/L 9-46 normal Not Available [address], [address], 09/15/2022 17:10:04 09/15/19 23 09/15/2022 ALBUM IN, RANDO M URINE W/CRE ATINI NE creatinine, random urine 89 mg/dL 20-320 normal Not Available [facility] [address], [place], [address], 09/15/2022 17:10:05 09/15/19 23 09/15/2022 ALBUM IN, RANDO M URINE W/CRE ATINI NE albumin, urine 117.6 mg/dL see note: normal Refer ence Range : Refer ence Range Not estab lishe d Not Available [place] [address] [facility] [place], [address], 09/15/2022 17:10:05 09/15/19 23 09/15/2022 ALBUM IN, RANDO M URINE W/CRE ATINI NE albumin/crea tinine ratio, random urine 1321 mcg/m g_cre at <30 high The ADA defin es abnor malit ies in album in excre tion as follo ws: Album inuri a Categ ory Resul t (mcg/ mg creat inine ) Johanny l to Mildl y incre ased <30 Moder ately incre ased 30-29 9 Sever aleica incre ased > OR = 300 The ADA recom mends that at least two of three speci mens colle cted withi n a 3-6 month perio d be abnor mal befor e consi dallas g a patie nt to be withi n a diagn ostic categ ory. Not Available [facility] [address] [place], [address], 09/15/2022 17:10:05 09/15/19 23 09/15/2022 HEMOG LOBIN A1C hemoglobin A1C 10.3 %_of_ total _HGB <5.7 high For someo ne witho ut known diabe zonia, a hemog lobin A1c value of 6.5% or great er indic ates that they may have diabe zonia and this shoul d be confi rmed with a follo w-up test. For someo ne with known diabe zonia, a value <7% indic ates that their diabe zonia is well contr olled and a value great er than or equal to 7% indic ates subop timal contr ol. A1c targe ts shoul d be indiv idual ized based on durat ion of diabe zonia, age, comor bid condi tions , and other consi derat ions. Curre ntly, no conse nsus exist s anselmo velasquez use of hemog lobin A1c for diagn osis of diabe zonia for child fabiola. Not Available [facility] [place] [address] [facility] [place], [address], 09/15/2022 17:10:05 Result Notes None recorded. Problems Name Problem SNOMED Code Status Onset Date Resolution Date Notes Provider Name and Address Organization Details Recorded Time Hypertensive disorder 22645667 Active 2018 Not Available [facility] 3 00:50:21 Type 2 diabetes mellitus 24010782 Active 2018 Not Available [facility] 3 00:50:21 Hyperlipidemi a 06673668 Active 2019 Not Available [facility] 3 00:50:21 Congestive heart failure 28763787 Active 2019 Not Available [facility] 3 00:50:21 Uncontrolled type 2 diabetes mellitus 026879121 Active 2022 Angelica Szymanski MD [address], [place], [address] , [facility] 3 12:45:39 Proteinuria 87340973 Active 2022 Angelica Szymanski MD [address], [place], [address] , [employer] 3 12:47:15 Dyslipidemia 379437230 Active 2022 Angelica Szymanski MD [address], [place], [address] , [employer] 3 12:48:31 Essential hypertension 95015872 Active 2022 Angelica Szymanski MD [address], [place], [address] , [place] [facility] [place] [employer] [facility] 3 12:46:01 Notes:Some problems listed i n Document: #[id number] could not be added to this patient's chart. Please review this document and add these problems to the patient's chart manually as needed. Problem Notes None recorded. Procedures Surgical History Date Name Laterality Status Provider Name and Address Organization Details Recorded Time heart valve replacement completed Not Available [facility] 04/08/2022 00:45:34 Cataract Surgery completed Not Available [facility] 04/08/2022 00:45:34 Knee Surgery completed Not Available [facility] 04/08/2022 00:45:34 Imaging Results None recorded. Procedure Notes None recorded. Medical Equipment None Reported. Allergies No known drug allergies Medications Name Sig Start Date Stop Date Status Note LastModified by Organization Details LastModified Time amoxicillin 500 mg capsule 08/15 completed Not Available Not Available Not Available furosemide 40 mg tablet TAKE 1 TABLET BY MOUTH TWICE DAILY active Not Available Not Available No t Available metformin 500 mg tablet Take 1 tablet twice a day by oral route. 06/01 completed Not Available Not Available Not Available bupropion HCl SR 150 mg tablet,12 hr sustained-r elease Take 1 tablet twice a day by oral route. 06/01 completed Not Available Not Available Not Available carvedilol 6.25 mg tablet TAKE 1 TABLET BY MOUTH TWICE DAILY WITH MEALS 11/25 completed Not Available Not Available Not Available carvedilol 12.5 mg tablet Take 1 tablet twice a day by oral route. 04/11 completed Not Available Not Available Not Available Glucagon Emergency Kit 1 mg solution for injection Take 1 mg as needed by injection route as needed for 1 day. active Not Available Not Available No t Available ofloxacin 0.3 % eye drops 07/26 completed Not Available Not Available Not Available lisinopril 20 mg tablet TAKE 1 TABLET BY MOUTH TWICE DAILY active Not Available Not Available No t Available Accu-Chek Softclix Lancets test sugars 4 times daily before meals active Not Available Not Available No t Available amlodipine 5 mg tablet TAKE 1 TABLET BY MOUTH ONCE DAILY active Not Available Not Available No t Available sildenafil 100 mg tablet TAKE ONE TABLET BY MOUTH APPROXIMA TELY 30 MINUTES TO 4 HOURS BEFORE SEXUAL ACTIVITY. DO NOT USE MORE THAN ONE DOSE DAILY 11/25 completed Not Available Not Available Not Available spironolact one 25 mg tablet TAKE 1/2 (ONE-HALF ) TABLET BY MOUTH THREE TIMES A WEEK active Not Available Not Available No t Available glimepiride 2 mg tablet TAKE 1 TABLET BY MOUTH ONCE DAILY BEFORE A MEAL 07/26 completed Not Available Not Available Not Available carvedilol 3.125 mg tablet TAKE 1 TABLET BY MOUTH TWICE DAILY WITH MEALS active Not Available Not Available No t Available ketorolac 0.5 % eye drops 07/26 completed Not Available Not Available Not Available prednisolon e acetate 1 % eye drops,suspe nsion 07/26 completed Not Available Not Available Not Available tamsulosin 0.4 mg capsule 04/11 completed Not Available Not Available Not Available amlodipine 10 mg tablet TAKE 1 TABLET BY MOUTH ONCE DAILY active Not Available Not Available No t Available doxazosin 4 mg tablet TAKE 1 TABLET BY MOUTH TWICE DAILY active Not Available Not Available No t Available hydralazine 50 mg tablet TAKE 1 TABLET BY MOUTH THREE TIMES DAILY active Not Available Not Available No t Available furosemide 20 mg tablet TAKE 1 TABLET BY MOUTH ONCE DAILY 06/01 completed Not Available Not Available Not Available timolol maleate 0.5 % eye drops INSTILL 1 DROP INTO LEFT EYE TWICE DAILY 09/25 completed Not Available Not Available Not Available metformin ER 500 mg tablet,exte nded release 24 hr 06/01 completed Not Available Not Available Not Available atenolol 50 mg tablet 04/11 completed Not Available Not Available Not Available valsartan 160 mg tablet 04/11 completed Not Available Not Available Not Available Pneumovax-2 3 25 mcg/0.5 mL injection syringe PHARMACIS T ADMINISTE RED IMMUNIZAT ION ADMINISTE RED AT TIME OF DISPENSIN G 09/25 completed Not Available Not Available Not Available insulin lispro (U-100) 100 unit/mL subcutaneou s pen INJECT 20 UNITS SUBCUTANE OUSLY THREE TIMES DAILY WITH MEALS active Not Available Not Available No t Available amlodipine 10 mg-benazepr il 20 mg capsule Take 1 capsule every day by oral route. 04/11 completed Not Available Not Available Not Available rosuvastati n 40 mg tablet TAKE 1 TABLET BY MOUTH ONCE DAILY active Not Available Not Available No t Available valsartan 320 mg-hydrochl orothiazide 25 mg tablet Take 1 tablet every day by oral route. 04/11 completed Not Available Not Available Not Available BD Ultra-Fine Short Pen Needle 31 gauge x 5/16 USE WITH INSULIN UP TO 4 TIMES DAILY FOR 90 DAYS active Not Available Not Available No t Available cholecalcif shailesh (vitamin D3) 1,250 mcg (50,000 unit) capsule TAKE 1 CAPSULE BY MOUTH ONCE A WEEK active Not Available Not Available No t Available Humalog Mix 75-25 KwikPen U-100 insulin 100 unit/mL subcutaneou s pen 10/04 completed Not Available Not Available Not Available Humalog KwikPen Insulin 75/25 10/04 completed Not Available Not Available Not Available Prevnar 13 (PF) 0.5 mL intramuscul ar syringe PHARMACIS T ADMINISTE RED IMMUNIZAT ION ADMINISTE RED AT TIME OF DISPENSIN G 06/01 completed Not Available Not Available Not Available Trulicity 1.5 mg/0.5 mL subcutaneou s pen injector INJECT 1.5 MG SUBCUTANE OUSLY ONCE A WEEK AT DINNER 07/14 completed Not Available Not Available Not Available Tresiba FlexTouch U-200 insulin 200 unit/mL (3 mL) subcutaneou s pen INJECT 60 UNITS SUBCUTANE OUSLY ONCE DAILY AT BEDTIME active Not Available Not Available No t Available Accu-Chek Guide test strips USE 1 STRIP TO CHECK GLUCOSE 4 TIMES DAILY BEFORE MEAL(S) active Not Available Not Available No t Available Accu-Chek Guide Glucose Meter USE 4 TIMES DAILY BEFORE MEAL(S) DIRECTED active Not Available Not Available No t Available Ozempic 0.25 mg or 0.5 mg (2 mg/1.5 mL) subcutaneou s pen injector INJECT 0.5MG SUB-Q ONCE A WEEK IN THE MORNING 07/14 completed Not Available Not Available Not Available OneTouch Ultra Blue Test Strip active Not Available Not Available N ot Available [employer]oke HypoPen 2-Pack 1 mg/0.2 mL subcutaneou s auto-inject or Inject 1 mg as needed by subcutane ous route as needed for 1 day. active Not Available Not Available No t Available Trulicity 3 mg/0.5 mL subcutaneou s pen injector INJECT3 mg SQ once weekly x 90 days 09/25 completed Not Available Not Available Not Available Trulicity 4.5 mg/0.5 mL subcutaneou s pen injector INJECT 4.5 MG SUBCUTANE OUSLY ONCE A WEEK active Not Available Not Available No t Available Kerendia 10 mg tablet TAKE 1 TABLET BY MOUTH IN THE MORNING active Not Available Not Available No t Available Vitals Date Recorded Body mass index (BMI) Body height Oxygen saturation Oxygen saturation in Arterial blood by Pulse oximetry Heart rate Body temperature Body weight Systolic And Diastolic Provider Name and Address Organization Details Last Updated DateTime 2 39.7 kg/m2 175.26 cm 98 % 98 % 70 /min 97.7 [degF] 598378. 35 g 145/100 mm[Hg] Not Available [facility] 3 00:46:43 Date Recorded Body height Body mass index (BMI) Body weight Heart rate Body temperature Systolic And Diastolic Provider Name and Address Organization Details Last Updated DateTime 3 175.26 cm 40.8 kg/m2 675470. 49 g 83 /min 97.9 [degF] 146/82 mm[Hg] Yeni Dudley CMA [facility] 3 12:28:35 Date Recorded Body mass index (BMI) Body height Oxygen saturation Oxygen saturation in Arterial blood by Pulse oximetry Heart rate Body temperature Body weight Systolic And Diastolic Provider Name and Address Organization Details Last Updated DateTime 2 39.4 kg/m2 175.26 cm 96 % 96 % 56 /min 97.7 [degF] 974996. 16 g 160/80 mm[Hg] Not Available [facility] 3 00:46:43 Date Recorded Body height Body mass index (BMI) Body weight Body temperature Respiratory rate Heart rate Systolic And Diastolic Provider Name and Address Organization Details Last Updated DateTime 3 175.26 cm 40.3 kg/m2 389644. 44 g 97.8 [degF] 18 /min 74 /min 182/84 mm[Hg] Jes Russo RN [facility] [employer] [facility] 3 12:22:20 Date Recorded Body mass index (BMI) Body height Oxygen saturation Oxygen saturation in Arterial blood by Pulse oximetry Heart rate Body temperature Body weight Systolic And Diastolic Provider Name and Address Organization Details Last Updated DateTime 2 40.2 kg/m2 175.26 cm 97 % 97 % 77 /min 97.8 [degF] 772244. 12 g 160/90 mm[Hg] Not Available [facility] 3 00:46:43 Social History Question Answer Notes LastModified by [employer] Details LastModified Time Tobacco Smoking Status Never Smoker Not Available [facility] 04/08/2022 00:43:21 What Is Your Level Of Caffeine Consumption? Occasional [id number] Information not available 04/08/2022 How Much Tobacco Do You Chew? None [id number] Information not available 04/08/2022 In The 14 Days Before Symptom Onset, Have You Had Close Contact With A Laboratory-confirm ed COVID-19 While That Case Was Ill? No [id number] Information not available 04/08/2022 In The 14 Days Before Symptom Onset, Have You Had Close Contact With A Person Who Is Under Investigation For COVID-19 While That Person Was Ill? No [id number] Information not available 04/08/2022 Which Illicit Or Recreational Drugs Have You Used? None [id number] Information not available 04/08/2022 What Is Your Relationship Status? [id number] Information not available 04/08/2022 Have You Recently Traveled Abroad? No [id number] Information not available 04/08/2022 Sex: Unknown Functional Status Question Answer Note LastModified by [employer] Details LastModified Time What is your level of alcohol consumption? None [id number] Information not available 04/08/2022 Do you or have you ever used smokeless tobacco? Never used smokeless tobacco [id number] Information not available 04/08/2022 Do you or have you ever used e-cigarettes or vape? Never used electronic cigarettes [id number] Information not available 04/08/2022 Mental Status None recorded. Family History Nothing Reported Notes:leaky heart valve Medical History Condition Response DIABETES, TYPE Y HIGH CHOLESTEROL / HYPERLIPIDEMIA Y HYPERTENSION Y Past Encounters Encounter ID Performer Location Encounter Start Date Encounter Closed Date Diagnosis/Indication Diagnosis SNOMED-CT Code Diagnosis ICD10 Code Diagnosis IMO Codes Diagnosis Note [id number] [facility] [address] [place] [address] 04/08/2020 00:00:00 04/08/2020 17:58:24 [id number] [facility] [address] [place] [address] 06/24/2020 00:00:00 06/24/2020 12:50:46 [id number] Angelica Szymanski MD [facility] [address] [place] [address] 07/26/2020 00:00:00 07/26/2020 12:47:55 [id number] Angelica Szymanski MD [facility] [address] [place] [address] 11/25/2020 00:00:00 11/25/2020 12:03:02 [id number] Angelica Szymanski MD [facility] [address] [place] [address] 03/31/2021 00:00:00 03/31/2021 12:27:01 [id number] Angelica Szymanski MD [facility] [address] [place] [address] 07/14/2021 00:00:00 07/14/2021 13:59:32 [id number] Angelica Szymanski MD [facility] [address] [place] [address] 11/28/2021 00:00:00 11/28/2021 21:17:18 [id number] Angelica Szymanski MD [facility] [address] [place] [address] 2022 12:12:26 2022 12:57:45 Uncontrolled type 2 diabetes mellitus 395741397 E11.65 A1C of 8.8% up from 8.6%- continue tresiba at 50 units HS and continue to increase or decrease by 4 units every 4 days to maintain target range of 90-140 mg/dL.Cont inue with lispro SS as previously given - correction of 2:50>150 mg/dL plus 2-4 units with breakfast, 15-17 units with lunch, and 16-20 units with dinner. Continue trulicity 4.5 mg once weekly along with dexcom for close monitoring . 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 He is aware to reach out if any headaches, nausea, GI upset or palpitatio ns and to stop therapy. He voiced understand ing. Dyslipidemia 084869488 E 78.5 LDL in range, continue on statin therapy. Spent up to 28 minutes preparing to see the patient (eg, review of tests), obtaining and/or reviewing separately obtained history, performing a medically appropriat e examinatio n and evaluation , counseling and educating the patient, ordering medication s, tests, along with documentin g clinical informatio n in the electronic health record, independen tly interpreti ng results and communicat ing results to the patient. RTC in 4 months. Patient was provided a handwritte n lab order which contains our fax number. If he chooses to go outside of the [facility] system to obtain labwork he was advised to provide our fax number and my informatio n to the lab he will be obtaining labwork from in order to have his labs properly forwarded over for me to review so there is no loss of follow up due to use of outside network. He was also advised to contact our clinic informing us that he has completed his labwork so we are aware we will need to reach out to the appropriat e laboratory to request his results be forwarded to us so I might have the ability to review and make further medical decision making in his case. He voiced understand ing. [id number] Angelica Szymanski MD [facility] [place] [address] [place] [address] 09/25/2022 12:04:04 09/25/2022 12:59:26 Uncontrolled type 2 diabetes mellitus [id number] E11.65 A1C of 10.3% up from 8.6%- continue tresiba at 50 units HS and continue to increase or decrease by 4 units every 4 days to maintain target range of 90-140 mg/dL as fasting glucose in range. Patient reminded to use his glucose scale to optimize how much insulin he gets to keep sugars under 200 mg/dL during the day- he has dexcom sensor for close monitoring and he is compliant wearing his monitor but reminded to test/be aware of his sugars at least 6 times daily and calibrate at least once daily to optimize control.Co ntinue with lispro SS as previously given - correction of 2:50>150 mg/dL plus 15-17 units with breakfast, 15-17 units with lunch, and 16-20 units with dinner. Continue on trulicity 4.5 mg once weekly along with dexcom for close monitoring . Refer to endocrinol ogy per patient request. Dyslipidemia 913778607 E 78.5 LDL in range, continue on statin therapy. Essential hypertension 12384800 I10 Follows nephrology for CKD and hypertensi on- going for imaging to screen for INGRIS soon to assess for underlying cause. Spent up to 25 minutes preparing to see the patient (eg, review of tests), obtaining and/or reviewing separately obtained history, performing a medically appropriat e examinatio n and evaluation , counseling and educating the patient, ordering medication s, tests, along with documentin g clinical informatio n in the electronic health record, independen tly interpreti ng results and communicat ing results to the patient. Patient can be followed by PCP - she/he is aware of my resignatio n and last day of November 20. If needed his/her PCP can refer patient to another endocrinol ogist in the area. All questions /concerns answered and refills necessary at visit today. Health Concerns Section Related Observation LastModified by Organization Detai ls LastModified Time None Recorded Concern Status LastModified by Organization Details LastModified Time None Recorded Advance Directives Directive None Recorded Payers Insurance Date Sequence Insurance Name Policy Number Policy Myrick Covered Member ID Myrick Member ID Guarantor Name 09/22/2022 1 [facility] (MEDICARE REPLACEMENT/A DVANTAGE - HMO) [id number] Kole Love [id number] Kole Arizmendi Kate Notes Date Note Type Note Provider Name and Address Organization Details Recorded Time 2022 text/html ROS as noted in the HPI 71 yo male comes in for follow up in management of uncontrolled type 2 DM (A1C of 8.8% up from 8.6%), mixed dyslipidemia. last seen in Nov at that time we continued trulicity 3 mg once weekly with largest meal.we continued tresiba at 50 units HS and continue to increase or decrease by 4 units every 4 days to maintain target range of 90-140 mg/dL.we continued with lispro SS as previously given - correction of 2:50>150 mg/dL plus 2-4 units with breakfast, 15-17 units with lunch, and 16-20 units with dinner. He is taking 50 of tresiba at bedtime and also taking 4.5 mg of trulicity once weekly. He cannot tell a difference. He had covid this last winter and sugars were consistently over 200 mg/dL. However for past month he has had improvement and currently 140 mg/dL in clinic today. Denies any hypoglycemia typically under 150 mg/dL in morning.Has dexcom and compliant with use for monitoring. labs from 02/12/22:a1c 8.8%TSH of 1.31 uIU/mlFT4 of 1.2 ng/dL160/99/57/84glucos e 127 mg/dLCr 1.33 mg/dL with GFR 57 ml/min (K of 4.4 mmol/L)LFT normalmicroalbumin 1852 ug/mg Angelica Szymanski MD [address] [facility], [facility] [address], [place], [address], [facility] [email or web address] 2022 13:54:58 09/25/2022 text/html ROS as noted in the HPI 72 yo male comes in for follow up in management of poorly controlled type 2 DM (A1C of 10.3% up from 8.5%), dyslipidemia. last seen in April at that time we had patient continue tresiba at 50 units HS and continue to increase or decrease by 4 units every 4 days to maintain target range of 90-140 mg/dL. We had patient continue with lispro SS as previously given - correction of 2:50>150 mg/dL plus 2-4 units with breakfast, 15-17 units with lunch, and 16-20 units with dinner.We had patient continue trulicity 4.5 mg once weekly along with dexcom for close monitoring. He is seeing his fisher lobster every 6 months. He was struggling with kerendia and only taking this three days a week. He follows Dr. Hoyos for management of CKD. He will be going next month for a CT scan to assess for INGRIS. As far as his tresiba he is taking 50 units at bedtime along with lispro 15 units before meals plus correction if needed. He is still on trulicity 4.5 mg once weekly. His dexcom is showing variable sugars. He runs as high as 300 mg/dL and drops down to 50 mg /dL every 3-4 weeks. His average is around 230 mg/dL. labs from 09/14/22:a1c of 10.3%microalbumin 1321 ug/mgCr 1.56 mg/dL with GFR 47 ml/minLFT [id number]/45/84 Angelica Szym[facility] [address] [facility] [address], [place], [address], [facility] 09/25/2022 12:46:45
--- OUTSIDE RECORDS SUMMARY | 2024-12-19 17:31 | XMS_ITS | Encounter Summary ---
Author Organization [facility] [employer] [facility] Address [address] [place] [address] Phone Care Team Providers Care Flap Maker Name Role Phone Josefa Almaraz MD Primary Care Provider William Kramer MD Unavailable [phone] Angelica Gardner MD Unavailable [phone] Jocelyn Charles MD Unavailable [phone] Encounter Details Date Type Department Care Team (Latest Contact Info) Description 04/19/2019 Orders Only [facility] Scanning, Provider Social History Tobacco Use Types Packs/Day Years Used Date Smoking Tobacco: Never Smokeless Tobacco: Never Alcohol Use Standard Drinks/Week Comments No 0 (1 standard drink = 0.6 oz pur e alcohol) Sex and Gender Information Value Date Recorded Sex Assigned at Not on file 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 BMP on 04/06, Na 142, K 4.6, creat 1.4, BUN 27. Attached is f/u labs. Pt provided update yesterday under notes. * William Kramer MD - 04/19/2019 11:59 PM CDT Labs stable. Continue current medications. * Yudith Leblanc RN - 04/19/2019 11:59 PM CDT LMOR with recommendations. Pt to cb if any questions or concerns. documented in this encounter Plan of Treatment Not on file documented as of this encounter Procedures Procedure Name Priority Date/Time Associated Diagnosis Comments SCAN - LABS 04/19/2019 documented in this encounter Results * SCAN - LABS (04/19/2019) us Provider Scanning Final Result documented in this encounter Visit Diagnoses Not on filedocumented in this encounter Care Teams Flap Maker Relationship Specialty Start Date End Date Josefa Almaraz MD PCP - General 12/20/17 William Kramer MD Referring Physician Cardiology 02/02/18 Angelica Gardner MD Referring Physician Endocrinology 03/23/19 Jocelyn Charles MD [address] [place] [address] Referring Physician Internal Medicine 04/18/24 documented as of this encounter
--- OUTSIDE RECORDS SUMMARY | 2024-12-19 17:31 | XMS_ITS | Clinical Summary ---
Author Organization [facility] Address [address] [place] [address] Care Team Providers Care [facility] Nurse Staff Name Role Phone Josefa Almaraz MD Primary Care Provider William Kramer MD Unavailable Angelica Gardner MD Unavailable [phone] Jocelyn Charles MD Unavailable [phone] Allergies No known active allergies Medications acetaminophen (TYLENOL) 325 mg tablet Take 2 tablets (650 mg total) by mouth every 6 (six) hours as needed for pain. 30 tablet Active Additional Information Patient not taking.Reported on 04/21/2022 TRESIBA FLEXTOUCH U-200 200 unit/mL (3 mL) insulin pen Inject 0.22 mL (44 Units total) under the skin daily. Active insulin lispro (HumaLOG) 100 unit/mL injectionIndi cations:Diabe zonia Mellitus Inject 15 Units under the skin 3 (three) times a day with meals. 10 mL 1 Active Additional Information Patient taking differently: 10 UnitssubcutaneousAs needed, Indications: Diabetes Mellitus, Reported on 04/15/2021 amoxicillin (AMOXIL) 500 mg tablet/capsul e Take 4 tablets I hour prior to visit 12 tablet/cap emely 1 Active Additional Information Patient not taking.Reported on 04/21/2022 aspirin 81 mg tablet Take 1 tablet (81 mg total) by mouth daily. 30 tablet 11 Active Additional Information Patient not taking.Reported on 04/21/2022 ketorolac (ACULAR) 0.5 % ophthalmic solution Administer 1 drop into the left eye 3 (three) times a day Active ofloxacin (OCUFLOX) 0.3 % ophthalmic solution Administer 1 drop into the left eye 3 (three) times a day Active prednisoLONE acetate (PRED FORTE) 1 % ophthalmic suspension Administer 1 drop into the left eye 3 (three) times a day Active Trulicity 1.5 mg/0.5 mL pen injector INJECT 1.5 MG SUBCUTANEOUSLY ONCE A WEEK AT DINNER Active Kerendia 10 mg tablet Take 1 tablet by mouth every morning Active furosemide (LASIX) 40 mg tablet Take 1 tablet by mouth twice daily 180 tablet 1 Active dapagliflozin propanediol (FARXIGA) 5 mg tablet 1 tablet (5 mg total) Active semaglutide (OZEMPIC) 1 mg/dose (4 mg/3 mL) pen injector injection Inject 1 mg under the skin Active amLODIPine (NORVASC) 10 mg tablet Take 1 tablet (10 mg total) by mouth daily 90 tablet 3 Active carvediloL (COREG) 3.125 mg tablet Take 1 tablet (3.125 mg total) by mouth 2 (two) times a day with meals 180 tablet 3 025 04/11 Active doxazosin (CARDURA) 4 mg tablet Take 1 tablet (4 mg total) by mouth 2 (two) times a day 180 tablet 3 Active lisinopriL (PRINIVIL,ZES TRIL) 20 mg tablet Take 1 tablet (20 mg total) by mouth 2 (two) times a day 180 tablet 3 Active rosuvastatin (CRESTOR) 40 mg tablet Take 1 tablet (40 mg total) by mouth daily 90 tablet 3 Active hydrALAZINE (APRESOLINE) 50 mg tablet TAKE 1 TABLET BY MOUTH THREE TIMES DAILY 270 tablet 3 Active buPROPion XL (WELLBUTRIN XL) 150 mg 24 hr tablet TAKE 1 TABLET TWICE DAILY. 12/12 Discontinued Active Problems Problem Noted Date Diagnosed Date Chronic heart failure with preserved ejection fr action 03/19/2020 S/P AVR 03/21/2018 Essential hypertension 02/28/2018 Assessment & Plan (02/28/2018 12:46 PM ROUGE SIFTER): Pt has HTN and bp not to goal Recommend: Add amlodipine 5 mg a day F/u bp Creatinine improved. May need to add back ANA inhibitor (was on benazepril) also. Volume overload 02/26/2018 Assessment & Plan (03/01/2018 11:02 AM ROUGE SIFTER): Cr stable Continue lasix BID CKD (chronic kidney disease) stage 3, GFR 30-59 ml/min 02/23/2018 Assessment & Plan (02/25/2018 10:54 AM ROUGE SIFTER): Creatinine down a bit to 2.0 today. CKD3 in the setting of intense insulin regimen, insulin resistance, post-operative stress, and variable oral intake places patient at increased risk of hypoglycemia due to the decreased clearance of insulin. We will continue to intensely monitor blood glucose and titrate insulin as needed to optimize glycemic control to avoid hypoglycemic/hyperglycemic events. Assessment & Plan (02/24/2018 6:04 PM ROUGE SIFTER): Creatinine 2.19 today CKD3 in the setting of intense insulin regimen, insulin resistance, post- operative stress, and variable oral intake places patient at increased risk of hypoglycemia due to the decreased clearance of insulin. We will continue to intensely monitor blood glucose and titrate insulin as needed to optimize glycemic control to avoid hypoglycemic/hyperglycemic events. Assessment & Plan (03/02/2018 12:34 PM ROUGE SIFTER): Acute on chronic kidney disease Stage 3 Creat stable- 1.47 today Continue IV lasix Daily BMP Assessment & Plan (02/23/2018 11:53 AM ROUGE SIFTER): Patient w/ CKD (baseline Cr 1.2), likely stage 3 if using GFR to classify - f/u daily BMP and monitor UOP and dose response to diuretics - Vancomycin to be discontinued after 2 doses - f/u Potassium levels while receiving Lasix Acute post-operative pain 02/22/2018 Assessment & Plan (02/24/2018 10:02 AM ROUGE SIFTER): Continue scheduled tylenol Oxy PRN Continue to assess pain level Assessment & Plan (02/23/2018 11:51 AM ROUGE SIFTER): Patient reports pain controlled w/ medications this AM - Regimen to include scheduled Tylenol, PRN Oxycodone - may begin topical Lidocaine patch Assessment & Plan (02/22/2018 4:51 PM ROUGE SIFTER): Anticipated post CTSX with sternotomy. -Dilaudid 0.5mg Q30min while intubated -after OGT placed and verified start PT tylenol -lidocaine patches to anterior chest wall CAD (coronary artery disease) 02/16/2018 Overview (02/16/2018): Added automatically from request for surgery [id number] Assessment & Plan (02/28/2018 12:51 PM ROUGE SIFTER): S/p cabg x 1 vessel for OMB stenosis. EKG with Q 3, avF without change c/w preop 01/17/18 Continue asa, statin Assessment & Plan (02/25/2018 10:54 AM ROUGE SIFTER): S/P AVR and CABG on 02/22/18; optimal glycemic control needed for healing to avoid adverse events. Assessment & Plan (02/24/2018 6:05 PM ROUGE SIFTER): S/P AVR and CABG on 02/22/18; optimal glycemic control needed for healing to avoid adverse events. Assessment & Plan (02/22/2018 4:57 PM ROUGE SIFTER): S/p CABG X1 (SVG -> OM). 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 The LAD and dominant RCA have mild narrowing -ASA CA now -ASA and high dose statin POD 1 -CMP with AML to evaluate liver function after CPB prior to starting stain Assessment & Plan (03/01/2018 11:25 AM ROUGE SIFTER): S/p CABG 02/22/18 SVG-OM Continue ASA, statin and betablocker No increase in BB 2/2 previous heart block per Dr Kramer Will d/c PW today Will increase Norvasc to home dose Increase activity as tolerated/OOB/PT Class 3 severe obesity with serious comorbidity in adult 12/22/2017 Assessment & Plan (12/22/2017 6:15 PM ROUGE SIFTER): Associated with sleep apnea and obesity-hypoventilation, dyspnea, and metabolic syndrome. Needs weight loss (of fat) with diet and exercise (as tolerated). Physical deconditioning 12/22/2017 Assessment & Plan (12/22/2017 6:14 PM ROUGE SIFTER): Associated with dyspnea. Exercise rehabilitation, when able. 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 Rx per other problems. When cardiac status tuned up, would get complete PFT, ABG, and oxygen assessment with exertion. Based on these tests and clinical course, would decide if HRCT needed. Obstructive sleep apnea 12/21/2017 Overview (02/21/2018): Continue CPAP Assessment & Plan (02/23/2018 11:45 AM ROUGE SIFTER): Patient utilizes CPAP at home, currently on Opti- flow to maintain SPO2 >92% - Discontinue Opti- flow and add nasal cannula - OOB/PT and encourage IS for atelectasis Assessment & Plan (02/21/2018 2:17 PM ROUGE SIFTER): Continue CPAP Assessment & Plan (12/23/2017 12:48 PM ROUGE SIFTER): Severe JENNIFER diagnosed on sleep study this admission -recommend BiPAP /, backup rate 12, 4L oxygen, HOB 30 degrees -pulm consulted: recommend PFT, ABG, and oxygen assessment with exertion Assessment & Plan (12/23/2017 9:04 AM ROUGE SIFTER): Pt with documented severe JENNIFER. Obese, HTN, bradycardia with Wenckebach ast night. Management per sleep medicine/pulmonary Assessment & Plan (12/23/2017 4:47 PM ROUGE SIFTER): Official sleep study report confirms obstructive sleep apnea with a concomitant central component. Will continue with current nocturnal BiPAP setting. Mallampati Class III: soft palate visible, but uvula and pillars NOT visible; hard palate visible. STOP-Bang questionnaire: 5 points = high risk for JENNIFER (Age, male, neck size high, BMI high, HTN) [place] Sleepiness Scale = Higher Normal Daytime Sleepiness RECOMMENDATIONS: TESTING: Check TSH SpO2/ABG prn TREATMENT: Use CPAP/BiPAP during sleep as instructed. Use supplemental oxygen as a bleed-in during sleep as instructed. HOB elevated. Weight loss. Work on sleep hygiene at home: Avoid caffeine after noon, minimize alcohol use, and avoid sedative use. Minimize daytime naps. Avoid bright computer / device screens for at least an hour before bed. [place] bed for sleeping. Do not have screen time (TV, computer, smart phone, etc.) in bed. Avoid watching TV or working on computer if unable to sleep as the light from those devices can be stimulating. Do not look at clock frequently, but if unable to fall asleep after approximately 20 minutes, then move to another room to perform a quiet activity in dim lighting (listening to soft music, reading with a book light - no bright overhead lights). Develop relaxing bedtime routine. Assessment & Plan (12/22/2017 9:40 AM ROUGE SIFTER): Concern for JENNIFER -pt underwent sleep study last night - await results -pulm c/s Assessment & Plan (12/22/2017 6:12 AM ROUGE SIFTER): Pt with concern for JENNIFER. Obese, HTN, bradycardia with Wenckebach ast night. Pt had sleep study overnight. Await results and pulm consultation. Assessment & Plan (12/21/2017 7:00 AM ROUGE SIFTER): Pt with concern for JENNIFER. Obese, HTN, bradycardia with Wenckebach ast night. Order sleep study consultation please. Heart block 12/21/2017 Assessment & Plan (02/28/2018 12:44 PM ROUGE SIFTER): Pt with asymptomatic AV block Currently on carvediolol. Pt with known h.o. Asymptomatic AV block. Would decrease coreg back to 6.25 mg bid as pt was having bradycardia/Wenckebach on the higher dose as outpt. Follow telemetry in hospital Assessment & Plan (12/23/2017 12:48 PM ROUGE SIFTER): Noted to have 2ndHB at night likely 2/2 JENNIFER -coreg decreased -cont telemetry Assessment & Plan (12/23/2017 9:02 AM ROUGE SIFTER): Stable on monitor. Likely exacerbated by JENNIFER untreated. Treat JENNIFER is planned. No indications for pacemaker Assessment & Plan (12/22/2017 9:33 AM ROUGE SIFTER): Noted to have 2ndHB at night likely 2/2 JENNIFER -coreg decreased -cont telemetry Assessment & Plan (12/21/2017 10:06 AM ROUGE SIFTER): Noted to have 2ndHB overnight last night -decrease coreg -R/O sleep apnea -cont telemetry Type 2 diabetes mellitus wit h complication, with long-term current use of insulin 12/21/2017 Overview (02/24/2018): 67 y.o. male with PMH significant for T2DM, chronic renal insufficiency, intermittent heart block, HLD, JENNIFER, essential HTN and moderate to severe aortic stenosis who presented the hospital for pre op preparation for AVR, CABG x 1 (completed on 02/22/18). Diagnosed with T2DM in 2010. T2DM managed by PCP, Dr. Almaraz. HGBA1C 10.1 (H) 02/21/2018 HOME DIABETES REGIMEN: Tresiba U-200, 45-50 units daily Metformin XR 500 mg PO QD Glimepiride 2 mg PO QD Assessment & Plan (03/02/2018 10:04 AM ROUGE SIFTER): The patient has good glycemic control on NPH 44 units BID and HL 15 units TID AC. Discharge is anticipated today. I talked to the patient about discontinuing outpatient glipizide and metformin because of borderline renal function and he agreed. DISCHARGE RECOMMENDATIONS: Tresiba 44 units daily Humalog 15 units TID with meals No glimepiride, metformin (home meds) because of renal insufficiency. He has had diabetes education and can inject insulin. Monitor glucoses QID Follow up with PCP and group underwriter Assessment & Plan (03/01/2018 8:54 AM ROUGE SIFTER): The patient has good glycemic control on NPH 44 units BID and HL 15 units TID AC. Discharge is anticipated tomorrow. Would not change current in-hospital regimen. DISCHARGE RECOMMENDATIONS: Tresiba 44 units daily Humalog 15 units TID with meals No glimepiride, metformin (home meds) because of renal insufficiency. He has had diabetes education and can inject insulin. Monitor glucoses QID Follow up with PCP and group underwriter Assessment & Plan (02/25/2018 10:55 AM ROUGE SIFTER): Glycemic control complicated by post-operative stress, insulin resistance, variable oral intake, and CKD3. Persistently hyperglycemic after initiating 70 units total daily dose yesterday. Needs may change as renal function improves. We will continue to intensely monitor blood glucose and titrate insulin as needed to optimize glycemic control to avoid hypoglycemic/hyperglycemic events. RECOMMENDATIONS: - Increase NPH from 17 units to 25 units with breakfast and dinner - Increase Humalog from 12 units to 17 units TID with meals - Continue high-dose sliding scale QID - Monitor blood glucose QID DISCHARGE RECOMMENDATIONS: - Likely basal/bolus insulin (Tresiba + Humalog or Novolog depending on insurance coverage) - Given his impaired renal function, he would benefit from starting Victoza and discontinuing metformin/glimepiride - Diabetes education and RD education prior to discharge FOLLOW UP: - PCP or group underwriter; need to discuss with patient prior to discharge Recommendations for diabetes management were discussed with the primary team. Assessment & Plan (02/24/2018 6:33 PM ROUGE SIFTER): Glycemic control complicated by post-operative stress, insulin resistance, variable oral intake, and CKD3. Over the previous 24 hours, blood glucose not at goal likely due to discontinuation of insulin gtt prior to basal insulin administration and insufficient insulin dosing. We recommend increasing basal/bolus and correction scale insulin to optimize glycemic control. As he is insulin resistant and required a high dose of insulin post-operatively via the insulin gtt, we will determine the insulin dosing at ~ 0.6 units/kg (NPH 18 units Q 12 hours, humalog 12 units TID with meals and high dose sliding scale insulin QID). We anticipate he may require higher doses of insulin as renal function improves and oral intake increases. We will continue to intensely monitor blood glucose and titrate insulin as needed to optimize glycemic control to avoid hypoglycemic/hyperglycemic events. RECOMMENDATIONS: - Increase NPH from 10 units to 18 units with breakfast and dinner - Increase Humalog from 7 units to 12 units TID with meals - Increase correction scale insulin from mid-dose to high-dose QID - Monitor blood glucose QID DISCHARGE RECOMMENDATIONS: - Likely basal/bolus insulin (Tresiba + Humalog or Novolog depending on insurance coverage) - Given his impaired renal function, he would benefit from starting Victoza and discontinuing metformin/glimepiride - Diabetes education and RD education prior to discharge FOLLOW UP: - PCP or group underwriter; will discuss this with Mr. Love tomorrow to determine his preference Recommendations for diabetes management were discussed with the primary team. For questions regarding this patient today, please call Brisa Burnham NP at [phone]. If after hours, please contact the Diabetes Fellow at [phone]. Assessment & Plan (02/23/2018 11:43 AM ROUGE SIFTER): Glycemic control maintained on Insulin infusion. Patient w/ DM on 2 oral agents and insulin (Pre-op Hgb A1C 10) - Transition to HD SSI and discontinue Insulin infusion - May require basal Insulin in addition, will assess after diet started Assessment & Plan (02/22/2018 4:54 PM ROUGE SIFTER): Arrived from OR on insulin gtt. -continue insulin gtt per ICU protocol -when stable, consider transitioning to SSI Assessment & Plan (03/01/2018 11:10 AM ROUGE SIFTER): A1C 10 on admission BS in better control Endocrine following- no in patient changes today DISCHARGE RECOMMENDATIONS: Tresiba 44 units daily Humalog 15 units TID with meals No glimepiride, metformin (home meds) because of renal insufficiency. He has had diabetes education and can inject insulin. Monitor glucoses QID Follow up with PCP and group underwriter Assessment & Plan (12/23/2017 12:49 PM ROUGE SIFTER): -cont accu checks and lispro SSI -consistent carb diet Assessment & Plan (12/22/2017 9:31 AM ROUGE SIFTER): -cont accu checks and lispro SSI -consistent carb diet Assessment & Plan (12/22/2017 6:11 AM ROUGE SIFTER): Glucose stable overnight. follow Assessment & Plan (12/21/2017 10:36 AM ROUGE SIFTER): Glucose appears well controlled although pt states he was lightheaded overnight similar to hypoglycemia symptoms -will decrease sliding scale to low dose and monitor -DM diet Abnormal EKG 08/15/2017 Aortic stenosis 06/10/2015 Overview (02/21/2018): TTE shows severe Prep for AVR in am Assessment & Plan (02/28/2018 12:51 PM ROUGE SIFTER): S/p AVR with stable valve exam Assessment & Plan (02/22/2018 4:52 PM ROUGE SIFTER): S/p AVR (bio) and CABG X1 ASA CA X1 now ASA and high dose statin QD POD 1 DVT prophylaxis: SCDs, SQH POD1 GI prophylaxis : QD H2 michael Bowel regimen: Docusate/Colace Diet: NPO Glucose control: as outlined PT: To evaluate and treat when pt stable Assessment & Plan (02/26/2018 11:20 AM ROUGE SIFTER): S/p AVR 02/22/2018 Continue post operative care See plan for CABG Assessment & Plan (12/24/2017 6:58 AM ROUGE SIFTER): Pt with severe . The cause of his HFpEF is due to severe , severe HTN, and exacerbated by likely untreated JENNIFER with hypoventilation. Pt saw dr. Gates today and plans for outpt work up to see if TAVR candidate. Pt agrees. Assessment & Plan (12/23/2017 11:59 AM ROUGE SIFTER): -TTE with severe , GRACE: 1.1 cm2, AV Pressure Gradient: Mean: 37, Peak:67 -continue gentle diuresis -plan for R/LHC today as preop eval Assessment & Plan (12/23/2017 9:01 AM ROUGE SIFTER): Pt with severe . The cause of his HFpEF is due to severe , severe HTN, and exacerbated by likely untreated JENNIFER with hypoventilation. Cath today Further discussion later today about options for management, SAVR versus TAVR... Assessment & Plan (12/22/2017 7:01 PM ROUGE SIFTER): Contributes to dyspnea. Rx per cardiology. Assessment & Plan (12/22/2017 9:36 AM ROUGE SIFTER): Last GRACE 1cm2 -TTE with severe , GRACE: 1.1 cm2, AV Pressure Gradient: Mean: 37, Peak:67 -continue gentle diuresis -plan for R/LHC in AM Assessment & Plan (12/22/2017 6:10 AM ROUGE SIFTER): Pt with severe . The cause of his HFpEF is due to severe , severe HTN, and exacerbated by likely untreated JENNIFER with hypoventilation. Diuresis with IV lasix Consult pulmonary for JENNIFER treatement and preop evaluation before AVR. Assessment & Plan (12/21/2017 10:33 AM ROUGE SIFTER): Last GRACE 1cm2 -check echo -gentle diuresis Assessment & Plan (12/21/2017 6:53 AM ROUGE SIFTER): Pt with severe . Plan echo to evaluate , pulm HTN, LV and RVEF. Diuresis with IV lasix Hyperlipidemia 05/07/2014 Overview (02/21/2018): Low fat diet Check FLP Continue Crestor Assessment & Plan (02/25/2018 10:54 AM ROUGE SIFTER): We recommend continuing statin therapy. Assessment & Plan (02/24/2018 6:05 PM ROUGE SIFTER): We recommend continuing statin therapy. Assessment & Plan (02/21/2018 2:16 PM ROUGE SIFTER): Check FLP Low fat diet Continue statin Assessment & Plan (12/23/2017 12:48 PM ROUGE SIFTER): -cont statin Assessment & Plan (12/22/2017 9:27 AM ROUGE SIFTER): -cont statin Assessment & Plan (12/21/2017 10:38 AM ROUGE SIFTER): -cont crestor Essential hypertension 10/30/2013 Overview (02/21/2018): Continue Norvasc, Atenolol, Coreg, Hydralazine Hold Lisinopril for OR Assessment & Plan (02/24/2018 6:06 PM ROUGE SIFTER): Managed per primary team Assessment & Plan (02/22/2018 4:49 PM ROUGE SIFTER): Pt is on 5 antihypertensives at home. Current contributing factors include: inotropic support, pacing faster than intrinsic rhythm, and pain -treat pain as outlined -No FIBREGLASS LAY UP WORKER wean at this time -nicardipine for SBP goal < 140 to protect aortotomy sites Assessment & Plan (03/01/2018 11:13 AM ROUGE SIFTER): Tele shows first degree block, no further 2:[address] Kramer- will continue Coreg at 6.25 and increase Norvasc to 10 mg daily (home dose) Continue q 4 hour VS Assessment & Plan (12/24/2017 6:59 AM ROUGE SIFTER): BPimproved overnight nd likely also leading to exacerbation of HFpEF. Untreated JENNIFER also a factor in HTN. Recommend: Continue present BP meds. F/u bp as outpt. Assessment & Plan (12/23/2017 12:15 PM ROUGE SIFTER): BP above goal -hydralazine increased to 25mg tid, may need to further increase after cath -cont norvasc, losartan and lisinopril -coreg decreased 2/2 bradycardia and heart block Assessment & Plan (12/23/2017 9:03 AM ROUGE SIFTER): BP remains elevated and likely also leading to exacerbation of HFpEF. Untreated JENNIFER also a factor in HTN. Recommend: Further bp meds after cath Assessment & Plan (12/22/2017 9:26 AM ROUGE SIFTER): BP above goal -increase hydralazine to 25mg tid -cont norvasc, losartan and lisinopril -coreg decreased 2/2 bradycardia and heart block Assessment & Plan (12/22/2017 6:12 AM ROUGE SIFTER): BP remains elevated and likely also leading to exacerbation of HFpEF. Recommend: Add hydralazine increase hydralazine to 25 mg tid. Follow bp carefully. JENNIFER evaluation in progress Order UA with dipstick to evaluate for proteinuria. Assessment & Plan (12/21/2017 12:34 PM ROUGE SIFTER): Pt hypertensive -cont norvasc, losartan and lisinopril, add hydralazine -decrease coreg 2/2 bradycardia and heart block Assessment & Plan (12/21/2017 7:00 AM ROUGE SIFTER): Pt with severe overnight. Recommend: Add hydralazine 10 mg tid. Follow bp carefully. JENNIFER evaluation Order UA with dipstick to evaluate for proteinuria. Resolved Problems Problem Noted Date Diagnosed Date Resolved Date Urinary retention 02/26/2018 03/01/2018 High risk medication use 02/24/2018 Assessment & Plan (02/25/2018 10:55 AM ROUGE SIFTER): Intense insulin regimen in the setting of variable PO intake, and CKD3 places patient at increased risk of hypoglycemia. We will continue to intensely monitor blood glucose and titrate insulin as needed to optimize glycemic control to avoid hypoglycemic/hyperglycemic events. Assessment & Plan (02/24/2018 6:02 PM ROUGE SIFTER): Intense insulin regimen in the setting of variable PO intake, and CKD3 places patient at increased risk of hypoglycemia. We will continue to intensely monitor blood glucose and titrate insulin as needed to optimize glycemic control to avoid hypoglycemic/hyperglycemic events. Myocardial stunning 02/22/2018 02/23/19 Assessment & Plan (02/22/2018 4:40 PM ROUGE SIFTER): Anticipated post CPB. Post CPB TINO with normal BiV function on FIBREGLASS LAY UP WORKER 3mcg/kg/min. Underlying rhythm NSR with 1st degree AVB. Arrived with CI 2.1, SVR 1000, CVP 15, and low SVO2 52, PAP 1/3 systemic -increase paced rate to 88 and reshoot thermodilution CO -1u PRBC now per Dr Wade for symptomatic anemia -hold FIBREGLASS LAY UP WORKER at 3mcg/kg/min and consider wean once pt extubated if CI and SVO2 improve with PRBC Acute pulmonary insufficiency 02/22/2018 02/23/2018 Assessment & Plan (02/22/2018 4:45 PM ROUGE SIFTER): Post-procedural short-term ventilatory support with anticipated extubation. Reported to have substantial atelectasis post op and received recruitment maneuvers in OR. CXR with increased atelectasis through out and greatest LLL. ETT 6cm above vipul. Arrived sedated with propofol -advance ETT 2cm -increase PEEP to 7.5 -1u PRBC for symptomatic anemia per dr wade -after PRBC infused, wean propofol to off for PSV trial 10/5/% with intent to extubate -nocturnal Bipap (request family to bring home unit) Dyspnea on exertion 12/22/2017 02/24/19 19 Assessment & Plan (12/22/2017 6:59 PM ROUGE SIFTER): Dyspnea, multifactorial. Associated obesity, physical deconditioning, cardiac disease (and intermittently with pleural effusions and pulmonary edema). See assessment and plan for each of those problems. When cardiac status tuned up, would get complete PFT. Based on PFT and clinical course, would decide if HRCT needed. Hypoventilation associated with obesity 12/22/2017 02/24/2018 Assessment & Plan (02/21/2018 2:20 PM ROUGE SIFTER): Provide CPAP Assessment & Plan (12/22/2017 8:03 PM ROUGE SIFTER): Concern for hypoventilation given hypercapnia noted on most recent ABG. Will check for central hypoventilation on official sleep study report. -See JENNIFER problem. Edema of both lower extremities 12/22/2017 02/24/2018 Overview (12/22/2017): L>R with dependent rubor Assessment & Plan (12/22/2017 6:47 PM ROUGE SIFTER): Asymmetric. Likely secondary to heart failure and renal insufficiency, but would eval for DVT with bilateral lower extremity venous duplex. Agree with cautious gradual diuresis. Dependent rubor 12/22/2017 02/24/2018 Left ventricular diastolic dysfunction 12/22/2017 02/24/2018 Pleural effusion 12/22/2017 02/24/2018 Hypercapnia 12/22/2017 02/24/2018 Overview (12/22/2017): Associated with hypoventilation and obesity, with metabolic compensation. Assessment & Plan (12/22/2017 6:47 PM ROUGE SIFTER): See hypercapnia and hypoventilation problems. 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 Pt also has bradycardia during day--asymptomatic Recommend: Treat JENNIFER Coreg decreased to 3.125 mg bid No indication for pacemaker. Assessment & Plan (12/22/2017 6:11 AM ROUGE SIFTER): Pt with wenckebach type 1 AV block during night, most likely due to obstructive sleep apnea. Pt also has bradycardia during day--asymptomatic Recommend: Sleep study last pm. Coreg decreased to 3.125 mg bid Assessment & Plan (12/21/2017 6:54 AM ROUGE SIFTER): Pt with wenckebach type 1 AV block during night, most likely due to obstructive sleep apnea. Recommend: Sleep study. Decrease coreg to 6.25 mg bid CRI (chronic renal insufficiency) 12/21/2017 02/23/2018 Assessment & Plan (02/21/2018 2:19 PM ROUGE SIFTER): Monitor renal function Adjust diuresis accordingly Hold Lisinopril for OR Assessment & Plan (12/23/2017 12:49 PM ROUGE SIFTER): Stage 3 -creatinine at baseline -cont to monitor Assessment & Plan (12/23/2017 9:02 AM ROUGE SIFTER): Creatinine stable. Will hold IV lasix and f/u bmp s/p cath. Likely change to po diuretics Assessment & Plan (12/22/2017 9:32 AM ROUGE SIFTER): Stage 3 -creatinine at baseline -cont to monitor Assessment & Plan (12/21/2017 10:08 AM ROUGE SIFTER): Stage 3 -creatinine at baseline Acute on chronic diastolic ( congestive) heart failure 12/20/2017 02/24/2018 Assessment & Plan (02/23/2018 11:33 AM ROUGE SIFTER): Intra-op TINO >Diastolic function: grade I dysfunction. Normal biventricular systolic function on Dobutamine and pre-procedure. CI >2.5, SVO2 66% - Wean Dobutamine to 1mcg/kg/min and then discontinue in 4 hours - Negative FB goal w/ Lasix dosing Assessment & Plan (02/21/2018 2:17 PM ROUGE SIFTER): Continue current medical tx including diuresis Assessment & Plan (12/24/2017 6:57 AM ROUGE SIFTER): Pt with likely HFpEf due to , HTN. And exacerbated also by JENNIFER and hypoventilation Improved with diuresis. Plan for d/c today. Lasix 40 mg bid po Daily weights. F/u bp at home Bmp on Wednesday with results to my office. F/u in valve clinic with Dr. Gates. Assessment & Plan (12/23/2017 12:15 PM ROUGE SIFTER): Acute on chronic diastolic HF, EF 70-75%, severe with GRACE 1cm2 -admitted with volume overload, SOB, LE edema -net negative 2.5L, weight down 6.5 kg since admission -cont lasix 40mg IV bid - will hold this AM prior to cath -will likely need to further increase hydralazine after cath -coreg decreased 2/2 bradycardia -cont lisinopril and losartan -PCO2 53,pt underwent sleep study and found to have severe JENNIFER -I&Os, daily weights, telemetry Assessment & Plan (12/23/2017 9:01 AM ROUGE SIFTER): Pt with likely HFpEf due to , HTN. And exacerbated also by JENNIFER and hypoventilation Pt remains hypertensive and we have increased hydralazine dose Echo with severe . Will plan for further evaluation with coronary angiography and right heart cath today Will hold lasix this am. Creatinine 1.4 Recommend: 1. Further eval of 2. Daily bmp; follow I and O--repeat bmp this am 3. Right and left heart cath today. Evaluate PCWP, PA pressure. 4. F/u pulm recommendations for LE dopplers, treat JENNIFER. Will d/w pt about SAVR or potential TAVR after cath Assessment & Plan (12/22/2017 7:03 PM ROUGE SIFTER): Contributes to dyspnea, pleural effusions, and edema. Rx per cardiology. Assessment & Plan (12/22/2017 9:36 AM ROUGE SIFTER): Acute on chronic diastolic HF, EF 70-75%, severe with GRACE 1cm2 -admitted with volume overload, SOB, LE edema -net negative 3.3L, weight down almost 5 kg since admission -cont lasix 40mg IV bid -increase hydralazine for BP control -coreg decreased 2/2 bradycardia -cont lisinopril and losartan -PCO2 53,pt underwent sleep study last night - await results -I&Os, daily weights, telemetry Assessment & Plan (12/22/2017 6:09 AM ROUGE SIFTER): Pt with likely HFpEf due to , HTN. And exacerbated also by JENNIFER and hypoventilation Pt remains hypertensive Echo with severe . Will plan for further evaluation with coronary angiography and right heart cath this admission. F/u bmp first Volume overload Recommend: 1. IV lasix continue 40 mg bid--pending bmp this am 2. Daily bmp; follow I and O--repeat bmp this am 3. Right and left heart cath tomorrow. Evaluate PCWP, PA pressure. Assessment & Plan (12/21/2017 12:33 PM ROUGE SIFTER): Acute on chronic diastolic HT, EF 63%, severe with GRACE 1cm2 -admitted with volume overload, SOB, LE edema -increase IV lasix to 40mg BID -decrease coreg 2/2 bradycardia -add hydralazine for HTN -cont lisinopril and losartan -check echo -PCO2 53, consult sleep medicine, pt being moved to private room for possible sleep study -accurate I&O, monitor on telemetry, daily weights Assessment & Plan (12/21/2017 6:53 AM ROUGE SIFTER): Pt with likely HFpEf due to , HTN. Markedly HTN this am. Volume overload Recommend: 1. IV lasix increase to 40 mg bid 2. Daily bmp; follow I and O 3. Echo to evaluate LVEF., RV, pulm HTN, and severe . Medical History Medical History Date Comments Personal history of other di seases of the circulatory system History of aortic valve sten osis - (Added by TW Conv) Dyspnea on exertion 12/22/2017 Class 3 severe obesity with serious comorbidity in adult 12/22/2017 Hypoventilation associated with obesity 12/23/19 18 Physical deconditioning 12/22/2017 Anemia 12/22/2017 Edema of both lower extremities 12/22/2017 L>R with dependent rubor Dependent rubor 12/22/2017 LVH (left ventricular hypertrophy) 12/22/2017 Left ventricular diastolic dysfunction 8 Enlarged pulmonary artery (HCC) 12/22/2017 Renal insufficiency 12/22/2017 Borderline low oxygen saturation level 8 Family History Medical History Relation Name Comments Heart attack Father Family history of myocardial infarction - (Added by TW Conv) Heart failure Father Family history of heart failure - (Added by TW Conv) Relation Name Status Comments Father Social History Tobacco Use Types Packs/Day Years Used Date Smoking Tobacco: Never Smokeless Tobacco: Never Tobacco Cessation:Counseling Given: Not Answered Alcohol Use Standard Drinks/Week Comments No 0 (1 standard drink = 0.6 oz pur e alcohol) Sex and Gender Information Value Date Recorded Sex Assigned at Not on file Legal Sex Male 6:30 AM ROUGE SIFTER Gender Identity Not on file Sexual Orientation Not on file Last Filed Vital Signs Vital Sign Reading Time Taken Comments Blood Pressure 181/97 04/11/2024 2:05 PM ROUGE SIFTER Pulse 81 04/11/2024 2:05 PM ROUGE SIFTER Temperature 36.7 C (98 F) 10/01/2020 10:30 AM CDT Respiratory Rate 20 03/02/2018 8:19 AM ROUGE SIFTER Oxygen Saturation 96% 04/11/2024 2:05 PM ROUGE SIFTER Inhaled Oxygen Concentration - - Weight 123.6 kg (272 lb 6.4 oz) 04/11/2024 2:05 PM ROUGE SIFTER Height 175.3 cm (5' 9) 04/11/2024 2:05 PM ROUGE SIFTER Body Mass Index 40.23 04/11/2024 2:05 PM ROUGE SIFTER Plan of Treatment Health Maintenance Due Date Last Done Comments Albumin Creatinine Ratio, Urine 1950 Colon Cancer Screening-Colonoscopy 1950 Depression Screening 1950 Fall Risk Assessment 1950 Hepatitis C Screening 1950 Dilated Eye Exam 1950 DTaP/Tdap/Td Vaccine (1 - Tdap) 1961 Hepatitis B Screening 1968 Zoster Vaccine (1 of 2) 2000 Abdominal Aortic Aneurysm (A AA) Screen 04/10/2015 Well Visit 65+ 04/10/2015 Hemoglobin A1C 08/21/2018 02/21/2018 Foot Exam 02/24/2019 02/24/2018 Pneumococcal vaccine 65+ (2 of 2 - PPSV23, PCV20, or PCV21) 04/01/2020 02/05/2020, 01/08/2019, 12/31/2018 eGFR 11/21/2021 11/21/2020, 10/09, 10/10/2020, Additional history exists Influenza Vaccine (#1) 2024 Lipid Panel 04/21/2025 04/21/2024, 10/09, 02/21/2018 Prostate Cancer Screening-PSA Discontinued 10/19/2018 Medical Devices Implanted Type Area Cone Former Device Identifier Shelf Expiration Date Model / Serial / Lot [employer] [id number] Sternalock Aroldo 6 Hole Sternum Hexagon Plate Bone Primary Closure - Sna - [id number] Implanted:Qty: 1 on 02/22/2018 by Anibal Wade MD at [facility] Plate Heart [employer] [id number] / NA / NA Description:Biomet Sternaloc k Aroldo Plating System 6 Hole Hex Plate [employer] [id number] Sternalock Aroldo 2.4mm 20mm Self Drill Lock Sternum Cancellous - Sna - [id number] Implanted:Qty: 6 on 02/22/2018 by Anibal Wade MD at [facility] Screw Heart [employer] [id number] / NA / Description:2.4mm cancellous sd locking screw 20mm Biomet Sternalock Aroldo Sternal Plating System [employer] [id number] Inspiris Resilia Leaflet Sewing Ring 25mm Valve Aortic Bovine - [id number] - [id number] Implanted:Qty: 1 on 02/22/2018 by Anibal Wade MD at [facility] Heart [employer] 09/24/2019 [id number] / [id number] / Procedures Procedure Name Priority Date/Time Associated Diagnosis Comments LIPID PANEL Routine 04/21/2024 10:22 AM CDT Pure hypercholesterolemia BASIC METABOLIC PANEL Routine 11/21/2020 1:59 PM CDT Essential hypertension PSA SCREEN Routine 10/19/2018 10:49 AM CDT HEMOGLOBIN A1C Routine 02/21/2018 1:57 PM ROUGE SIFTER from Last 3 Months or Most Recently Relevant to Health Maintenance Results * Lipid panel (04/21/2024 10:22 AM CDT) [facility] Cholesterol 143 <200 mg/dL [facility] HDL 50 > OR = 40 mg/dL [facility] Triglycerides 83 <150 mg/dL [facility] LDL 76 mg/dL (calc) [facility] Comment: Reference range: <100 Desirable range <100 mg/dL for primary prevention; <70 mg/dL for patients with CHD or diabetic patients with > or = 2 CHD risk factors. LDL-C is now calculated using the Evgeny-Radha calculation, which is a validated novel method providing better accuracy than the Friedewald equation in the estimation of LDL-C. Evgeny SS et al. SURI. 2013;310(19): 4983-8448 (http://education.[employer]/faq/YOF989) Chol/HDL ratio 2.9 <5.0 (calc) [facility] Non-HDL, (LDL+VLDL) 93 <130 mg/dL (calc) [facility] Comment: For patients with diabetes plus 1 major ASCVD risk factor, treating to a non-HDL-C goal of <100 mg/dL (LDL-C of <70 mg/dL) is considered a therapeutic option. Blood 04/21/2024 10:2 2 AM CDT 04/21/2024 10:22 AM CDT Narrative [facility] - 04/22/2024 3:45 AM CDT FASTING:YES FASTING: YES us William Kramer MD LAB BLOOD ORDERABLES F inal Result [facility] [address] [place] [address] * (ABNORMAL) Basic metabolic panel (11/21/2020 1:59 PM CDT) Glucose 108(H) 65 - 99 mg/dL [facility] Comment: Fasting reference interval For someone without known diabetes, a glucose value between 100 and 125 mg/dL is consistent with prediabetes and should be confirmed with a follow-up test. BUN 34(H) 7 - 25 mg/dL [facility] Creatinine 1.41(H) 0.70 - 1.18 mg/dL [facility] Comment: For patients >49 years of age, the reference limit for Creatinine is approximately 13% higher for people identified as -Slovenian. eGFR NON-AFR. SOUTH AFRICAN 50(L) > OR = 60 mL/min/1. 73m2 [facility] EGFR 58(L) > OR = 60 mL/min/1. 73m2 [facility] BUN/creat ratio 24(H) 6 - 22 (calc) [facility] Sodium 141 135 - 146 mmol/L [facility] Potassium, pl 4.3 3.5 - 5.3 mmol/L [facility] Chloride 105 98 - 110 mmol/L [facility] CO2 29 20 - 32 mmol/L [facility] Calcium 9.6 8.6 - 10.3 mg/dL [facility] Blood specimen (specimen) 11/21/2020 1:59 PM CDT 11/21/2020 2:00 PM CDT us William Kramer MD LAB BLOOD ORDERABLES F inal Result [facility] [address] [id number] * PSA screen (10/19/2018 10:49 AM CDT) PSA 1.8 < OR = 4.0 ng/mL [facility] Comment: The total PSA value from this assay system is standardized against the WHO standard. The test result will be approximately 20% lower when compared to the equimolar-standardized total PSA (Daniel Wilber). Comparison of serial PSA results should be interpreted with this fact in mind. This test was performed using the Siemens chemiluminescent method. Values obtained from different assay methods cannot be used interchangeably. PSA levels, regardless of value, should not be interpreted as absolute evidence of the presence or absence of disease. 10/19/2018 10:4 9 AM CDT 10/19/2018 10:52 AM CDT Narrative [facility] - 10/20/2018 6:00 AM CDT FASTING:YES FASTING: YES Resulting Agency Comment Performing Organization Information: Site ID: [id number] Name: [facility] Address: [address] [address] Director: Maxx Henson D.O., MPH William Kramer MD LAB BLOOD ORDERABLES F inal Result [facility] [place] * (ABNORMAL) Hemoglobin A1c (02/21/2018 1:57 PM ROUGE SIFTER) Hgb A1C 10.1(H) 4.0 - 5.6 % [facility] Estimated Average Glucose 243 mg/dL [facility] Comment: The ADA recommends reporting an estimated Average Glucose (eAG) with all Hemoglobin A1c results using the equation derived from a study of 507 normal and diabetic adults. Minority populations were underrepresented and children were not included. (Diabetes Care 31:3018-4198, 2008). The eAG is not equivalent to a fasting glucose. Blood specimen (specimen) 02/21/2018 1:57 PM ROUGE SIFTER 02/21/2018 2:05 PM ROUGE SIFTER Narrative [facility] - 02/21/2018 2:43 PM ROUGE SIFTER us Flako Dixon NP LAB BLOOD ORDERABLES Final Result [facility] Department [place] [address] from Last 3 Months or Most Recently Relevant to Health Maintenance Insurance [facility] MEDICARE [facility] Address[address] [place] [id number] [place] [id number] [facility] MEDICARE ADVANT[facility] Address: [place] [id number] H[address] REF [facility] Address: [address] [address] [place] [address] MEDICARE [facility] MDCR HMO REF [facility] MEDICARE [facility]ANTAGE [facility] MED[facility] Address: [address] [address] [place] [address] Advance Directives For more information, please contact: [phone] * Full Code (Latest Code Status on File) Date Activated Date Inactivated Comments 02/22/2018 3:22 PM 03/02/2018 3:54 PM * Full Code Date Activated Date Inactivated Comments 02/22/2018 3:11 PM 02/22/2018 3:22 PM * Full Code Date Activated Date Inactivated Comments 02/21/2018 1:39 PM 02/22/2018 3:11 PM * Full Code Date Activated Date Inactivated Comments 12/20/2017 5:12 PM 12/24/2017 2:07 PM Care Teams Community Health Nurse Staff Relationship Specialty Start Date End Date Josefa Almaraz MD PCP - General 12/20/17 William Kramer MD Referring Physician Cardiology 02/02/18 Angelica Gardner MD Referring Physician Endocrinology 03/23/19 Jocelyn Charles MD [address] [address] Referring Physician Internal Medicine 04/18/24
--- NOTE | 2024-12-19 17:46 | ED.GENADULT ---
HPI - General Adult General Chief complaint: Urogenital-Male Stated complaint: unable to urinate Time Seen by Provider: 12/19/24 17:29 History of Present Illness HPI narrative: 74-year-old male present to the emergency department for evaluation for urinary retention. Patient did have eye surgery today and does suspect he had a Rico catheter during the procedure. Patient states he has been unable to urinate since procedure. Patient arrives emergency department an distress secondary to urinary retention. Bedside ultrasound did show greater than 900 mL of retained urine. Patient's blood pressures were elevated but he did not have his evening meds and patient states his blood pressure has been elevated all day. Related Data Home Medications ?Medication ?Instructions ?Recorded ?Confirmed ?Last Taken ?Type doxazosin 4 mg tablet 4 mg PO BID 04/19/19 11/30/24 Unknown History hydralazine 50 mg tablet 50 mg PO TID 04/19/19 11/30/24 Unknown History amlodipine 10 mg tablet 10 mg PO DAILY 10/23/19 11/30/24 Unknown History lisinopril 20 mg tablet 20 mg PO BID 05/19/21 11/30/24 Unknown History carvedilol 3.125 mg tablet 3.125 mg PO BID 11/30/24 11/30/24 Unknown History cholecalciferol (vitamin D3) 50 100 mcg PO DAILY 11/30/24 11/30/24 Unknown History mcg (2,000 unit) chewable tablet furosemide 40 mg tablet 40 mg PO DAILY PRN 11/30/24 11/30/24 Unknown History insulin degludec 200 unit/mL (3 45 unit subcut DAILY 11/30/24 11/30/24 Unknown History mL) subcutaneous pen (Tresiba FlexTouch U-200 insulin) rosuvastatin 40 mg tablet 40 mg PO QHS 11/30/24 11/30/24 Unknown History Allergies Allergy/AdvReac Type Severity Reaction Status Date / Time No Known Allergies Allergy Verified 11/30/24 10:19 Review of Systems Review of Systems: All systems reviewed & are unremarkable except as noted in HPI and below PMFSH Past Medical History Medical History Chronic venous insufficiency of lower extremity Chronic kidney disease, stage 3b Vitamin D deficiency History of 2019 CAD in [place] artery IDDM (insulin dependent diabetes mellitus) Nonrheumatic aortic (valve) stenosis 2018 Depression Dyslipidemia Essential (primary) hypertension JENNIFER (obstructive sleep apnea) Diastolic dysfunction Unspecified osteoarthritis, unspecified site Surgical History Surgical History History of cataract surgery 2019 - b/l History of bilateral knee replacement b/l partial - 2010 History of coronary artery bypass graft 02/2018 [place] teeth extracted Hx of aortic valve repair 02/2018 Family History Family History Mother Hypertension Family history of atrial fibrillation Father Family history of cardiovascular disease Social History Social History Second hand tobacco smoke exposure: No Alcohol intake: never Substance use: never Substance use type: does not use Do You Feel Safe in your Home?: Yes Lack of Transportation: No Lack of Food: Never True Current Housing: I Have Housing Concerned About Future Housing: No Difficulty Paying Gas/Electric Bills: No Difficulty Paying for Meds: No Currently Unemployed: No Education: High School Diploma/GED Difficulty w/ Childcare or Family Care: No Living arrangements: alone Gender identity (if verbalized by the patient): Male Spiritual care concerns: No Exam Narrative: APPEARANCE: Uncomfortable appearing initial evaluation improved after Rico catheter placement HEAD: normocephalic, atraumatic. EYES: Normal postop changes for left eye NOSE: Normal no drainage EARS:TMS clear with good light reflex. THROAT: Pharynx clear, no exudate. NECK: Supple. No adenopathy, no masses. RESPIRATORY: Airway patent, respirations nonlabored. Clear to auscultation bilaterally, no rales, rhonchi, wheezing. CARDIOVASCULAR: Regular rate and rhythm without murmurs rubs or gallops. ABDOMINAL: Soft, nontender, nondistended, normal bowel sounds MUSCULOSKELETAL: Moves all extremities. Strength/ROM intact, No edema, No calf tenderness. NEURO: Alert. Cranial nerves II through XII intact. Good gait. Good coordination SKIN: Warm, dry. Normal Color Course Vital Signs Vital signs: Vital Signs Temperature 97.6 F 12/19/24 17:33 Pulse Rate 90 12/19/24 17:33 Respiratory Rate 16 12/19/24 17:33 Blood Pressure 219/115 H 12/19/24 17:33 Pulse Oximetry 97 12/19/24 17:33 Temperature 97.6 F 12/19/24 17:33 Pulse Rate 66 12/19/24 19:49 Respiratory Rate 16 12/19/24 19:49 Blood Pressure 170/88 H 12/19/24 19:49 Pulse Oximetry 99 12/19/24 19:49 Medical Decision Making MDM Narrative Medical decision making narrative: [age] old male presents emergency department for evaluation for urinary retention after having a surgical procedure this morning. Patient did have greater than 900 mL of retained urine on the bedside bladder scan. Her after placement of Rico catheter patient did have significant relief and felt improved. Patient had approximately 900 mL of urinary output. Patient does not take anything for urinary retention. Patient will be started on of Flomax. First dose was given in the emergency department. Patient did have elevated blood pressure at the time of evaluation and he was given his evening doses of lisinopril, hydralazine, carvedilol and doxazosin. Patient and family were updated the results of the treatment plan and and planned to have close follow-up with Urology. All questions concerns were addressed patient was improved at time of discharge. Differential Diagnosis Differential Diagnosis: Hypertension, urinary tract infection, urinary retention Vital Signs Vital Signs: Vital Signs Temperature 97.6 F 12/19/24 17:33 Pulse Rate 90 12/19/24 17:33 Respiratory Rate 16 12/19/24 17:33 Blood Pressure 219/115 H 12/19/24 17:33 Pulse Oximetry 97 12/19/24 17:33 Temperature 97.6 F 12/19/24 17:33 Pulse Rate 66 12/19/24 19:49 Respiratory Rate 16 12/19/24 19:49 Blood Pressure 170/88 H 12/19/24 19:49 Pulse Oximetry 99 12/19/24 19:49 Discharge Plan Discharge Clinical Impression: Hypertension, Acute urinary retention Patient Disposition: Home Condition: Stable Instructions: Antibiotic Form, Urinary Retention in Men (ED), Rico Catheter Placement and Care (ED) Additional Instructions: Rico catheter care as directed. Flomax as directed. Have close follow-up with Urology. If you have any worsening symptoms then please call or return to the emergency department. Patient Language: Sami Prescriptions: New tamsulosin [Flomax] 0.4 mg capsule 0.4 mg PO DAILY 14 Days Qty: 14 0RF No Action doxazosin 4 mg tablet 4 mg PO BID hydralazine 50 mg tablet 50 mg PO TID lisinopril 20 mg tablet 20 mg PO BID furosemide 40 mg tablet 40 mg PO DAILY PRN amlodipine 10 mg tablet 10 mg PO DAILY carvedilol 3.125 mg tablet 3.125 mg PO BID insulin degludec [Tresiba FlexTouch U-200] 200 unit/mL (3 mL) insulin pen 45 unit SUB-Q DAILY cholecalciferol (vitamin D3) 50 mcg (2,000 unit) tablet,chewable 100 mcg PO DAILY Ozempic 2 mg/dose (8 mg/3 mL) pen injector 2 mg subcut WEEKLY Qty: 9 1RF MediHoney (honey) 100 % paste 1 applic topical DAILY PRN (Reason: wound healing) Qty: 103 1RF insulin lispro 200 unit/mL (3 mL) insulin pen See Rx Instructions .ROUTE .COMPLEX MDD 50 Qty: 24 2RF Rx Instructions: 5 units before breakfast -15 units before lunch -15 before dinner + SSI 200-250: 2 units 251-300: 3 units 301-350: 4 units 351-400:5 units; dapagliflozin propanediol [Farxiga] 10 mg tablet 10 mg PO QAM Qty: 90 4RF Rx Instructions: AZ&ME rosuvastatin 40 mg tablet 40 mg PO QHS Follow-up/Referrals: Geovany Matamoros MD [Physician, Urology] Lily Almaraz MD [Primary Care Provider, Family Practice]
[2024-12-19] MEDS: DOXAZOSIN MESYLATE 4 MG TABLET PO (18:16)
--- NOTE | 2024-12-19 18:29 | ECG_ITS ---
Test Date: 2024-12-19 18:38:46 Measurements Intervals [place] Rate: 73 P: 54 FL: 271 QRS: -19 QRSD: 110 T: 137 QT: 323 QTc: 358 Interpretive Statements SINUS RHYTHM WITH FIRST DEGREE AV BLOCK WITH FREQUENT SUPRAVENTRICULAR PREMATURE COMPLEXES INFERIOR INFARCT, AGE INDETERMINATE No previous ECG available for comparison Electronically Signed On 12-19-2024 21:12:58 [employer] by Bret Livingston M.D.
[2024-12-19] MEDS: TAMSULOSIN HCL 0.4 MG CAPSULE PO (18:34)
--- NOTE | 2024-12-19 19:19 | PC.NURSE ---
This tech changed standard catheter bag to leg bag and educated family member and pt on how to drain. Pt also given extra stat lock, 2000cc u-bag, and leg bag.
== END 2024-12-19 19:50 | disposition home or self-care (01) ==
PROVIDERS: Emergency Provider Emergency Medicine; PCP Family Medicine
DX: N99.89 Other postprocedural complications and disorders of genitourinary system (principal); R33.9 Retention of urine, unspecified; I12.9 Hypertensive chronic kidney disease with stage 1 through stage 4 chronic kidney disease, or unspecified chronic kidney disease; E11.22 Type 2 diabetes mellitus with diabetic chronic kidney disease; N18.32 Chronic kidney disease, stage 3b; I87.2 Venous insufficiency (chronic) (peripheral); I25.10 Atherosclerotic heart disease of native coronary artery without angina pectoris; I35.0 Nonrheumatic aortic (valve) stenosis; E78.5 Hyperlipidemia, unspecified; E55.9 Vitamin D deficiency, unspecified; G47.33 Obstructive sleep apnea (adult) (pediatric); M19.90 Unspecified osteoarthritis, unspecified site; Z95.1 Presence of aortocoronary bypass graft; Z96.653 Presence of artificial knee joint, bilateral; Z86.16 Personal history of COVID-19; Z98.42 Cataract extraction status, left eye; Z98.41 Cataract extraction status, right eye; Y83.8 Other surgical procedures as the cause of abnormal reaction of the patient, or of later complication, without mention of misadventure at the time of the procedure; Z79.899 Other long term (current) drug therapy; Z79.85 Long-term (current) use of injectable non-insulin antidiabetic drugs; Z79.4 Long term (current) use of insulin; I44.0 Atrioventricular block, first degree; I49.1 Atrial premature depolarization; R94.31 Abnormal electrocardiogram [ECG] [EKG]
CPT/HCPCS: 51702; 93005; 99283; A9270

== ENCOUNTER 2024-12-28 03:13 | Emergency (ER) | payer MEDICARE, SELFPAY ==
[2024-12-28 03:18] VITALS: BP 222/128; PULSE 102; RESP 26; TEMP 36.4; O2SAT 97
--- NOTE | 2024-12-28 03:46 | ED.MALEGU ---
HPI - Male Genitourinary General Chief complaint: Urogenital-Male Stated complaint: I need a catheter put back in Time Seen by Provider: 12/28/24 03:39 Source: patient Mode of arrival: ambulatory Limitations: no limitations History of Present Illness HPI Narrative: This is a 74-year-old male with history of CKD, diabetes, hypertension hyperlipidemia, CAD who presents the ED for urinary retention. Patient states that last week he had an eye surgery and after the surgery he had difficulty urinating so Rico catheter was placed. He had this Rico catheter removed yesterday evening and was apparently able to void after that but since 830 he has not been able to void. Related Data Home Medications ?Medication ?Instructions ?Recorded ?Confirmed ?Last Taken ?Type doxazosin 4 mg tablet 4 mg PO BID 04/19/19 11/30/24 Unknown History hydralazine 50 mg tablet 50 mg PO TID 04/19/19 11/30/24 Unknown History amlodipine 10 mg tablet 10 mg PO DAILY 10/23/19 11/30/24 Unknown History lisinopril 20 mg tablet 20 mg PO BID 05/19/21 11/30/24 Unknown History carvedilol 3.125 mg tablet 3.125 mg PO BID 11/30/24 11/30/24 Unknown History cholecalciferol (vitamin D3) 50 100 mcg PO DAILY 11/30/24 11/30/24 Unknown History mcg (2,000 unit) chewable tablet furosemide 40 mg tablet 40 mg PO DAILY PRN 11/30/24 11/30/24 Unknown History insulin degludec 200 unit/mL (3 45 unit subcut DAILY 11/30/24 11/30/24 Unknown History mL) subcutaneous pen (Tresiba FlexTouch U-200 insulin) rosuvastatin 40 mg tablet 40 mg PO QHS 11/30/24 11/30/24 Unknown History Allergies Allergy/AdvReac Type Severity Reaction Status Date / Time No Known Allergies Allergy Verified 12/28/24 03:14 Review of Systems Review of Systems: Gen.: Denies fevers or chills Eyes: Denies eye pain or visual change ENT: Denies congestion Respiratory: Denies shortness of breath or cough CV: Denies chest pain or palpitations GI: Denies abdominal pain nausea, emesis or diarrhea as per HPI Musculoskeletal: Denies back pain or muscle pain Neuro: Denies numbness, tingling, weakness or focal weakness Skin: Denies rash Except as documented, all other systems reviewed and negative [facility] Past Medical History Medical History Chronic venous insufficiency of lower extremity Chronic kidney disease, stage 3b Vitamin D deficiency History of COVID-19 2019 CAD in [place] artery IDDM (insulin dependent diabetes mellitus) Nonrheumatic aortic (valve) stenosis 2017 Depression Dyslipidemia Essential (primary) hypertension JENNIFER (obstructive sleep apnea) Diastolic dysfunction Unspecified osteoarthritis, unspecified site Surgical History Surgical History History of cataract surgery 2019 - b/l History of bilateral knee replacement b/l partial - 2010 History of coronary artery bypass graft 02/2018 [place] teeth extracted Hx of aortic valve repair 02/2018 Family History Family History Mother Hypertension Family history of atrial fibrillation Father Family history of cardiovascular disease Social History Social History Smoking status: Never smoker Second hand tobacco smoke exposure: No Alcohol intake: never Substance use: never Substance use type: does not use Do You Feel Safe in your Home?: Yes Lack of Transportation: No Lack of Food: Never True Current Housing: I Have Housing Concerned About Future Housing: No Difficulty Paying Gas/Electric Bills: No Difficulty Paying for Meds: No Currently Unemployed: No Education: High School Diploma/GED Difficulty w/ Childcare or Family Care: No Living arrangements: alone Gender identity (if verbalized by the patient): Male Spiritual care concerns: No Exam Narrative: APPEARANCE: Mild distress, nontoxic, resting in bed EYES: EOMI HEENT: Normocephalic, atraumatic, OMM RESPIRATORY: No respiratory distress Clear to auscultation bilaterally with no rhonchi wheezing or rales. CARDIOVASCULAR: Regular rate and rhythm without murmurs rubs or gallops. ABDOMINAL: Soft, suprapubic tenderness to palpation, nondistended, no rebound or guarding MUSCULOSKELETAl: Moves all extremities. No clubbing, cyanosis or edema. NEURO: Awake and alert. Following commands, speech normal, no focal deficits SKIN:: Warm, dry. No rashes lesions or abrasions PSYCHIATRIC: Normal affect/mood, Course Vital Signs Vital signs: Vital Signs Temperature 97.6 F 12/28/24 03:18 Pulse Rate 102 H 12/28/24 03:18 Respiratory Rate 26 H 12/28/24 03:18 Blood Pressure 222/128 H 12/28/24 03:18 Pulse Oximetry 97 12/28/24 03:18 Oxygen Delivery Room Air 12/28/24 03:18 Temperature 97.6 F 12/28/24 03:18 Pulse Rate 69 12/28/24 05:01 Respiratory Rate 18 12/28/24 05:01 Blood Pressure 144/87 H 12/28/24 05:01 Pulse Oximetry 96 12/28/24 05:01 Oxygen Delivery Room Air 12/28/24 03:18 MDM - Male Genitourinary MDM Narrative Medical decision making narrative: 74-year-old male Presenting for urinary retention. On initial evaluation patient was in mild distress afebrile, hemodynamic stable. Differentials include but are not limited to: Urinary retention, hematuria, kidney stone Notable exam findings: Tenderness to the suprapubic abdomen Bladder scan obtained which showed greater than 600 cc of urine. Rico catheter was placed and had immediate return of hematuria. This was able to continue to be drained there was no evidence of clots. UA showed no UTI. He does not require CBI at this time. He was advised to return to his urologist in the next couple days for re-evaluation and possible cystoscopy given the hematuria. Patient and family were agreeable to this plan. Given strict return precautions. Medical Records Attestation: I reviewed the patient's medical records. Lab Data Attestation: I reviewed the patient's lab results. Labs: Lab Results 12/28/24 Range/Units 04:21 Urine Color Red H (Yellow) Urine Appearance Sl cloudy (Clear) Urine pH 6.0 (5.0-9.0) Ur Specific [place] 1.015 (1.001-1.035) Urine Protein 3+ H (Negative) mg/dL Urine Glucose (UA) 4+ H (Negative) mg/dL Urine Ketones Negative (Negative) mg/dL Ur Blood (Man) 4+ H (Negative) Urine Nitrate Negative (Negative) Urine Bilirubin Negative (Negative) Urine Urobilinogen 0.2 (<2.0) mg/dL Leukocyte Esterase Rfl Negative (Negative) GINI/UL Urine RBC >100 H (0-2) /hpf Urine WBC 0-5 (0-3) /hpf Urine Bacteria None seen (None) /hpf Discharge Plan Discharge Clinical Impression: Acute urinary retention, Gross hematuria Patient Disposition: Home Condition: Stable Instructions: Antibiotic Form, Rico Catheter Placement and Care (ED), Hematuria (ED) Additional Instructions: Keep Rico catheter in place for at least 2 days, follow-up with Dr. Ricardo's office in the next day or so for re-evaluation. Return to the ED for new or worsening symptoms. Patient Language: Korean Prescriptions: No Action doxazosin 4 mg tablet 4 mg PO BID hydralazine 50 mg tablet 50 mg PO TID lisinopril 20 mg tablet 20 mg PO BID furosemide 40 mg tablet 40 mg PO DAILY PRN amlodipine 10 mg tablet 10 mg PO DAILY carvedilol 3.125 mg tablet 3.125 mg PO BID insulin degludec [Tresiba FlexTouch U-200] 200 unit/mL (3 mL) insulin pen 45 unit SUB-Q DAILY cholecalciferol (vitamin D3) 50 mcg (2,000 unit) tablet,chewable 100 mcg PO DAILY Ozempic 2 mg/dose (8 mg/3 mL) pen injector 2 mg subcut WEEKLY Qty: 9 1RF MediHoney (honey) 100 % paste 1 applic topical DAILY PRN (Reason: wound healing) Qty: 103 1RF insulin lispro 200 unit/mL (3 mL) insulin pen See Rx Instructions .ROUTE .COMPLEX MDD 50 Qty: 24 2RF Rx Instructions: 5 units before breakfast -15 units before lunch -15 before dinner + SSI 200-250: 2 units 251-300: 3 units 301-350: 4 units 351-400:5 units; tamsulosin [Flomax] 0.4 mg capsule 0.4 mg PO DAILY 14 Days Qty: 14 0RF dapagliflozin propanediol [Farxiga] 10 mg tablet 10 mg PO QAM Qty: 90 4RF Rx Instructions: AZ&ME rosuvastatin 40 mg tablet 40 mg PO QHS Follow-up/Referrals: Lily Almaraz MD [Primary Care Provider, Family Practice]
--- OUTSIDE RECORDS SUMMARY | 2024-12-28 03:47 | XMS_ITS | Clinical Summary ---
Author Organization [facility] Address [address] [address] Phone Care Team Providers Care Obstetrics Gynecology Md Name Role Phone Josefa Almaraz MD Primary Care Provider Allergies No known active allergies Medications amLODIPine (NORVASC) 10 MG tablet Take 10 mg by mouth 1 (one) time each day 0 Active aspirin EC 81 MG EC tablet Take 81 mg by mouth daily 9 Active doxazosin (CARDURA) 4 MG tablet Take 4 mg by mouth 2 (two) times a day 0 Active furosemide (LASIX) 40 MG tablet Take 40 mg by mouth 2 (two) times a day 0 Active hydrALAZINE (APRESOLINE) 50 MG tablet Take 50 mg by mouth 3 (three) times a day 0 Active Tresiba FlexTouch 200 UNIT/ML injection INJECT 45 UNITS SUBCUTANEOUSLY AT BEDTIME 0 Active Insulin Lispro, 1 Unit Dial, 100 UNIT/ML solution pen-injector insulin lispro (U-100) 100 unit/mL subcutaneous pen INJECT 15 UNITS SUBCUTANEOUSLY THREE TIMES DAILY WITH MEALS Active B-D ULTRAFINE III SHORT PEN 31G X 8 MM misc USE DIRECTED UP TO THREE TIMES DAILY 0 Active lisinopril (PRINIVIL) 20 MG tablet Take 20 mg by mouth 2 (two) times a day 0 Active rosuvastatin (CRESTOR) 40 MG tablet Take 40 mg by mouth 1 (one) time each day 0 Active spironolactone (ALDACTONE) 25 MG tablet 1 Active carvedilol (COREG) 3.125 MG tablet Take 3.125 mg by mouth 2 (two) times a day with meals 1 Active Glucagon (Gvoke HypoPen 2-Pack) 1 MG/0.2ML solution auto-injector 1 mg Active timolol (TIMOPTIC) 0.5 % ophthalmic solution 2 Active Trulicity 3 MG/0.5ML solution pen-injector 2 Active Active Problems Problem Noted Date Diagnosed Date Congestive heart failure 02/05/2020 Hyperlipidemia 06/02/2019 Hypertensive disorder 04/11/2018 Type 2 diabetes mellitus 04/11/2018 Stage 3a chronic kidney disease 02/23/2018 Overview (01/22/2020): Last Assessment & Plan: Creatinine down a bit to 2.0 today. CKD3 in the setting of intense insulin regimen, insulin resistance, post-operative stress, and variable oral intake places patient at increased risk of hypoglycemia due to the decreased clearance of insulin. We will continue to intensely monitor blood glucose and titrate insulin as needed to optimize glycemic control to avoid hypoglycemic/hyperglycemic events. Coronary arteriosclerosis 02/16/2018 Overview (01/22/2020): Added automatically from request for surgery [id number] Last Assessment & Plan: S/p cabg x 1 vessel for OMB stenosis. EKG with Q 3, avF without change c/w preop 01/17/18 Continue asa, statin Anemia 12/22/2017 Overview (01/22/2020): Last Assessment & Plan: Acute blood loss anemia H/H stable Will monitor with daily CBC Obstructive sleep apnea 12/21/2017 Overview (01/22/2020): Continue CPAP Last Assessment & Plan: Patient utilizes CPAP at home, currently on Opti- flow to maintain SPO2 >92% - Discontinue Opti- flow and add nasal cannula - OOB/PT and encourage IS for atelectasis Aortic valve stenosis 06/10/2015 Overview (01/22/2020): TTE shows severe Prep for AVR in am Last Assessment & Plan: S/p AVR with stable valve exam Immunizations Immunization Administration Dates Next Due Influenza TIV (IM) 04/23/2021(Deferred: Patient Refused) Pneumococcal Conjugate 01/08/2019 Pneumococcal, Unspecified 02/05/2020 Family History Medical History Relation Comments Kidney disease Neg Hx Social History Tobacco Use Types Packs/Day Years Used Date Smoking Tobacco: Never Smokeless Tobacco: Never Alcohol Use Standard Drinks/Week Comments Not Currently 0 (1 standard drink = 0.6 oz pur e alcohol) Sex and Gender Information Value Date Recorded Sex Assigned at Not on file Legal Sex Male 11:44 AM MDT Gender Identity Not on file Sexual Orientation Not on file Last Filed Vital Signs Vital Sign Reading Time Taken Comments Blood Pressure 150/70 10/29/2021 10:30 AM CDT Pulse 72 10/29/2021 10:30 AM CDT Temperature 36.6 C (97.8 F) 10/29/2021 10:30 AM CDT Respiratory Rate - - Oxygen Saturation - - Inhaled Oxygen Concentration - - Weight 120 kg (264 lb) 10/29/2021 10:30 AM CDT Height 175.3 cm (5' 9) 10/29/2021 10:30 AM CDT Body Mass Index 38.99 10/29/2021 10:30 AM CDT Plan of Treatment Health Maintenance Due Date Last Done Comments Pneumococcal PPSV23/PCV13 65 + Years / Low and Medium Risk (1 of 2 - PCV) 2000 Influenza Vaccine (#1) [address] [facility] MEDICARE Care Teams Obstetrics Gynecology Md Relationship Specialty Start Date End Date Josefa Almaraz MD [address] [place] [address] PCP - General Internal Medicine 12/05/19
--- OUTSIDE RECORDS SUMMARY | 2024-12-28 03:47 | XMS_ITS | Encounter Summary ---
Author Organization [facility] Address [address] [place] [address] Care Team Providers Care Commissary Worker Name Role Phone Josefa Almaraz MD Primary Care Provider William Kramer MD Unavailable [phone] Angelica Gardenr MD Unavailable [phone] Jocelyn Charles MD Unavailable [phone] Encounter Details Date Type Department Care Team (Late st Contact Info) Description 02/22/2018 Documentation [facility] Case Management [address] [place] [address] Zhao Duran RN Social History Tobacco Use Types Packs/Day Years Used Date Smoking Tobacco: Never Smokeless Tobacco: Never Alcohol Use Standard Drinks/Week Comments No 0 (1 standard drink = 0.6 oz pur e alcohol) Sex and Gender Information Value Date Recorded Sex Assigned at Not on file 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 [employer] Gender Identity Not on file Sexual Orientation Not on file documented as of this encounter Functional Status * Question Answer Date of Assessment Author MAP (mmHg) 92 02/25/2018 7:00 PM Dinah Zee RN * Nolan Fall Risk Question Answer Date of Assessment Author History of Falling 0 02/25/2018 7:00 PM Dinah Zee RN Secondary Diagnosis 15 02/25/2018 7:00 PM CS Dinah Harrison, dressing machine operator Aids 0 02/25/2018 7:00 PM Dinah Mccoy RN Intravenous Therapy/Heparin/Saline Lock 20 02/25/2018 7:00 PM Adriane Zee RN Gait/Transferring 0 02/25/2018 7:00 PM Dinah Zee RN Mental Status 0 02/25/2018 7:00 PM Dinah Zee RN * Riley Scale Question Answer Date of Assessment Author Sensory Perceptions 4 02/25/2018 7:00 PM CS T Dinah Fonseca RN Moisture 4 02/25/2018 7:00 PM Dinah Zee RN Activity 3 02/25/2018 7:00 PM Dinah Zee RN Mobility 3 02/25/2018 7:00 PM Dinah Zee RN Nutrition 3 02/25/2018 7:00 PM Dinah Zee RN Friction and Shear 3 02/25/2018 7:00 PM Dinah Zee RN Riley Scale Score 20 02/25/2018 7:00 PM Dinah Zee RN * Question Answer Date of Assessment Author BP Location Right arm 02/25/2018 10:51 PM Tina Schmitz BP Method Automatic 02/25/2018 10:51 PM Tina Schmitz * Question Answer Date of Assessment Author Arterial Line MAP (mmHg) 79 02/23/2018 9:00 AM Maria T Mcadams RN Arterial Line BP 143/58 02/23/2018 9:00 AM Maria T Juares RN * Fall Risk Interventions Question Answer Date of Assessment Author All Low Fall Interventions Applied Yes 02/25/2018 7:00 PM Dinah Zee RN All Moderate Fall Interventions Applied No 02/25/2018 7:00 PM Dinah Zee RN All Moderate Fall Risk Interventions EXCEPT: Gait belt at bedside 02/25/2018 7:00 PM Dinah Zee RN All High Fall Risk Interventions Applied No 02/25/2018 7:00 PM Dinah Zee RN All High Risk Interventions EXCEPT: Bed alarm;Chair alarm 02/25/2018 7:00 PM Dinah Zee RN Additional Interventions Applied Over-bed table on non-exit side;Exit bed on strong/preferred side 02/24/2018 7:41 PM Jayce Jasmine, YANNA Reason For Exception(s) sternal precautions 02/08 7:00 PM Dinah Zee RN Reason For Exception(s) bmat 4 02/25/19 19 7:00 PM Dinah Zee, YANNA * Question Answer Date of Assessment Author PT Functional Mobility Pt agreeable to treatment 02/24/2018 9:23 AM Con Cordon PTA * B.M.A.T. - Bedside Mobility Assessment Tool for Nurses Question Answer Date of Assessment Author Is patient able to participate in the BMAT? Yes 02/25/2018 7:00 PM Dinah Zee RN BMAT Level Level 4 - Green 02/25/2018 7:00 PM Dinah Mccoy RN Level 3 Equipment Use assistive device such as cane/walker 02/23/2018 12:00 PM Maria T Mcadams RN * Integumentary Question Answer Date of Assessment Author Skin Color Appropriate for ethnicity 02/25/2018 7:00 PM Dinah Zee RN Skin Condition/Temp Warm;Dry 02/25/2018 7 :00 PM Dinah Zee, YANNA Skin Integrity Surgical incision 02/25/2018 7:0 0 PM Dinah Zee, YANNA Skin Turgor Non-tenting 02/25/2018 7:00 PM Dinah Zee RN Integumentary Additional Assessments Yes-Riley 02/25/2018 7:00 PM Dinah Zee RN Integumentary (WDL) X 02/25/2018 7 :00 PM Dinah Zee RN Skin Location see LDAs 02/23/2018 7:36 PM Jayce Jasmine, YANNA * Question Answer Date of Assessment Author Edema +1 02/25/2018 7:00 PM Dinah Zee, YANNA RLE Edema +1 02/25/2018 8:24 AM Indiana Collins RN LLE Edema +1 02/25/2018 8:24 AM Indiana Collins RN Edema Generalized 02/24/2018 7:39 PM Jayce Liu, YANNA * Question Answer Date of Assessment Author Percent Snack Eaten (%) 0 02/24/2018 6:00 P M Tran Frazier, YANNA * Question Answer Date of Assessment Author BP Location Right arm 02/25/2018 10:51 PM Tina Schmitz BP Method Automatic 02/25/2018 10:51 PM MACHINE CELL TUBER Tina Gamble * Question Answer Date of Assessment Author Bed In Lowest Position Yes 02/25/2018 11:15 P M Dinah Zee, YANNA Bed Wheels Locked Yes 02/25/2018 11:15 PM Dinah Zee RN * Fall Risk Interventions Question Answer Date of Assessment Author All Low Fall Interventions Applied Yes 02/25/2018 7:00 PM Dinah Zee RN All Moderate Fall Interventions Applied No 02/25/2018 7:00 PM Dinah Zee RN All Moderate Fall Risk Interventions EXCEPT: Gait belt at bedside 02/25/2018 7:00 PM Dinah Zee RN All High Fall Risk Interventions Applied No 02/25/2018 7:00 PM Dinah Zee RN All High Risk Interventions EXCEPT: Bed alarm;Chair alarm 02/25/2018 7:00 PM Dinah Zee RN Additional Interventions Applied Over-bed table on non-exit side;Exit bed on strong/preferred side 02/24/2018 7:41 PM Jayce Jasmine, YANNA Reason For Exception(s) sternal precautions 02/08 7:00 PM Dinah Zee, YANNA Reason For Exception(s) bmat 4 02/25/19 19 7:00 PM Dinah Zee, YANNA * Question Answer Date of Assessment Author Skin Care Skin cleanser 02/22/2018 4:00 PM Judie Moreno RN Hygiene Rico care 02/25/2018 8:00 PM Dinah Zee, YANNA Oral Care Mouth moisturizer 02/23/2018 12:00 PM Maria T Mcadams, YANNA Hygiene Level of Assistance Minimal assist 02/23/2018 12:00 PM Maria T Mcadams, RN * RN Oversight of Sitter Question Answer Date of Assessment Author Sitter Not indicated 02/25/2018 10:52 PM Tina Shrestha * Nutrition Question Answer Date of Assessment Author Percent Meal Eaten (%) 100 02/25/2018 1:06 PM Indiana Collins RN Feeding Level of Assistance Able to feed self 02/25/2018 1:06 PM Indiana Collins RN Appetite Good 02/25/2018 1:06 PM Indiana Collins RN documented as of this encounter Mental Status * Question Answer Entry Date Author Level of Consciousness Alert;Awake 9 7:00 PM Dinah Zee RN Orientation Oriented X4 (person, place, time, situation) 02/25/2018 7:00 PM Dinah Zee RN * Question Answer Entry Date Author Neuro (WDL) WDL 02/25/2018 7:00 PM Dinah Zee RN * Neuro (WDL) Answer Entry Date Author WDL 02/22/2018 6:31 AM Lesa Bergeron RN documented in this encounter Plan of Treatment Not on file documented as of this encounter Visit Diagnoses Not on filedocumented in this encounter Care Teams Commissary Worker Relationship Specialty Start Date End Date Josefa Almaraz MD PCP - General 12/20/17 William Kramer MD Referring Physician Cardiology 02/02/18 Angelica Gardner MD Referring Physician Endocrinology 03/23/19 Jocelyn Charles MD [address] [address] (work) Referring Physician Internal Medicine 04/18/24 documented as of this encounter
--- OUTSIDE RECORDS SUMMARY | 2024-12-28 03:47 | XMS_ITS | Clinical Summary ---
Author Organization [facility] Address [address] [place] [id number] Care Team Providers Care Marketing Secretary Name Role Phone Unavailable Primary Care Provider [...] patient's age to complete this topic Insurance [facility] MEDICARE
--- OUTSIDE RECORDS SUMMARY | 2024-12-28 03:47 | XMS_ITS | Data Portability ---
Author Organization [place] - [facility], Main Office Address [address] [place] [address] Assessment No assessment recorded. Plan of Treatment Reminders Order Date Submit Date Provider Last Modified By Organization Details Last Modified Time Details Appointments None recorded. Lab lipid panel, serum 2022 023 [facility], [address], [address], [place], [address], 3 14:44:24 CMP, serum or plasma 2022 023 [facility], [address], [address], [place], [address], 3 14:06:46 HbA1c (hemoglobin A1c), blood 2022 023 [facility], [address], [place], [address], 3 14:44:23 CMP, serum or plasma 2022 023 [facility], [address], [place], [address], 3 01:12:27 microalbumi n/creatinin e, mass ratio, urine 2022 023 [facility], [address], [place], [address], 3 14:44:22 Referral endocrinolo gy referral 2022 023 [email or web address] 1 Jocelyn Charles MD, [address],, [facility], [place], [address], 3 12:59:26 Procedures None recorded. Surgeries None recorded. Imaging None recorded. Medication Orders Kerendia 10 mg tablet 2022 023 [facility], [address] [facility] [address], [place], [address], 3 12:48:26 Patient TargetsNo targets recorded. Patient [...] CLIEN T SERVI JANE. PHONE NUMBE R: [phone] Not Available [facility] [address], [place], [address], 11/20/2020 17:41:22 11/21/19 21 11/20/2020 TSH TSH 1.64 mIU/L 0.40-4 .50 normal Not Available [address], [address], 11/20/2020 17:41:21 11/21/19 21 11/20/2020 T4, FREE T4, free 1.2 NG/dL 0.8-1. 8 normal Not Available [address], [address], 11/20/2020 17:41:21 11/21/19 21 11/20/2020 CLIEN T [...] the physi jay jay name. Not Available [address], [address], 11/20/2020 17:41:20 11/21/19 21 11/20/2020 EXTRA URINE SPECI MEN extra urine specimen Not Available [address], [address], 11/20/2020 17:41:20 11/21/19 21 11/20/2020 EXTRA URINE [...] to speci men stabi lity. Not Available [address] [address] [place], [address], 11/20/2020 17:41:20 11/21/19 21 11/20/2020 ALBUM IN, RANDO M URINE W/CRE ATINI NE creatinine, random urine 21 mg/dL 20-320 normal Not Available [address] [address] [place], [address], 11/20/2020 17:41:19 11/21/19 21 11/20/2020 ALBUM IN, RANDO M URINE W/CRE ATINI NE albumin, urine 24.0 mg/dL see note: normal Refer ence Range : Refer ence Range Not estab lishe d Not Available [address] [address] , [place], [address], 11/20/2020 17:41:19 11/21/1911/20/2020 ALBUM IN, RANDO M [...] a diagn ostic categ ory. Not Available [address], [address], 11/20/2020 17:41:19 11/21/19 21 11/20/2020 COMPR EHENS FREDO METAB OLIC PANEL glucose 134 mg/dL 65-99 high Fasti ng refer ence inter flaco For someo ne witho ut known diabe zonia, a gluco se value >125 mg/dL indic ates that they may have diabe zonia and this shoul d be confi rmed with a follo w-up test. Not Available [address], [address], 11/20/2020 17:41:18 11/21/19 21 11/20/2020 COMPR EHENS FREDO METAB OLIC PANEL urea nitrogen (BUN) 31 mg/dL 7-25 high Not Available [facility] [address], [address], 11/20/2020 17:41:18 11/21/19 21 11/20/2020 COMPR EHENS FREDO METAB OLIC PANEL creatinine 1.27 mg/dL 0.70-1 .18 high For patie nts >49 years of age, the refer ence limit for Creat inine is appro ximat alecia 13% highe r for peopl e ident ified as Afric an-Am shonda n. Not Available [address] [address] [place], [address], 11/20/2020 17:41:18 11/21/19 21 11/20/2020 COMPR EHENS FREDO METAB OLIC PANEL eGFR non-afr. mauritanian 57 mL/mi n/1.7 3m2 > or = 60 low Not Available [address], [address], 11/20/2020 17:41:18 11/21/19 21 11/20/2020 COMPR EHENS FREDO METAB OLIC PANEL eGFR 66 mL/mi n/1.7 3m2 > or = 60 normal Not Available [address], [address], 11/20/2020 17:41:18 11/21/19 21 11/20/2020 COMPR EHENS FREDO METAB OLIC PANEL BUN/creatini ne ratio 24 (calc ) 6-22 high Not Available [address] [place], [address], 11/20/2020 17:41:18 11/21/1911/20/2020 COMPR EHENS FREDO METAB OLIC PANEL sodium 142 mmol/ L 135-14 6 normal Not Available [address], [address], 11/20/2020 17:41:18 11/21/19 21 11/20/2020 COMPR EHENS FREDO METAB OLIC PANEL potassium 4.5 mmol/ L 3.5-5. 3 normal Not Available [address], [address], 11/20/2020 17:41:18 11/21/1911/20/2020 COMPR EHENS FREDO METAB OLIC PANEL chloride 105 mmol/ L 98-110 normal Not Available [address], [address], 11/20/2020 17:41:18 11/21/19 21 11/20/2020 COMPR EHENS FREDO METAB OLIC PANEL carbon dioxide 29 mmol/ L 20-32 normal Not Available [address], [address], 11/20/2020 17:41:18 11/21/19 21 11/20/2020 COMPR EHENS FREDO METAB OLIC PANEL calcium 9.8 mg/dL 8.6-10 .3 normal Not Available [address], [address], 11/20/2020 17:41:18 11/21/1911/20/2020 COMPR EHENS FREDO METAB OLIC PANEL protein, total 7.6 g/dL 6.1-8. 1 normal Not Available [address], [address], 11/20/2020 17:41:18 11/21/19 21 11/20/2020 COMPR EHENS FREDO METAB OLIC PANEL albumin 4.3 g/dL 3.6-5. 1 normal Not Available [address], [address], 11/20/2020 17:41:18 11/21/19 21 11/20/2020 COMPR EHENS FREDO METAB OLIC PANEL globulin 3.3 g/dL_ (calc ) 1.9-3. 7 normal Not Available [address], [address], 11/20/2020 17:41:18 11/21/19 21 11/20/2020 COMPR EHENS FREDO METAB OLIC PANEL albumin/glob ulin ratio 1.3 (calc ) 1.0-2. 5 normal Not Available [address], [address], 11/20/2020 17:41:18 11/21/19 21 11/20/2020 COMPR EHENS FREDO METAB OLIC PANEL ALT 34 U/L 9-46 normal Not Available [address], [address], 11/20/2020 17:41:18 11/21/19 21 11/20/2020 COMPR EHENS FREDO METAB OLIC PANEL bilirubin, total 0.5 mg/dL 0.2-1. 2 normal Not Available [address], [address], 11/20/2020 17:41:18 11/21/19 21 11/20/2020 COMPR EHENS FREDO METAB OLIC PANEL alkaline phosphatase 92 U/L 35-144 normal Not Available [address], [address], 11/20/2020 17:41:18 11/21/19 21 11/20/2020 COMPR EHENS FREDO METAB OLIC PANEL AST 25 U/L 10-35 normal Not Available [address], [address], 11/20/2020 17:41:18 11/21/19 21 11/20/2020 LIPID PANEL [...] LDL-C . Anabel turner SS et al. SUIR. 2013; 310(1 9): 2061- 2068 (http ://ed ucati on.[employer]. com/f aq/FA Q164) Not Available [address], [address], 11/20/2020 17:41:18 11/21/19 21 11/20/2020 LIPID PANEL , STAND KHLOE cholesterol, total 162 mg/dL <200 normal Not Available [address], [address], 11/20/2020 17:41:18 11/21/19 21 11/20/2020 LIPID PANEL , STAND KHLOE HDL cholesterol 51 mg/dL > or = 40 normal Not Available [address], [address], 11/20/2020 17:41:18 11/21/19 21 11/20/2020 LIPID PANEL , STAND KHLOE triglyceride s 121 mg/dL <150 normal Not Available [address], [address], 11/20/2020 17:41:18 11/21/19 21 11/20/2020 LIPID PANEL , STAND KHLOE chol/HDLC ratio 3.2 (calc ) <5.0 normal Not Available [facility] [address] [address], [place], [address], 11/20/2020 17:41:18 11/21/19 21 11/20/2020 LIPID PANEL , STAND KHLOE non HDL cholesterol 111 mg/dL _(khushi c) <130 normal For patie nts with diabe zonia plus 1 major ASCVD risk facto r, treat ing to a non-H DL-C goal of <100 mg/dL (LDL- C of <70 mg/dL ) is consi dered a thera peuti c optio n. Not Available [facility] [address] [address], [place], [address], 11/20/2020 17:41:18 03/26/19 22 03/27/2021 HEMOG LOBIN [...] diabe zonia for child fabiola. Not Available [facility] [address] [address], [place], [address], 03/27/2021 17:33:02 03/26/19 22 03/27/2021 TSH TSH 1.65 mIU/L 0.40-4 .50 normal Not Available [facility] [address] [address], [place], [address], 03/27/2021 17:33:01 03/26/19 22 03/27/2021 T4, FREE T4, free 1.2 NG/dL 0.8-1. 8 normal Not Available [address] [address] [place], [address], 03/27/2021 17:33:01 03/26/19 22 03/27/2021 ALBUM IN, RANDO M URINE W/CRE ATINI NE creatinine, random urine 14 mg/dL 20-320 low Not Available [address] [address] [place], [address], 03/27/2021 17:33:00 03/26/19 22 03/27/2021 ALBUM IN, RANDO M URINE W/CRE ATINI NE albumin, urine 32.0 mg/dL see note: normal Refer ence Range : Refer ence Range Not estab lishe d Not Available [address] [address] [facility], [place], [address], 03/27/2021 17:33:00 03/26/19 22 03/27/2021 ALBUM IN, [...] a diagn ostic categ ory. Not Available [address] [address] [place], [address], 03/27/2021 17:33:00 03/26/19 22 03/27/2021 COMPR EHENS FREDO METAB OLIC PANEL glucose 130 mg/dL 65-99 high Fasti ng refer ence inter flaco For someo ne witho ut known diabe zonia, a gluco se value >125 mg/dL indic ates that they may have diabe zonia and this shoul d be confi rmed with a follo w-up test. Not Available [address] [place], [address], 03/27/2021 17:33:00 03/26/19 22 03/27/2021 COMPR EHENS FREDO METAB OLIC PANEL eGFR 66 mL/mi n/1.7 3m2 > or = 60 normal Not Available [address], [address], 03/27/2021 17:33:00 03/26/19 22 03/27/2021 COMPR EHENS FREDO METAB OLIC PANEL urea nitrogen (BUN) 22 mg/dL 7-25 normal Not Available [address] [place], [address], 03/27/2021 17:33:00 03/26/19 22 03/27/2021 COMPR EHENS FREDO METAB OLIC PANEL creatinine 1.27 mg/dL 0.70-1 .18 high For patie nts >49 years of age, the refer ence limit for Creat inine is appro ximat alecia 13% highe r for peopl e ident ified as Afric an-Am shonda n. Not Available [address] [address] , [place], [address], 03/27/2021 17:33:00 03/26/19 22 03/27/2021 COMPR EHENS FREDO METAB OLIC PANEL eGFR non-afr. mauritanian 57 mL/mi n/1.7 3m2 > or = 60 low Not Available [address] [address] [place], [address], 03/27/2021 17:33:00 03/26/19 22 03/27/2021 COMPR EHENS FREDO METAB OLIC PANEL BUN/creatini ne ratio 17 (calc ) 6-22 normal Not Available [address], [address], 03/27/2021 17:33:00 03/26/19 22 03/27/2021 COMPR EHENS FREDO METAB OLIC PANEL sodium 141 mmol/ L 135-14 6 normal Not Available [address], [address], 03/27/2021 17:33:00 03/26/19 22 03/27/2021 COMPR EHENS FREDO METAB OLIC PANEL potassium 4.2 mmol/ L 3.5-5. 3 normal Not Available [address], [address], 03/27/2021 17:33:00 03/26/19 22 03/27/2021 COMPR EHENS FREDO METAB OLIC PANEL chloride 105 mmol/ L 98-110 normal Not Available [address], [address], 03/27/2021 17:33:00 03/26/19 22 03/27/2021 COMPR EHENS FREDO METAB OLIC PANEL carbon dioxide 26 mmol/ L 20-32 normal Not Available [address], [address], 03/27/2021 17:33:00 03/26/19 22 03/27/2021 COMPR EHENS FREDO METAB OLIC PANEL calcium 9.4 mg/dL 8.6-10 .3 normal Not Available [address], [address], 03/27/2021 17:33:00 03/26/19 22 03/27/2021 COMPR EHENS FREDO METAB OLIC PANEL protein, total 7.1 g/dL 6.1-8. 1 normal Not Available [address], [address], 03/27/2021 17:33:00 03/26/19 22 03/27/2021 COMPR EHENS FREDO METAB OLIC PANEL albumin 4.3 g/dL 3.6-5. 1 normal Not Available [address], [address], 03/27/2021 17:33:00 03/26/19 22 03/27/2021 COMPR EHENS FREDO METAB OLIC PANEL globulin 2.8 g/dL_ (calc ) 1.9-3. 7 normal Not Available [address], [address], 03/27/2021 17:33:00 03/26/19 22 03/27/2021 COMPR EHENS FREDO METAB OLIC PANEL albumin/glob ulin ratio 1.5 (calc ) 1.0-2. 5 normal Not Available [address], [address], 03/27/2021 17:33:00 03/26/19 22 03/27/2021 COMPR EHENS FREDO METAB OLIC PANEL bilirubin, total 0.6 mg/dL 0.2-1. 2 normal Not Available [address], [address], 03/27/2021 17:33:00 03/26/19 22 03/27/2021 COMPR EHENS FREDO METAB OLIC PANEL alkaline phosphatase 87 U/L 35-144 normal Not Available [address], [address], 03/27/2021 17:33:00 03/26/19 22 03/27/2021 COMPR EHENS FREDO METAB OLIC PANEL AST 19 U/L 10-35 normal Not Available [address], [address], 03/27/2021 17:33:00 03/26/19 22 03/27/2021 COMPR EHENS FREDO METAB OLIC PANEL ALT 25 U/L 9-46 normal Not Available [facility] [address] [address] [place], [address], 03/27/2021 17:33:00 03/26/19 22 03/27/2021 LIPID PANEL [...] 2061- 2068 (http ://ed ucati on.[employer]. com/f aq/FA Q164) Not Available [facility] [address] [address] [place], [address], 03/27/2021 17:32:59 03/26/19 22 03/27/2021 LIPID PANEL , STAND KHLOE cholesterol, total 188 mg/dL <200 normal Not Available [address] [address] [place], [address], 03/27/2021 17:32:59 03/26/19 22 03/27/2021 LIPID PANEL , STAND KLHOE HDL cholesterol 58 mg/dL > or = 40 normal Not Available [facility] [address] [address] [place], [address], 03/27/2021 17:32:59 03/26/19 22 03/27/2021 LIPID PANEL , STAND KHLOE triglyceride s 108 mg/dL <150 normal Not Available [facility] [address] [address] [place], [address], 03/27/2021 17:32:59 03/26/19 22 03/27/2021 LIPID PANEL , STAND KHLOE chol/HDLC ratio 3.2 (calc ) <5.0 normal Not Available [facility] [address] [place], [address], 03/27/2021 17:32:59 03/26/19 22 03/27/2021 LIPID PANEL , STAND KHLOE non HDL cholesterol 130 mg/dL _(khushi c) <130 high For patie nts with diabe zonia plus 1 major ASCVD risk facto r, treat ing to a non-H DL-C goal of <100 mg/dL (LDL- C of <70 mg/dL ) is consi elena marino optio n. Not Available [facility] [address] [address], [place], [address], 03/27/2021 17:32:59 07/12/19 22 07/12/2021 HEMOG LOBIN [...] diabe zonia for child fabiola. Not Available [facility] [address] [address], [place], [address], 07/12/2021 17:45:58 07/12/19 22 07/12/2021 TSH TSH 2.26 mIU/L 0.40-4 .50 normal Not Available [address] [address] [place], [address], 07/12/2021 17:45:58 07/12/19 22 07/12/2021 T4, FREE T4, free 1.3 NG/dL 0.8-1. 8 normal Not Available [address], [address], 07/12/2021 17:45:57 07/12/19 22 07/12/2021 ALBUM IN, RANDO M URINE W/CRE ATINI NE creatinine, random urine 70 mg/dL 20-320 normal Not Available [address], [address], 07/12/2021 17:45:57 07/12/19 22 07/12/2021 ALBUM IN, RANDO M URINE W/CRE ATINI NE albumin, urine 87.1 mg/dL see note: normal Refer ence Range : Refer ence Range Not estab lishe d Verif ied by repea t mary ellen sis. Not Available [address], [address], 07/12/2021 17:45:57 07/12/19 22 07/12/2021 ALBUM IN, [...] a diagn ostic categ ory. Not Available [address], [address], 07/12/2021 17:45:57 07/12/19 22 07/12/2021 COMPR EHENS FREDO METAB OLIC PANEL eGFR 53 mL/mi n/1.7 3m2 > or = 60 low Not Available [address], [address], 07/12/2021 17:45:56 07/12/19 22 07/12/2021 COMPR EHENS FREDO METAB OLIC PANEL glucose 115 mg/dL 65-99 high Fasti ng refer ence inter flaco For someo ne witho ut known diabe zonia, a gluco se value betwe en 100 and 125 mg/dL is consi stent with predi abete s and shoul d be confi rmed with a follo w-up test. Not Available [address], [address], 07/12/2021 17:45:56 07/12/19 22 07/12/2021 COMPR EHENS FREDO METAB OLIC PANEL urea nitrogen (BUN) 32 mg/dL 7-25 high Not Available [address], [address], 07/12/2021 17:45:56 07/12/19 22 07/12/2021 COMPR EHENS FREDO METAB OLIC PANEL creatinine 1.51 mg/dL 0.70-1 .18 high For patie nts >49 years of age, the refer ence limit for Creat inine is appro ximat alecia 13% highe r for peopl e ident ified as Afric an-Am shonda n. Not Available [address], [address], 07/12/2021 17:45:56 07/12/19 22 07/12/2021 COMPR EHENS FREDO METAB OLIC PANEL eGFR non-afr. mauritanian 46 mL/mi n/1.7 3m2 > or = 60 low Not Available [address] [place], [address], 07/12/2021 17:45:56 07/12/19 22 07/12/2021 COMPR EHENS FREDO METAB OLIC PANEL BUN/creatini ne ratio 21 (calc ) 6-22 normal Not Available [address], [address], 07/12/2021 17:45:56 07/12/19 22 07/12/2021 COMPR EHENS FREDO METAB OLIC PANEL carbon dioxide 29 mmol/ L 20-32 normal Not Available [address], [address], 07/12/2021 17:45:56 07/12/19 22 07/12/2021 COMPR EHENS FREDO METAB OLIC PANEL sodium 144 mmol/ L 135-14 6 normal Not Available [address], [address], 07/12/2021 17:45:56 07/12/19 22 07/12/2021 COMPR EHENS FREDO METAB OLIC PANEL potassium 4.2 mmol/ L 3.5-5. 3 normal Not Available [address], [address], 07/12/2021 17:45:56 07/12/19 22 07/12/2021 COMPR EHENS FREDO METAB OLIC PANEL chloride 106 mmol/ L 98-110 normal Not Available [address], [address], 07/12/2021 17:45:56 07/12/19 22 07/12/2021 COMPR EHENS FREDO METAB OLIC PANEL calcium 9.5 mg/dL 8.6-10 .3 normal Not Available [address], [address], 07/12/2021 17:45:56 07/12/19 22 07/12/2021 COMPR EHENS FREDO METAB OLIC PANEL protein, total 7.0 g/dL 6.1-8. 1 normal Not Available [address], [address], 07/12/2021 17:45:56 07/12/19 22 07/12/2021 COMPR EHENS FREDO METAB OLIC PANEL albumin 4.2 g/dL 3.6-5. 1 normal Not Available [address], [address], 07/12/2021 17:45:56 07/12/19 22 07/12/2021 COMPR EHENS FREDO METAB OLIC PANEL globulin 2.8 g/dL_ (calc ) 1.9-3. 7 normal Not Available [address], [address], 07/12/2021 17:45:56 07/12/19 22 07/12/2021 COMPR EHENS FREDO METAB OLIC PANEL albumin/glob ulin ratio 1.5 (calc ) 1.0-2. 5 normal Not Available [address], [address], 07/12/2021 17:45:56 07/12/19 22 07/12/2021 COMPR EHENS FREDO METAB OLIC PANEL bilirubin, total 0.4 mg/dL 0.2-1. 2 normal Not Available [address], [address], 07/12/2021 17:45:56 07/12/19 22 07/12/2021 COMPR EHENS FREDO METAB OLIC PANEL alkaline phosphatase 97 U/L 35-144 normal Not Available [facility] [employer] [address], [address], 07/12/2021 17:45:56 07/12/19 22 07/12/2021 COMPR EHENS FREDO METAB OLIC PANEL AST 23 U/L 10-35 normal Not Available [address] [place], [address], 07/12/2021 17:45:56 07/12/19 22 07/12/2021 COMPR EHENS FREDO METAB OLIC PANEL ALT 26 U/L 9-46 normal Not Available [address] [address] [place], [address], 07/12/2021 17:45:56 07/12/19 22 07/12/2021 LIPID PANEL , STAND KHLOE chol/HDLC ratio 3.3 (calc ) <5.0 normal Not Available [address] [place], [address], 07/12/2021 17:45:55 07/12/19 22 07/12/2021 LIPID PANEL , STAND KHLOE non HDL cholesterol 99 mg/dL _(khushi c) <130 normal For patie nts with diabe zonia plus 1 major ASCVD risk facto r, treat ing to a non-H DL-C goal of <100 mg/dL (LDL- C of <70 mg/dL ) is consi wandad a dylan marino optio n. Not Available [address], [address], 07/12/2021 17:45:55 07/12/19 22 07/12/2021 LIPID PANEL , STAND KHLOE cholesterol, total 143 mg/dL <200 normal Not Available [address], [address], 07/12/2021 17:45:55 07/12/19 22 07/12/2021 LIPID PANEL , STAND KHLOE HDL cholesterol 44 mg/dL > or = 40 normal Not Available [address], [address], 07/12/2021 17:45:55 07/12/19 22 07/12/2021 LIPID PANEL , STAND KHLOE triglyceride s 123 mg/dL <150 normal Not Available [address], [address], 07/12/2021 17:45:55 07/12/1907/12/2021 LIPID PANEL , STAND [...] 310(1 9): 2061- 2068 (http ://ed ucati on.[employer]/f aq/FA Q164) Not Available [facility] [address] [address] , [place], [address], 07/12/2021 17:45:55 10/23/19 22 10/23/2021 HEMOG LOBIN [...] diabe zonia for child fabiola. Not Available [facility] [address] [place], [address], 10/23/2021 17:39:23 10/23/19 22 10/23/2021 HEMOG LOBIN A1C copy(ies) sent to: [facility] [address] [facility] [address] [place] [address] Not Available [address] [address] [place], [address], 10/23/2021 17:39:23 10/23/19 22 10/23/2021 TSH TSH 1.68 mIU/L 0.40-4 .50 normal Not Available [address] [address] [place], [address], 10/23/2021 17:39:23 10/23/19 22 10/23/2021 TSH copy(ies) sent to: [facility] [address] [facility] [address] [place] [address] Not Available [address] [address] [place], [address], 10/23/2021 17:39:23 10/23/19 22 10/23/2021 T4, FREE T4, free 1.3 NG/dL 0.8-1. 8 normal Not Available [address] [address] [place], [address], 10/23/2021 17:39:22 10/23/19 22 10/23/2021 T4, FREE copy(ies) sent to: [facility] [address] [facility] [address] [place] [address] Not Available [address] [address] [place], [address], 10/23/2021 17:39:22 10/23/19 22 10/23/2021 ALBUM IN, RANDO M URINE W/CRE ATINI NE creatinine, random urine 51 mg/dL 20-[address] [facility] [address] [address], [place], [address], 10/23/2021 17:39:22 10/23/19 22 10/23/2021 ALBUM IN, RANDO M URINE W/CRE ATINI NE albumin, urine 55.4 mg/dL see note: normal Refer ence Range : Refer ence Range Not estab lishe d Verif ied by repea t mary ellen sis. Not Available [address] [address], [place], [address], 10/23/2021 17:39:22 10/23/19 22 10/23/2021 ALBUM IN, [...] a diagn ostic categ ory. Not Available [facility] [address] [address], [place], [address], 10/23/2021 17:39:22 10/23/19 22 10/23/2021 ALBUM IN, RANDO M URINE W/CRE ATINI NE copy(ies) sent to: [facility] [address] [facility] [address] [place] [address] Not Available [facility] [address] [address], [place], [address], 10/23/2021 17:39:22 10/23/19 22 10/23/2021 COMPR EHENS FREDO METAB OLIC PANEL glucose 147 mg/dL 65-99 high Fasti ng refer ence inter flaco For someo ne witho ut known diabe zonia, a gluco se value >125 mg/dL indic ates that they may have diabe zonia and this shoul d be confi rmed with a follo w-up test. Not Available [facility] [place] [address] [address] [place], [address], 10/23/2021 17:39:21 10/23/19 22 10/23/2021 COMPR EHENS FREDO METAB OLIC PANEL urea nitrogen (BUN) 35 mg/dL 7-25 high Not Available [facility] [place] [address] [address] [place], [address], 10/23/2021 17:39:21 10/23/19 22 10/23/2021 COMPR EHENS FREDO METAB OLIC PANEL creatinine 1.69 mg/dL 0.70-1 .28 high Not Available [address] [place] [address] [place], [address], 10/23/2021 17:39:21 10/23/19 22 10/23/2021 COMPR EHENS [...] kdoqi /gfr% 5Fcal culat or Not Available [facility] [address] [address] [place], [address], 10/23/2021 17:39:21 10/23/19 22 10/23/2021 COMPR EHENS FREDO METAB OLIC PANEL BUN/creatini ne ratio 21 (calc ) 6-22 normal Not Available [facility] [address] [address] [place], [address], 10/23/2021 17:39:21 10/23/19 22 10/23/2021 COMPR EHENS FREDO METAB OLIC PANEL sodium 143 mmol/ L 135-14 6 normal Not Available [address], [address], 10/23/2021 17:39:21 10/23/19 22 10/23/2021 COMPR EHENS FREDO METAB OLIC PANEL potassium 3.9 mmol/ L 3.5-5. 3 normal Not Available [address], [address], 10/23/2021 17:39:21 10/23/19 22 10/23/2021 COMPR EHENS FREDO METAB OLIC PANEL chloride 103 mmol/ L 98-110 normal Not Available [address], [address], 10/23/2021 17:39:21 10/23/19 22 10/23/2021 COMPR EHENS FREDO METAB OLIC PANEL carbon dioxide 30 mmol/ L 20-32 normal Not Available [address], [address], 10/23/2021 17:39:21 10/23/19 22 10/23/2021 COMPR EHENS FREDO METAB OLIC PANEL calcium 9.2 mg/dL 8.6-10 .3 normal Not Available [address], [address], 10/23/2021 17:39:21 10/23/19 22 10/23/2021 COMPR EHENS FREDO METAB OLIC PANEL protein, total 7.2 g/dL 6.1-8. 1 normal Not Available [address], [address], 10/23/2021 17:39:21 10/23/19 22 10/23/2021 COMPR EHENS FREDO METAB OLIC PANEL albumin 4.2 g/dL 3.6-5. 1 normal Not Available [address], [address], 10/23/2021 17:39:21 10/23/19 22 10/23/2021 COMPR EHENS FREDO METAB OLIC PANEL globulin 3.0 g/dL_ (calc ) 1.9-3. 7 normal Not Available [address], [address], 10/23/2021 17:39:21 10/23/19 22 10/23/2021 COMPR EHENS FREDO METAB OLIC PANEL albumin/glob ulin ratio 1.4 (calc ) 1.0-2. 5 normal Not Available [address], [address], 10/23/2021 17:39:21 10/23/19 22 10/23/2021 COMPR EHENS FREDO METAB OLIC PANEL ALT 21 U/L 9-46 normal Not Available [address], [address], 10/23/2021 17:39:21 10/23/19 22 10/23/2021 COMPR EHENS FREDO METAB OLIC PANEL bilirubin, total 0.5 mg/dL 0.2-1. 2 normal Not Available [address], [address], 10/23/2021 17:39:21 10/23/19 22 10/23/2021 COMPR EHENS FREDO METAB OLIC PANEL alkaline phosphatase 91 U/L 35-144 normal Not Available [address] [address] [place], [address], 10/23/2021 17:39:21 10/23/19 22 10/23/2021 COMPR EHENS FREDO METAB OLIC PANEL AST 16 U/L 10-35 normal Not Available [address], [address], 10/23/2021 17:39:21 10/23/19 10/23/2021 COMPR EHENS FREDO METAB OLIC PANEL copy(ies) sent to: [facility] T[facility] ON [facility] [address] [place] [address] Not Available [address], [address], 10/23/2021 17:39:21 10/23/19 22 10/23/2021 LIPID PANEL [...] 9): 2061- 2068 (http ://ed ucati on.Qu estBiart. com/f aq/FA Q164) Not Available [address] [address] [place], [address], 10/23/2021 17:39:21 10/23/19 22 10/23/2021 LIPID PANEL , STAND KHLOE cholesterol, total 154 mg/dL <200 normal Not Available [facility] [address] [address] [address] [place], [address], 10/23/2021 17:39:21 10/23/19 22 10/23/2021 LIPID PANEL , STAND KHLOE HDL cholesterol 56 mg/dL > or = 40 normal Not Available [address] [address] [place], [address], 10/23/2021 17:39:21 10/23/19 22 10/23/2021 LIPID PANEL , STAND KHLOE triglyceride s 124 mg/dL <150 normal Not Available [address] [address] [place], [address], 10/23/2021 17:39:21 10/23/19 22 10/23/2021 LIPID PANEL , STAND KHLOE chol/HDLC ratio 2.8 (calc ) <5.0 normal Not Available [address] [address] [place], [address], 10/23/2021 17:39:21 10/23/19 22 10/23/2021 LIPID PANEL , STAND KHLOE non HDL cholesterol 98 mg/dL _(khushi c) <130 normal For patie nts with diabe zonia plus 1 major ASCVD risk facto r, treat ing to a non-H DL-C goal of <100 mg/dL (LDL- C of <70 mg/dL ) is consi dered a thera peuti c optio n. Not Available [address] [place], [address], 10/23/2021 17:39:21 10/23/1910/23/2021 LIPID PANEL , STAND KHLOE copy(ies) sent to: [facility]PHR OLOGChristopher & [facility]PER TENSI ON [facility] [address] [facility] [address] [place] [address] Not Available [facility] [address] [address] [place], [address], 10/23/2021 17:39:21 10/23/19 22 10/27/2021 VITAM IN D, 1,25 DIHYD SHIKHA vitamin D3, 1,25 (oh)2 29 pg/mL Not Available [facility] [address] [address] [address] [place], [address], 10/27/2021 14:34:23 10/23/19 22 10/27/2021 VITAM IN D, 1,25 DIHYD SHIKHA vitamin D, 1,25 (oh)2, total 29 pg/mL 18-72 Not Available [facility] [address] [place], [address], 10/27/2021 14:34:23 10/23/1910/27/2021 VITAM IN D, 1,25 [...] cteri stics have been deter mined by [facility]. It has not been clear ed or appro ollie by the FDA. This assay has been valid ated pursu ant to the CLIA regul ation s and is used for clini khushi purpo ses. For addit ional infor ole marin e refer to http: //[facility] berrien catsuzy n.Que stDia gnost ics.c om/fa q/FAQ 199 (This link is being provi ded for infor cate nal/e ducat ional purpo ses only. ) MDF med fusio n [address] [facility] [address] [facility] [address] [phone] Jarred kessler MD See Note 1 Not Available [facility] [address] [address], [place], [address], 10/27/2021 14:34:23 10/23/1910/27/2021 VITAM IN D, 1,25 DIHYD SHIKHA copy received from: [facility]R [facility] HYPER TENSI ON [facility]A [facility] [address] [facility] [address] [place] [address] Not Available [facility] [address] [place], [address], 10/27/2021 14:34:23 10/23/19 22 10/27/2021 PTH, INTAC [...] Johanny l High Not Available [facility] [address] [place], [address], 10/27/2021 14:34:22 10/23/19 22 10/27/2021 PTH, INTAC T WITHO UT CALCI UM copy received from: NEPHR OLOGY & HYPER TENSI ON [facility]asty [facility] [id number] [place] [address] Not Available [facility] [address] [address] [place], [address], 10/27/2021 14:34:22 10/23/19 22 10/27/2021 QUEST ASSUR ED 25-OH VIT D, (D2,D 3) copy received from: [facility]R [facility]Y [facility] HYPER TENSI ON [facility] [address] [facility] [address] [place] [address] Not Available [facility] [address] [address] [address] [place], [address], 10/27/2021 13:44:14 10/23/1910/27/2021 QUEST ASSUR ED 25-OH [...] gnost ics.c om/fa q/FAQ 199 Not Available [facility] [address] [address] [place], [address], 10/27/2021 13:44:14 10/23/19 22 10/27/2021 QUEST ASSUR ED 25-OH VIT D, (D2,D 3) vitamin D, 25-oh, D3 26 NG/mL Refer ence range : Not estab lishe d Not Available [facility] [address] [place], [address], 10/27/2021 13:44:14 10/23/1910/27/2021 QUEST ASSUR ED 25-OH VIT D, (D2,D 3) vitamin D, 25-oh, D2 <4.0 NG/mL (Note ) Refer ence range : Not estab lishe d This test was devel yazan and its mary ellen tical perfo rmanc e sandra cteri stics have been deter mined by [facility]. It has not been clear ed or appro ollie by the [place] Food and Drug Admin istra tion. This assay has been valid ated pursu ant to the [place] [facility] ation and is used for Clini khushi purpo ses. F med yany n [address] [facility] [address] [place] [address] [phone] Jarred kessler MD See Note 1 Note 1 For addit ional infor ole marin e refer to http: //[facility] luzmaria turner.Aurelio stDia gnost ics.c om/fa q/FAQ 199 (This link is being provi ded for infor cate reyes/ educrudolph rita l purpo ses only. ) Not Available [facility] [address], [address], 10/27/2021 13:44:14 10/23/19 22 10/23/2021 PROTE IN, TOTAL W/CRE AT, RANDO M URINE protein, total, random ur 97 mg/dL 5-25 high Not Available [address], [address], 10/23/2021 17:48:18 10/23/19 22 10/23/2021 PROTE IN, TOTAL W/CRE AT, RANDO M URINE creatinine, random urine 52 mg/dL 20-320 normal Not Available [address] [address] [place], [address], 10/23/2021 17:48:18 10/23/19 22 10/23/2021 PROTE IN, TOTAL W/CRE AT, RANDO M URINE protein/crea tinine ratio 1865 mg/g_ creat 25-148 high Not Available [address], [address], 10/23/2021 17:48:18 10/23/19 22 10/23/2021 PROTE IN, TOTAL W/CRE AT, RANDO M URINE protein/crea tinine ratio 1.865 mg/mg _crea t 0.025- 0.148 high Not Available [address], [address], 10/23/2021 17:48:18 10/23/19 22 10/23/2021 PROTE IN, TOTAL W/CRE AT, RANDO M URINE copy received from: NEPHR OLOGY & HYPER TENSI ON [facility] [address] [facility] [address] [place] [address] Not Available [employer] [address], [address], 10/23/2021 17:48:18 10/23/19 22 10/23/2021 RENAL FUNCT ION PANEL BUN/creatini ne ratio 20 (calc ) 6-22 normal Not Available [address], [address], 10/23/2021 06:48:58 10/23/19 22 10/23/2021 RENAL FUNCT ION PANEL glucose 144 mg/dL 65-99 high Fasti ng refer ence inter flaco For someo ne witho ut known diabe zonia, a gluco se value >125 mg/dL indic ates that they may have diabe zonia and this shoul d be confi rmed with a follo w-up test. Not Available [employer] [address], [address], 10/23/2021 06:48:58 10/23/19 22 10/23/2021 RENAL FUNCT ION PANEL urea nitrogen (BUN) 35 mg/dL 7-25 high Not Available [facility] [facility] [address], [address], 10/23/2021 06:48:58 10/23/19 22 10/23/2021 RENAL FUNCT ION PANEL creatinine 1.79 mg/dL 0.70-1 .28 high Not Available [employer] [address] [place], [address], 10/23/2021 06:48:58 10/23/19 22 10/23/2021 RENAL FUNCT [...] kdoqi /gfr% 5Fcal culat or Not Available [address], [address], 10/23/2021 06:48:58 10/23/19 22 10/23/2021 RENAL FUNCT ION PANEL sodium 144 mmol/ L 135-14 6 normal Not Available [address] [address] [place], [address], 10/23/2021 06:48:58 10/23/19 22 10/23/2021 RENAL FUNCT ION PANEL potassium 3.7 mmol/ L 3.5-5. 3 normal Not Available [address], [address], 10/23/2021 06:48:58 10/23/19 22 10/23/2021 RENAL FUNCT ION PANEL chloride 104 mmol/ L 98-110 normal Not Available [address], [address], 10/23/2021 06:48:58 10/23/19 22 10/23/2021 RENAL FUNCT ION PANEL carbon dioxide 30 mmol/ L 20-32 normal Not Available [address], [address], 10/23/2021 06:48:58 10/23/19 22 10/23/2021 RENAL FUNCT ION PANEL calcium 9.2 mg/dL 8.6-10 .3 normal Not Available [address], [address], 10/23/2021 06:48:58 10/23/1910/23/2021 RENAL FUNCT ION PANEL phosphate ( phosphorus) 3.9 mg/dL 2.1-4. 3 normal Not Available [address], [address], 10/23/2021 06:48:58 10/23/19 22 10/23/2021 RENAL FUNCT ION PANEL albumin 4.2 g/dL 3.6-5. 1 normal Not Available [address], [address], 10/23/2021 06:48:58 10/23/1910/23/2021 RENAL FUNCT ION PANEL copy received from: NEPHR OLOGY & HYPER TENSI ON [facility] [address] [facility] [address] [place] [address] Not Available [address], [address], 10/23/2021 06:48:58 10/23/1910/23/2021 CBC (INCL UDES DIFF/ PLT) white blood cell count 8.0 thous and/u L 3.8-10 .8 normal Not Available [address], [address], 10/23/2021 06:02:41 10/23/19 22 10/23/2021 CBC (INCL UDES DIFF/ PLT) red blood cell count 4.30 armando on/uL 4.20-5 .80 normal Not Available [address], [address], 10/23/2021 06:02:41 10/23/19 22 10/23/2021 CBC (INCL UDES DIFF/ PLT) hemoglobin 12.9 g/dL 13.2-1 7.1 low Not Available [address] [place], [address], 10/23/2021 06:02:41 10/23/19 22 10/23/2021 CBC (INCL UDES DIFF/ PLT) hematocrit 39.0 % 38.5-5 0.0 normal Not Available [address], [address], 10/23/2021 06:02:41 10/23/19 22 10/23/2021 CBC (INCL UDES DIFF/ PLT) MCV 90.7 fL 80.0-1 00.0 normal Not Available [facility] [address], [address], 10/23/2021 06:02:41 10/23/1910/23/2021 CBC (INCL UDES DIFF/ PLT) MCH 30.0 pg 27.0-3 3.0 normal Not Available [address], [address], 10/23/2021 06:02:41 10/23/19 22 10/23/2021 CBC (INCL UDES DIFF/ PLT) MPV 12.8 fL 7.5-12 .5 high Not Available [address], [address], 10/23/2021 06:02:41 10/23/19 22 10/23/2021 CBC (INCL UDES DIFF/ PLT) MCHC 33.1 g/dL 32.0-3 6.0 normal Not Available [address], [address], 10/23/2021 06:02:41 10/23/1910/23/2021 CBC (INCL UDES DIFF/ PLT) RDW 13.5 % 11.0-1 5.0 normal Not Available [facility] [address], [address], 10/23/2021 06:02:41 10/23/19 22 10/23/2021 CBC (INCL UDES DIFF/ PLT) platelet count 247 thous and/u L 140-40 0 normal Not Available [address], [address], 10/23/2021 06:02:41 10/23/19 22 10/23/2021 CBC (INCL UDES DIFF/ PLT) absolute neutrophils 5624 cells /uL 1500-7 800 normal Not Available [address], [address], 10/23/2021 06:02:41 10/23/19 22 10/23/2021 CBC (INCL UDES DIFF/ PLT) absolute lymphocytes 1640 cells /uL 850-39 00 normal Not Available [address], [address], 10/23/2021 06:02:41 10/23/19 22 10/23/2021 CBC (INCL UDES DIFF/ PLT) absolute monocytes 544 cells /uL 200-95 0 normal Not Available [address], [address], 10/23/2021 06:02:41 10/23/19 22 10/23/2021 CBC (INCL UDES DIFF/ PLT) absolute eosinophils 152 cells /uL 15-500 normal Not Available [address], [address], 10/23/2021 06:02:41 10/23/19 22 10/23/2021 CBC (INCL UDES DIFF/ PLT) absolute basophils 40 cells /uL 0-200 normal Not Available [facility] [facility] [address], [address], 10/23/2021 06:02:41 10/23/19 22 10/23/2021 CBC (INCL UDES DIFF/ PLT) neutrophils 70.3 % normal Not Available [address], [address], 10/23/2021 06:02:41 10/23/19 22 10/23/2021 CBC (INCL UDES DIFF/ PLT) lymphocytes 20.5 % normal Not Available [address], [address], 10/23/2021 06:02:41 10/23/19 22 10/23/2021 CBC (INCL UDES DIFF/ PLT) monocytes 6.8 % normal Not Available [address], [address], 10/23/2021 06:02:41 10/23/19 22 10/23/2021 CBC (INCL UDES DIFF/ PLT) eosinophils 1.9 % normal Not Available [address], [address], 10/23/2021 06:02:41 10/23/19 22 10/23/2021 CBC (INCL UDES DIFF/ PLT) basophils 0.5 % normal Not Available [address], [address], 10/23/2021 06:02:41 10/23/19 22 10/23/2021 CBC (INCL UDES DIFF/ PLT) copy received from: NEPHR OLOGY & HYPER TENSI ON [facility] [address] [facility] [address] [place] [address] Not Available [address], [address], 10/23/2021 06:02:41 10/23/19 22 10/23/2021 RENAL FUNCT ION PANEL eGFR Not Available [address], [address], 10/23/2021 06:02:40 10/23/19 22 10/23/2021 RENAL FUNCT ION PANEL glucose Not Available [address], [address], 10/23/2021 06:02:40 10/23/19 22 10/23/2021 RENAL FUNCT ION PANEL urea nitrogen (BUN) Not Available [address] [address] [place], [address], 10/23/2021 06:02:40 10/23/19 22 10/23/2021 RENAL FUNCT ION PANEL creatinine Not Available [address] [address] [place], [address], 10/23/2021 06:02:40 10/23/19 22 10/23/2021 RENAL FUNCT ION PANEL BUN/creatini ne ratio Not Available [address] [address] [place], [address], 10/23/2021 06:02:40 10/23/19 22 10/23/2021 RENAL FUNCT ION PANEL sodium Not Available [address] [address] [place], [address], 10/23/2021 06:02:40 10/23/19 22 10/23/2021 RENAL FUNCT ION PANEL potassium Not Available [address] [address] [place], [address], 10/23/2021 06:02:40 10/23/19 22 10/23/2021 RENAL FUNCT ION PANEL chloride Not Available [address] [address] [place], [address], 10/23/2021 06:02:40 10/23/19 22 10/23/2021 RENAL FUNCT ION PANEL carbon dioxide Not Available [address] [address] [place], [address], 10/23/2021 06:02:40 10/23/19 22 10/23/2021 RENAL FUNCT ION PANEL calcium Not Available [address] [address] [place], [address], 10/23/2021 06:02:40 10/23/19 22 10/23/2021 RENAL FUNCT ION PANEL phosphate ( phosphorus) Not Available [facility] [address] [place], [address], 10/23/2021 06:02:40 10/23/19 22 10/23/2021 RENAL FUNCT ION PANEL albumin Not Available [facility] [address] [place], [address], 10/23/2021 06:02:40 10/23/19 22 10/23/2021 RENAL FUNCT ION PANEL copy received from: NEPHR OLOGY & HYPER TENSI ON AKIRA MALONE [address] [facility] [address] [place] [address] Not Available [facility] [address] [address], [place], [address], 10/23/2021 06:02:40 02/12/19 23 02/13/2022 HEMOG LOBIN [...] for child fabiola. Not Available [facility] [address], [place], [address], 02/14/2022 00:24:18 02/12/1902/13/2022 TSH+F REE T4 TSH 1.31 mIU/L 0.40-4 .50 normal Not Available [address] [address] [place], [address], 02/14/2022 00:24:17 02/12/1902/13/2022 TSH+F REE T4 T4, free 1.2 NG/dL 0.8-1. 8 normal Not Available [address] [address] [place], [address], 02/14/2022 00:24:17 02/12/1902/13/2022 ALBUM IN, RANDO M URINE W/CRE ATINI NE creatinine, random urine 106 mg/dL 20-320 normal Not Available [address] [address] [place], [address], 02/14/2022 00:24:17 02/12/1902/13/2022 ALBUM IN, RANDO M URINE W/CRE ATINI NE albumin, urine 196.3 mg/dL see note: normal Refer ence Range : Refer ence Range Not estab lishe d Verif ied by repea t mary ellen sis. Not Available [address], [address], 02/14/2022 00:24:17 02/12/1902/13/2022 ALBUM IN, RANDO M [...] diagn ostic categ ory. Not Available [facility] [address], [address], 02/14/2022 00:24:17 02/12/1902/13/2022 COMPR EHENS FREDO METAB OLIC PANEL glucose 127 mg/dL 65-99 high Fasti ng refer ence inter flaco For someo ne witho ut known diabe zonia, a gluco se value >125 mg/dL indic ates that they may have diabe zonia and this shoul d be confi rmed with a follo w-up test. Not Available [address], [address], 02/14/2022 00:24:16 02/12/1902/13/2022 COMPR EHENS FREDO METAB OLIC PANEL urea nitrogen (BUN) 24 mg/dL 7-25 normal Not Available [address], [address], 02/14/2022 00:24:16 02/12/1902/13/2022 COMPR EHENS FREDO METAB OLIC PANEL creatinine 1.33 mg/dL 0.70-1 .28 high Not Available [facility] [address], [address], 02/14/2022 00:24:16 02/12/1902/13/2022 COMPR EHENS FREDO METAB OLIC PANEL eGFR 57 mL/mi n/1.7 3m2 > or = 60 low The eGFR is based on the CKD-E PI 2020 equat ion. To calcu late the new eGFR from a previ ous Creat inine or Cysta tin C resul t, go to https ://hollie anaya.delia lobo/konrad arizmendi/ kdoqi /gfr% 5Fcal culat or Not Available [facility] [address], [address], 02/14/2022 00:24:16 02/12/19 23 02/13/2022 COMPR EHENS FREDO METAB OLIC PANEL BUN/creatini ne ratio 18 (calc ) 6-22 normal Not Available [address], [address], 02/14/2022 00:24:16 02/12/19 23 02/13/2022 COMPR EHENS FREDO METAB OLIC PANEL sodium 141 mmol/ L 135-14 6 normal Not Available [address], [address], 02/14/2022 00:24:16 02/12/19 23 02/13/2022 COMPR EHENS FREDO METAB OLIC PANEL potassium 4.4 mmol/ L 3.5-5. 3 normal Not Available [address], [address], 02/14/2022 00:24:16 02/12/1902/13/2022 COMPR EHENS FREDO METAB OLIC PANEL chloride 106 mmol/ L 98-110 normal Not Available [address], [address], 02/14/2022 00:24:16 02/12/19 23 02/13/2022 COMPR EHENS FREDO METAB OLIC PANEL carbon dioxide 29 mmol/ L 20-32 normal Not Available [address], [address], 02/14/2022 00:24:16 02/12/1902/13/2022 COMPR EHENS FREDO METAB OLIC PANEL calcium 9.3 mg/dL 8.6-10 .3 normal Not Available [address], [address], 02/14/2022 00:24:16 02/12/1902/13/2022 COMPR EHENS FREDO METAB OLIC PANEL protein, total 6.9 g/dL 6.1-8. 1 normal Not Available [address], [address], 02/14/2022 00:24:16 02/12/19 23 02/13/2022 COMPR EHENS FREDO METAB OLIC PANEL albumin 4.1 g/dL 3.6-5. 1 normal Not Available [address], [address], 02/14/2022 00:24:16 02/12/19 23 02/13/2022 COMPR EHENS FREDO METAB OLIC PANEL globulin 2.8 g/dL_ (calc ) 1.9-3. 7 normal Not Available [address], [address], 02/14/2022 00:24:16 02/12/1902/13/2022 COMPR EHENS FREDO METAB OLIC PANEL albumin/glob ulin ratio 1.5 (calc ) 1.0-2. 5 normal Not Available [address], [address], 02/14/2022 00:24:16 02/12/1902/13/2022 COMPR EHENS FREDO METAB OLIC PANEL bilirubin, total 0.4 mg/dL 0.2-1. 2 normal Not Available [address], [address], 02/14/2022 00:24:16 02/12/1902/13/2022 COMPR EHENS FREDO METAB OLIC PANEL alkaline phosphatase 87 U/L 35-144 normal Not Available [facility] [employer] [address], [address], 02/14/2022 00:24:16 02/12/19 23 02/13/2022 COMPR EHENS FREDO METAB OLIC PANEL AST 20 U/L 10-35 normal Not Available [address], [address], 02/14/2022 00:24:16 02/12/19 23 02/13/2022 COMPR EHENS FREDO METAB OLIC PANEL ALT 22 U/L 9-46 normal Not Available [address] [address] [place], [address], 02/14/2022 00:24:16 02/12/1902/13/2022 LIPID PANEL , STAND KHLOE chol/HDLC ratio 2.8 (calc ) <5.0 normal Not Available [address], [address], 02/14/2022 00:24:16 02/12/19 23 02/13/2022 LIPID PANEL , STAND KHLOE cholesterol, total 160 mg/dL <200 normal Not Available [address], [address], 02/14/2022 00:24:16 02/12/1902/13/2022 LIPID PANEL , STAND KHLOE HDL cholesterol 57 mg/dL > or = 40 normal Not Available [address], [address], 02/14/2022 00:24:16 02/12/1902/13/2022 LIPID PANEL , STAND KHLOE triglyceride s 99 mg/dL <150 normal Not Available [address], [address], 02/14/2022 00:24:16 02/12/1902/13/2022 LIPID PANEL , STAND [...] turner SS et al. SURI. 2013; 310(1 2): 2061- 2068 (http ://ed ucati on.Guerda lorenzana Sangamo [employer]. com/f aq/FA Q164) Not Available [address], [address], 02/14/2022 00:24:16 02/12/19 23 02/13/2022 LIPID PANEL , STAND KHLOE non HDL cholesterol 103 mg/dL _(khushi c) <130 normal For patie nts with diabe zonia plus 1 major ASCVD risk facto r, treat ing to a non-H DL-C goal of <100 mg/dL (LDL- C of <70 mg/dL ) is consi dered a thera peuti c optio n. Not Available [address], [address], 02/14/2022 00:24:16 05/31/1905/31/2022 COMPR EHENS FREDO METAB OLIC PANEL glucose 289 mg/dL 65-99 high Fasti ng refer ence inter flaco For someo ne witho ut known diabe zonia, a gluco se value >125 mg/dL indic ates that they may have diabe zonia and this shoul d be confi rmed with a follo w-up test. Not Available [address], [address], 05/31/2022 14:06:45 05/31/1905/31/2022 COMPR EHENS FREDO METAB OLIC PANEL urea nitrogen (BUN) 34 mg/dL 7-25 high Not Available [facility] [facility] [address], [address], 05/31/2022 14:06:45 05/31/1905/31/2022 COMPR EHENS FREDO METAB OLIC PANEL creatinine 1.43 mg/dL 0.70-1 .28 high Not Available [facility] [address], [address], 05/31/2022 14:06:45 04/22/05/31/2022 COMPR EHENS FREDO METAB [...] kdoqi /gfr% 5Fcal culat or Not Available [address] [address] [place], [address], 05/31/2022 14:06:45 05/31/19 23 05/31/2022 COMPR EHENS FREDO METAB OLIC PANEL BUN/creatini ne ratio 24 (calc ) 6-22 high Not Available [address], [address], 05/31/2022 14:06:45 05/31/19 23 05/31/2022 COMPR EHENS FREDO METAB OLIC PANEL sodium 139 mmol/ L 135-14 6 normal Not Available [address], [address], 05/31/2022 14:06:45 05/31/19 23 05/31/2022 COMPR EHENS FREDO METAB OLIC PANEL potassium 4.6 mmol/ L 3.5-5. 3 normal Not Available [facility] [address] [address] [place], [address], 05/31/2022 14:06:45 05/31/1905/31/2022 COMPR EHENS FREDO METAB OLIC PANEL chloride 106 mmol/ L 98-110 normal Not Available [employer] [facility] [address], [address], 05/31/2022 14:06:45 05/31/19 23 05/31/2022 COMPR EHENS FREDO METAB OLIC PANEL carbon dioxide 26 mmol/ L 20-32 normal Not Available [employer] [address] [address] [place], [address], 05/31/2022 14:06:45 05/31/19 23 05/31/2022 COMPR EHENS FREDO METAB OLIC PANEL calcium 9.2 mg/dL 8.6-10 .3 normal Not Available [address], [address], 05/31/2022 14:06:45 05/31/1905/31/2022 COMPR EHENS FREDO METAB OLIC PANEL protein, total 6.8 g/dL 6.1-8. 1 normal Not Available [address], [address], 05/31/2022 14:06:45 05/31/19 23 05/31/2022 COMPR EHENS FREDO METAB OLIC PANEL albumin 4.0 g/dL 3.6-5. 1 normal Not Available [address], [address], 05/31/2022 14:06:45 05/31/19 23 05/31/2022 COMPR EHENS FREDO METAB OLIC PANEL globulin 2.8 g/dL_ (calc ) 1.9-3. 7 normal Not Available [address], [address], 05/31/2022 14:06:45 05/31/1905/31/2022 COMPR EHENS FREDO METAB OLIC PANEL albumin/glob ulin ratio 1.4 (calc ) 1.0-2. 5 normal Not Available [address], [address], 05/31/2022 14:06:45 05/31/1905/31/2022 COMPR EHENS FREDO METAB OLIC PANEL bilirubin, total 0.4 mg/dL 0.2-1. 2 normal Not Available [address], [address], 05/31/2022 14:06:45 05/31/19 23 05/31/2022 COMPR EHENS FREDO METAB OLIC PANEL alkaline phosphatase 80 U/L 35-144 normal Not Available [facility] [employer] [address], [address], 05/31/2022 14:06:45 05/31/19 23 05/31/2022 COMPR EHENS FREDO METAB OLIC PANEL AST 17 U/L 10-35 normal Not Available [address], [address], 05/31/2022 14:06:45 05/31/19 23 05/31/2022 COMPR EHENS FREDO METAB OLIC PANEL ALT 21 U/L 9-46 normal Not Available [address], [address], 05/31/2022 14:06:45 07/11/19 23 07/15/2022 COMPR EHENS FREDO METAB OLIC PANEL glucose 187 mg/dL 65-99 high Fasti ng refer ence inter flaco For someo ne witho ut known diabe zonia, a gluco se value >125 mg/dL indic ates that they may have diabe zonia and this shoul d be confi rmed with a follo w-up test. Not Available [address], [address], 07/15/2022 14:44:22 07/11/1907/15/2022 COMPR EHENS FREDO METAB OLIC PANEL urea nitrogen (BUN) 28 mg/dL 7-25 high Not Available [employer] [address], [address], 07/15/2022 14:44:22 07/11/19 23 07/15/2022 COMPR EHENS FREDO METAB OLIC PANEL creatinine 1.74 mg/dL 0.70-1 .28 high Not Available [employer] [address], [address], 07/15/2022 14:44:22 07/11/19 23 07/15/2022 COMPR EHENS [...] kdoqi /gfr% 5Fcal culat or Not Available [place] [address] [address] [place], [address], 07/15/2022 14:44:22 07/11/19 23 07/15/2022 COMPR EHENS FREDO METAB OLIC PANEL BUN/creatini ne ratio 16 (calc ) 6-22 normal Not Available [address], [address], 07/15/2022 14:44:22 07/11/19 23 07/15/2022 COMPR EHENS FREDO METAB OLIC PANEL sodium 140 mmol/ L 135-14 6 normal Not Available [address], [address], 07/15/2022 14:44:22 07/11/19 23 07/15/2022 COMPR EHENS FREDO METAB OLIC PANEL potassium 4.6 mmol/ L 3.5-5. 3 normal Not Available [address], [address], 07/15/2022 14:44:22 07/11/19 23 07/15/2022 COMPR EHENS FREDO METAB OLIC PANEL chloride 103 mmol/ L 98-110 normal Not Available [address], [address], 07/15/2022 14:44:22 07/11/19 23 07/15/2022 COMPR EHENS FREDO METAB OLIC PANEL carbon dioxide 31 mmol/ L 20-32 normal Not Available [address] [place], [address], 07/15/2022 14:44:22 07/11/19 23 07/15/2022 COMPR EHENS FREDO METAB OLIC PANEL calcium 9.4 mg/dL 8.6-10 .3 normal Not Available [address], [address], 07/15/2022 14:44:22 07/11/19 23 07/15/2022 COMPR EHENS FREDO METAB OLIC PANEL protein, total 6.7 g/dL 6.1-8. 1 normal Not Available [address], [address], 07/15/2022 14:44:22 07/11/19 23 07/15/2022 COMPR EHENS FREDO METAB OLIC PANEL albumin 3.9 g/dL 3.6-5. 1 normal Not Available [address], [address], 07/15/2022 14:44:22 07/11/19 23 07/15/2022 COMPR EHENS FREDO METAB OLIC PANEL globulin 2.8 g/dL_ (calc ) 1.9-3. 7 normal Not Available [address], [address], 07/15/2022 14:44:22 07/11/19 23 07/15/2022 COMPR EHENS FREDO METAB OLIC PANEL albumin/glob ulin ratio 1.4 (calc ) 1.0-2. 5 normal Not Available [address], [address], 07/15/2022 14:44:22 07/11/19 23 07/15/2022 COMPR EHENS FREDO METAB OLIC PANEL bilirubin, total 0.5 mg/dL 0.2-1. 2 normal Not Available [address], [address], 07/15/2022 14:44:22 07/11/19 23 07/15/2022 COMPR EHENS FREDO METAB OLIC PANEL alkaline phosphatase 85 U/L 35-144 normal Not Available [address], [address], 07/15/2022 14:44:22 07/11/19 23 07/15/2022 COMPR EHENS FREDO METAB OLIC PANEL AST 19 U/L 10-35 normal Not Available [address], [address], 07/15/2022 14:44:22 07/11/19 23 07/15/2022 COMPR EHENS FREDO METAB OLIC PANEL ALT 22 U/L 9-46 normal Not Available [address], [address], 07/15/2022 14:44:22 07/11/19 23 07/15/2022 ALBUM IN, RANDO M URINE W/CRE ATINI NE creatinine, random urine 184 mg/dL 20-320 normal Not Available [address], [address], 07/15/2022 14:44:22 07/11/19 23 07/15/2022 ALBUM IN, RANDO M URINE W/CRE ATINI NE albumin, urine 213.6 mg/dL see note: normal Refer ence Range : Refer ence Range Not estab lishe d Not Available [address], [address], 07/15/2022 14:44:22 07/11/19 23 07/15/2022 ALBUM IN, [...] a diagn ostic categ ory. Not Available [facility] [place] [address] [place], [address], 07/15/2022 14:44:22 07/11/1907/15/2022 HEMOG LOBIN A1C hemoglobin [...] diabe zonia for child fabiola. Not Available [facility] [address] [place], [address], 07/15/2022 14:44:23 07/11/19 23 07/15/2022 LIPID PANEL W/REF L DIREC T LDL, CARDI O IQ(R) cholesterol, total 133 mg/dL <200 Not Available [facility] [address] [place], [address], 07/15/2022 14:44:24 07/11/19 23 07/15/2022 LIPID PANEL W/REF L DIREC T LDL, CARDI O IQ(R) HDL cholesterol 43 mg/dL >39 Not Available [facility] [address] [address], [place], [address], 07/15/2022 14:44:24 07/11/19 23 07/15/2022 LIPID PANEL W/REF L DIREC T LDL, CARDI O IQ(R) triglyceride s 118 mg/dL <150 Not Available [facility] [address] [address], [place], [address], 07/15/2022 14:44:24 07/11/19 23 07/15/2022 LIPID PANEL W/REF L DIREC T LDL, CARDI O IQ(R) LDL-choleste rol 70 mg/dL _(khushi c) <100 Mayco able range <100 mg/dL for prima ry preve ntion ; <70 mg/dL for patie nts with CHD or diabe tic patie nts with >= 2 CHD risk facto rs. LDL-C is now calcu lated using the [facility] [employer] calcu latio n, which is a valid ated novel metho d provi ding zofia r accur acy than the [employer] ma[employer] equat ion in the estim ation of LDL-C . Anabel n SS et al. SURI. 2013; 310(1 9): 206- 2067 (http ://ed ati on.[employer]. com/f aq/FA Q164) LDL-C is now calcu lated using the [facility] [employer] calcu latio n, which is a valid ated novel metho d provi ding zofia r accur acy than the [employer] equat ion in the estim ation of LDL-C . Anabel n SS et al. SURI. 2013; 310(1 9): 206- 206 (http ://ed ati on.[employer]. com/f aq/FA Q164) Not Available [facility] [address] [address], [place], [address], 07/15/2022 14:44:24 07/11/19 23 07/15/2022 LIPID PANEL W/REF L DIREC T LDL, CARDI O IQ(R) chol/HDLC ratio 3.1 calc <3.6 Not Available [address], [address], 07/15/2022 14:44:24 07/11/19 23 07/15/2022 LIPID PANEL [...] peuti c optio n. Not Available [address], [address], 07/15/2022 14:44:24 09/15/19 23 09/15/2022 LIPID PANEL , STAND KHLOE cholesterol, total 149 mg/dL <200 normal Not Available [address], [address], 09/15/2022 17:10:02 09/15/19 23 09/15/2022 LIPID PANEL , STAND KHLOE HDL cholesterol 45 mg/dL > or = 40 normal Not Available [address], [address], 09/15/2022 17:10:02 09/15/19 23 09/15/2022 LIPID PANEL , STAND KHLOE triglyceride s 103 mg/dL <150 normal Not Available [address] [place], [address], 09/15/2022 17:10:02 09/15/19 23 09/15/2022 LIPID PANEL [...] 9): 2061- 206 (http ://ed ucati on.[employer]. com/f aq/FA Q164) Not Available [facility] [address] [place], [address], 09/15/2022 17:10:02 09/15/19 23 09/15/2022 LIPID PANEL , STAND KHLOE chol/HDLC ratio 3.3 (calc ) <5.0 normal Not Available [facility] [address] [address] , [place], [address], 09/15/2022 17:10:02 09/15/19 23 09/15/2022 LIPID PANEL , STAND KHLOE non HDL cholesterol 104 mg/dL _(khushi c) <130 normal For patie nts with diabe zonia plus 1 major ASCVD risk facto r, treat ing to a non-H DL-C goal of <100 mg/dL (LDL- C of <70 mg/dL ) is consi dered a thera peuti c optio n. Not Available [facility] [address] [place], [address], 09/15/2022 17:10:02 09/15/19 23 09/15/2022 DIREC T [...] 2 CHD risk facto rs. Not Available [address], [address], 09/15/2022 17:10:03 09/15/19 23 09/15/2022 COMPR EHENS FREDO METAB OLIC PANEL glucose 187 mg/dL 65-99 high Fasti ng refer ence inter flaco For someo ne witho ut known diabe zonia, a gluco se value >125 mg/dL indic ates that they may have diabe zonia and this shoul d be confi rmed with a follo w-up test. Not Available [address], [address], 09/15/2022 17:10:04 09/15/19 23 09/15/2022 COMPR EHENS FREDO METAB OLIC PANEL urea nitrogen (BUN) 34 mg/dL 7-25 high Not Available [address], [address], 09/15/2022 17:10:04 09/15/19 23 09/15/2022 COMPR EHENS FREDO METAB OLIC PANEL creatinine 1.56 mg/dL 0.70-1 .28 high Not Available [address], [address], 09/15/2022 17:10:04 09/15/19 23 09/15/2022 COMPR EHENS FREDO METAB OLIC PANEL eGFR 47 mL/mi n/1.7 3m2 > or = 60 low Not Available [address], [address], 09/15/2022 17:10:04 09/15/19 23 09/15/2022 COMPR EHENS FREDO METAB OLIC PANEL BUN/creatini ne ratio 22 (calc ) 6-22 normal Not Available [address] [place], [address], 09/15/2022 17:10:04 09/15/19 23 09/15/2022 COMPR EHENS FREDO METAB OLIC PANEL sodium 138 mmol/ L 135-14 6 normal Not Available [address], [address], 09/15/2022 17:10:04 09/15/19 23 09/15/2022 COMPR EHENS FREDO METAB OLIC PANEL potassium 5.5 mmol/ L 3.5-5. 3 high Not Available [address], [address], 09/15/2022 17:10:04 09/15/19 23 09/15/2022 COMPR EHENS FREDO METAB OLIC PANEL chloride 104 mmol/ L 98-110 normal Not Available [address], [address], 09/15/2022 17:10:04 09/15/19 23 09/15/2022 COMPR EHENS FREDO METAB OLIC PANEL carbon dioxide 29 mmol/ L 20-32 normal Not Available [address], [address], 09/15/2022 17:10:04 09/15/19 23 09/15/2022 COMPR EHENS FREDO METAB OLIC PANEL calcium 9.6 mg/dL 8.6-10 .3 normal Not Available [address], [address], 09/15/2022 17:10:04 09/15/19 23 09/15/2022 COMPR EHENS FREDO METAB OLIC PANEL protein, total 7.3 g/dL 6.1-8. 1 normal Not Available [address], [address], 09/15/2022 17:10:04 09/15/19 23 09/15/2022 COMPR EHENS FREDO METAB OLIC PANEL albumin 4.2 g/dL 3.6-5. 1 normal Not Available [address], [address], 09/15/2022 17:10:04 09/15/19 23 09/15/2022 COMPR EHENS FREDO METAB OLIC PANEL globulin 3.1 g/dL_ (calc ) 1.9-3. 7 normal Not Available [address], [address], 09/15/2022 17:10:04 09/15/19 23 09/15/2022 COMPR EHENS FREDO METAB OLIC PANEL albumin/glob ulin ratio 1.4 (calc ) 1.0-2. 5 normal Not Available [address], [address], 09/15/2022 17:10:04 09/15/19 23 09/15/2022 COMPR EHENS FREDO METAB OLIC PANEL bilirubin, total 0.5 mg/dL 0.2-1. 2 normal Not Available [address], [address], 09/15/2022 17:10:04 09/15/19 23 09/15/2022 COMPR EHENS FREDO METAB OLIC PANEL alkaline phosphatase 86 U/L 35-144 normal Not Available [address], [address], 09/15/2022 17:10:04 09/15/19 23 09/15/2022 COMPR EHENS FREDO METAB OLIC PANEL AST 17 U/L 10-35 normal Not Available [address], [address], 09/15/2022 17:10:04 09/15/19 23 09/15/2022 COMPR EHENS FREDO METAB OLIC PANEL ALT 20 U/L 9-46 normal Not Available [address], [address], 09/15/2022 17:10:04 09/15/19 23 09/15/2022 ALBUM IN, RANDO M URINE W/CRE ATINI NE creatinine, random urine 89 mg/dL 20-320 normal Not Available [facility] [address] [address], [place], [address], 09/15/2022 17:10:05 09/15/19 23 09/15/2022 ALBUM IN, RANDO M URINE W/CRE ATINI NE albumin, urine 117.6 mg/dL see note: normal Refer ence Range : Refer ence Range Not estab lishe d Not Available [place] [address] [facility] [place], [address], 09/15/2022 17:10:05 09/15/19 23 09/15/2022 ALBUM IN, [...] a diagn ostic categ ory. Not Available [facility] [address] [place], [address], 09/15/2022 17:10:05 09/15/19 23 09/15/2022 HEMOG LOBIN [...] diabe zonia for child fabiola. Not Available [facility] [place] [address] [facility] [place], [address], 09/15/2022 17:10:05 Result Notes None recorded. Problems Name Problem SNOMED Code Status Onset Date Resolution Date Notes Provider Name and Address Organization Details Recorded Time Hypertensive disorder 45343754 Active 2018 Not Available [facility] 3 00:50:21 Type 2 diabetes mellitus 23983226 Active 2018 Not Available [facility] 3 00:50:21 Hyperlipidemi a 90442031 Active 2019 Not Available [facility] 3 00:50:21 Congestive heart failure 58001133 Active 2019 Not Available [facility] 3 00:50:21 Uncontrolled type 2 diabetes mellitus 189957055 Active 2022 Angelica Szymanski MD [address], [place], [address] , [facility] 3 12:45:39 Proteinuria 58362559 Active 2022 Angelica Szymanski MD [address], [place], [address] , [facility] 3 12:47:15 Dyslipidemia 143761468 Active 2022 Angelica Szymanski MD [address], [place], [address] , [facility] 3 12:48:31 Essential hypertension 24339510 Active 2022 Angelica Szymanski MD [address], [place], [address] , [place] [employer] [facility] 3 12:46:01 Notes:Some problems listed i n Document: #[id number] could not be added to this patient's chart. Please review this document and add these problems to the patient's chart manually as needed. Problem Notes None recorded. Procedures Surgical History Date Name Laterality Status Provider Name and Address Organization Details Recorded Time heart valve replacement completed Not Available [facility] 04/08/2022 00:45:34 Cataract Surgery completed Not Available [facility] 04/08/2022 00:45:34 Knee Surgery completed Not Available [facility] 04/08/2022 00:45:34 Imaging Results None recorded. Procedure [...] % 98 % 70 /min 97.7 [degF] 725084. 35 g 145/100 mm[Hg] Not Available [facility] 3 00:46:43 Date Recorded Body height Body mass index (BMI) Body weight Heart rate Body temperature Systolic And Diastolic Provider Name and Address Organization Details Last Updated DateTime 3 175.26 cm 40.8 kg/m2 092118. 49 g 83 /min 97.9 [degF] 146/82 mm[Hg] Yeni Dudley CMA [facility] 3 12:28:35 Date Recorded Body mass index (BMI) Body height Oxygen saturation Oxygen saturation in Arterial blood by Pulse oximetry Heart rate Body temperature Body weight Systolic And Diastolic Provider Name and Address Organization Details Last Updated DateTime 2 39.4 kg/m2 175.26 cm 96 % 96 % 56 /min 97.7 [degF] 475468. 16 g 160/80 mm[Hg] Not Available [facility] 3 00:46:43 Date Recorded Body height Body mass index (BMI) Body weight Body temperature Respiratory rate Heart rate Systolic And Diastolic Provider Name and Address Organization Details Last Updated DateTime 3 175.26 cm 40.3 kg/m2 390640. 44 g 97.8 [degF] 18 /min 74 /min 182/84 mm[Hg] Jes Russo RN SD [facility] 3 12:22:20 Date Recorded Body mass index (BMI) Body height Oxygen saturation Oxygen saturation in Arterial blood by Pulse oximetry Heart rate Body temperature Body weight Systolic And Diastolic Provider Name and Address Organization Details Last Updated DateTime 2 40.2 kg/m2 175.26 cm 97 % 97 % 77 /min 97.8 [degF] 096234. 12 g 160/90 mm[Hg] Not Available [facility] 3 00:46:43 Social History Question Answer Notes LastModified by [facility] Details LastModified Time Tobacco Smoking Status Never Smoker Not Available [facility] 04/08/2022 00:43:21 What Is Your Level Of Caffeine Consumption? Occasional [id number] Information not available 04/08/2022 How Much Tobacco Do You Chew? None [id number] Information not available 04/08/2022 In The 14 Days Before Symptom Onset, Have You Had Close Contact With A Laboratory-confirm ed COVID-19 While That Case Was Ill? No [id number] Information not available 04/08/2022 In The 14 Days Before Symptom Onset, Have You Had Close Contact With A Person Who Is Under Investigation For COVID-19 While That Person Was Ill? No [id number] Information not available 04/08/2022 Which Illicit Or Recreational Drugs Have You Used? None [id number] Information not available 04/08/2022 What Is Your Relationship Status? [id number] Information not available 04/08/2022 Have You Recently Traveled Abroad? No [id number] Information not available 04/08/2022 Sex: Unknown Functional Status Question Answer Note LastModified by [facility] Details LastModified Time What is your level of alcohol consumption? None [id number] Information not available 04/08/2022 Do you or have you ever used smokeless tobacco? Never used smokeless tobacco [id number] Information not available 04/08/2022 Do you or have you ever used e-cigarettes or vape? Never used electronic cigarettes [id number] Information not available 04/08/2022 Mental Status None recorded. Family History Nothing Reported Notes:leaky heart valve Medical History Condition Response DIABETES, TYPE Y HIGH CHOLESTEROL / HYPERLIPIDEMIA Y HYPERTENSION Y Past Encounters Encounter ID Performer Location Encounter Start Date Encounter Closed Date Diagnosis/Indication Diagnosis SNOMED-CT Code Diagnosis ICD10 Code Diagnosis IMO Codes Diagnosis Note [id number] [facility] [address] [place] [address] 04/08/2020 00:00:00 04/08/2020 17:58:24 [id number] [facility] [address] [place] [address] 06/24/2020 00:00:00 06/24/2020 12:50:46 [id number] Angelica Szymanski MD [facility] [address] [place] [address] 07/26/2020 00:00:00 07/26/2020 12:47:55 [id number] Angelica Szymanski MD [facility] [address] [place] [address] 11/25/2020 00:00:00 11/25/2020 12:03:02 [id number] Angelica Szymanski MD [facility] [address] [place] [address] 03/31/2021 00:00:00 03/31/2021 12:27:01 [id number] Angelica Szymanski MD [facility] [address] [place] [address] 07/14/2021 00:00:00 07/14/2021 13:59:32 [id number] Angelica Szymanski MD [facility] [address] [place] [address] 11/28/2021 00:00:00 11/28/2021 21:17:18 [id number] Angelica Szymanski MD [facility] [address] [place] [address] 2022 12:12:26 2022 12:57:45 Uncontrolled type 2 diabetes mellitus 952401541 E11.65 A1C of 8.8% up from 8.6%- [...] with dexcom for close monitoring . 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 He voiced understand ing. Dyslipidemia 446319720 E 78.5 LDL in range, continue on [...] he chooses to go outside of the [facility] to obtain labwork he was [...] in his case. He voiced understand ing. [id number] Angelica Szymanski MD [facility] [address] [place] [address] 09/25/2022 12:04:04 09/25/2022 12:59:26 Uncontrolled type 2 diabetes mellitus 695451579 E11.65 A1C of 10.3% up from 8.6%- [...] to endocrinol ogy per patient request. Dyslipidemia 700119943 E 78.5 LDL in range, continue on statin therapy. Essential hypertension 55545631 I10 Follows nephrology for CKD and hypertensi [...] Myrick Member ID Guarantor Name 09/22/[address] [facility] (MEDICARE REPLACEMENT/A DVANTAGE - HMO) [id number] Kole Love [id number] Kole Arizmendi Kate Notes Date Note Type [...] normalmicroalbumin 1852 ug/mg Angelica Szymanski MD [address] [facility], [facility] [address], [place], [address], [facility] [employer] 2022 13:54:58 09/25/2022 text/html ROS as noted [...] for close monitoring. 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 He was struggling with [...] ug/mgCr 1.56 mg/dL with GFR 47 ml/minLFT [id number]/103/45/84 Angelica Szymanski MD [address] [facility] [address], [place], [address], [facility] [place] [facility] 09/25/2022 12:46:45
--- OUTSIDE RECORDS SUMMARY | 2024-12-28 03:48 | XMS_ITS | Encounter Summary ---
Author Organization [facility] Address [address] [place] [address] Care Team Providers Care Cover Marker Name Role Phone Josefa Almaraz MD Primary Care Provider Reason for Visit * Reason Onset Date Comments Scheduling 06/16/2024 Encounter Details Date Type Department Care Team (Late Contact Info) Description 06/16/2024 Telephone [facility] - Ophthalmology [address] [place] [phone] Toyin Coombs MD [address] [place] [address] [place] [phone] Scheduling Social History Tobacco Use Types Packs/Day [...] Department Care Team (Late Contact Info) Description 01/08/2025 3:00 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
--- OUTSIDE RECORDS SUMMARY | 2024-12-28 03:48 | XMS_ITS | Encounter Summary ---
Author Organization [facility] Address [address] [place] [address] Phone Care Team Providers Care Library Aide Name Role Phone Josefa Almaraz MD Primary Care Provider Encounter Details Date Type Department Care Team (Late st Contact Info) Description 03/03/2022 Hospital/ED/SNF/HH Visit [facility] Nephrology and Hypertension [address] [facility], [address] [facility] [place] [address] Poli Hoyos MD [address] [facility] [place] [address] Social History Tobacco Use Types Packs/Day Years [...] on file documented as of this encounter Plan of Treatment Not on file documented as of this encounter Visit Diagnoses Not on filedocumented in this encounter Care Teams Library Aide Relationship Specialty Start Date End Date Josefa Almaraz MD [address] [place] [address] PCP - General Internal Medicine 12/05/19 documented as of this encounter
--- OUTSIDE RECORDS SUMMARY | 2024-12-28 03:48 | XMS_ITS | Encounter Summary ---
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
--- OUTSIDE RECORDS SUMMARY | 2024-12-28 03:48 | XMS_ITS | Clinical Summary ---
Author Organization [facility] Address [address] [place] [address] Care Team Providers Care Stock Broker Name Role Phone Josefa Almaraz MD Primary Care Provider Source Comments [facility],non-owned Affiliates and Associated Physician Practices is amultiple site organization consisting of ambulatory clinics and hospital sitesin [place], [place] and [place]. This disclosure is being madepursuant to the Care Everywhere program and may not contain all information available regarding this patient. Last updated 17.[facility] Allergies No known active allergies Medications * [...] and evening meal Active Cholecalciferol 1.25 MG (27846 UT) Take 1 capsule by mouth every [...] Active vitamin D, ergocalciferol, (Drisdol) 1.25 MG (17216 UT) capsule Take 1 (one) capsule by [...] times daily 04/12/19 025 Discontin ued(List Clean-Up) Active Problems No known active problems Encounters Date Type Department Care Team Description 12/25/2024 1:30 PM BODY WORKER Office Visit [facility] - Ophthalmology [address] [place] [phone] Toyin Coombs MD Diplopia (Primary Dx); Exotropia, alternating, with A pattern 12/25/2024 Travel 12/19/2024 7:36 AM BODY WORKER Anesthesia Event [facility] [address] [place] [phone] Jacobo Leon MD Bair, Jenelle, 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 12/19/2024 7:25 AM BODY WORKER - 12/19/2024 9:15 AM BODY WORKER Surgery [facility] [address] [place] [address] [phone] Toyin Coombs MD left lateral recession and left medial resection 12/19/2024 6:26 AM BODY WORKER - 12/19/2024 10:49 AM BODY WORKER Hospital Encounter [facility] [address] [place] [phone] Toyin Coombs MD Surgery General Discharge Disposition: [...] Comments Blood Pressure 156/82 12/19/2024 10:00 AM BODY WORKER Pulse 75 12/19/2024 10:00 AM BODY WORKER Temperature 36.2 C (97.2 F) 12/19/2024 6:49 AM BODY WORKER Respiratory Rate 15 12/19/2024 10:0 0 AM BODY WORKER Oxygen Saturation 93% 12/19/2024 10: 00 AM BODY WORKER Inhaled Oxygen Concentration - - Weight 121.7 kg (268 lb 6.4 oz) 12/19/2024 6:38 AM BODY WORKER Height 175.3 cm (5' 9) 12/19/2024 6:38 AM BODY WORKER Body Mass Index 39.64 12/19/2024 6:38 AM BODY WORKER Plan of Treatment Upcoming Encounters Date Type Department Care Team (Late st Contact Info) Description 01/08/2025 3:00 PM BODY WORKER Office Visit [facility] - Ophthalmology [address] [place] [phone] Toyin Coombs MD [facility] [place] [phone] Health Maintenance Due Date Last Done Comments [...] 50+ (1 of 1 - PCV) 2000 Respiratory Syncytial Virus (RSV) Vaccine Pt: or over 60 yrs (1 - Risk 50-74 years 1-dose series) 2000 ZOSTER VACCINE (1 of 2) 2000 DEPRESSION SCREENING 02/09/2024 MEDICARE AWV CALENDAR YEAR 2024 COVID-19 VACCINE (1 - 2024-2 6 season) 2024 INFLUENZA VACCINE (#1) 2024 HEPATITIS B VACCINE Aged Out No longe [...] POINT OF CARE Routine 12/19/2024 9:46 AM BODY WORKER [employer] Routine 12/19/2024 7:53 AM BODY WORKER DC STRABISMUS SURG,ONE VERT MUSCLE 12/19/2024 7:30 AM BODY WORKER Diplopia Exotropia, alternating, with A pattern Special Needs [facility] DC STRABISMUS SURG,ONE HORIZ MUSCLE 12/19/2024 7:30 AM BODY WORKER Diplopia Exotropia, alternating, with A pattern Special Needs [facility] GLUCOSE - POINT OF CARE Routine 12/19/2024 7:03 AM BODY WORKER from Last 3 Months Results * (ABNORMAL) GLUCOSE - POINT OF CARE (12/19/2024 9:46 AM BODY WORKER) Only the most recent of2 resultswithin the time period is included. Glucose WB/POC 127(H) 70 - 99 mg/dL 12/19/2024 9:47 AM BODY WORKER [facility] Specimen Type Arterial/C apillary 12/19/2024 9:47 AM BODY WORKER [facility] Blood BLOOD SPECIMEN / Unknown 12/19/2024 9:46 AM BODY WORKER 12/19/2024 9:47 AM BODY WORKER us Toyin Coombs MD LAB - POINT OF CARE ORDERABLES Final Result [facility] [address] [phone], [facility] [phone] * [employer] (12/19/2024 7:53 AM BODY WORKER) Narrative Maxx Pichardo APRN-CRNA - 12/19/2024 7:53 AM BODY WORKER Maxx Pichardo APRN-CRNA 12/19/2024 7:55 AM LMA [...] nal Result from Last 3 Months Insurance MANAGED MEDICARE ADV [facility] MANAGED MEDICARE ADV Care Teams Stock Broker Relationship Specialty Start Date End Date Josefa Almaraz MD [address] [place] [phone] PCP - General 08/23/20
--- OUTSIDE RECORDS SUMMARY | 2024-12-28 03:48 | XMS_ITS | Clinical Summary ---
Author Organization [facility] Address [address] [place] [address] Care Team Providers Care Bilingual Teacher Assistant Name Role Phone Josefa Almaraz MD Primary Care Provider William Kramer MD Unavailable Angelica Gardner MD Unavailable [phone] Jocelyn Charles MD Unavailable [phone] Allergies No known active allergies Medications [...] 02/28/2018 Assessment & Plan (02/28/2018 12:46 PM PRINTING MACHINIST): Pt has HTN and bp not to goal Recommend: Add amlodipine 5 mg a day F/u bp Creatinine improved. May need to add back ANA inhibitor (was on benazepril) also. Volume overload 02/26/2018 Assessment & Plan (03/01/2018 11:02 AM PRINTING MACHINIST): Cr stable Continue lasix BID CKD (chronic kidney disease) stage 3, GFR 30-59 ml/min 02/23/2018 Assessment & Plan (02/25/2018 10:54 AM PRINTING MACHINIST): Creatinine down a bit to 2.0 today. [...] events. Assessment & Plan (02/24/2018 6:04 PM PRINTING MACHINIST): Creatinine 2.19 today CKD3 in the setting of intense insulin regimen, insulin resistance, post- operative stress, and variable oral intake places patient at increased risk of hypoglycemia due to the decreased clearance of insulin. We will continue to intensely monitor blood glucose and titrate insulin as needed to optimize glycemic control to avoid hypoglycemic/hyperglycemic events. Assessment & Plan (03/02/2018 12:34 PM PRINTING MACHINIST): Acute on chronic kidney disease Stage 3 Creat stable- 1.47 today Continue IV lasix Daily BMP Assessment & Plan (02/23/2018 11:53 AM PRINTING MACHINIST): Patient w/ CKD (baseline Cr 1.2), likely stage 3 if using GFR to classify - f/u daily BMP and monitor UOP and dose response to diuretics - Vancomycin to be discontinued after 2 doses - f/u Potassium levels while receiving Lasix Acute post-operative pain 02/22/2018 Assessment & Plan (02/24/2018 10:02 AM PRINTING MACHINIST): Continue scheduled tylenol Oxy PRN Continue to assess pain level Assessment & Plan (02/23/2018 11:51 AM PRINTING MACHINIST): Patient reports pain controlled w/ medications this AM - Regimen to include scheduled Tylenol, PRN Oxycodone - may begin topical Lidocaine patch Assessment & Plan (02/22/2018 4:51 PM PRINTING MACHINIST): Anticipated post CTSX with sternotomy. -Dilaudid 0.5mg Q30min while intubated -after OGT placed and verified start PT tylenol -lidocaine patches to anterior chest wall CAD (coronary artery disease) 02/16/2018 Overview (02/16/2018): Added automatically from request for surgery [id number] Assessment & Plan (02/28/2018 12:51 PM PRINTING MACHINIST): S/p cabg x 1 vessel for OMB stenosis. EKG with Q 3, avF without change c/w preop 01/17/18 Continue asa, statin Assessment & Plan (02/25/2018 10:54 AM PRINTING MACHINIST): S/P AVR and CABG on 02/22/18; optimal glycemic control needed for healing to avoid adverse events. Assessment & Plan (02/24/2018 6:05 PM PRINTING MACHINIST): S/P AVR and CABG on 02/22/18; optimal glycemic control needed for healing to avoid adverse events. Assessment & Plan (02/22/2018 4:57 PM PRINTING MACHINIST): S/p CABG X1 (SVG -> OM). 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 The LAD and dominant RCA have mild narrowing -ASA AK now -ASA and high dose statin POD 1 -CMP with AML to evaluate liver function after CPB prior to starting stain Assessment & Plan (03/01/2018 11:25 AM PRINTING MACHINIST): S/p CABG 02/22/18 SVG-OM Continue ASA, statin and betablocker No increase in BB 2/2 previous heart block per Dr Kramer Will d/c PW today Will increase Norvasc to home dose Increase activity as tolerated/OOB/PT Class 3 severe obesity with serious comorbidity in adult 12/22/2017 Assessment & Plan (12/22/2017 6:15 PM PRINTING MACHINIST): Associated with sleep apnea and obesity-hypoventilation, dyspnea, and metabolic syndrome. Needs weight loss (of fat) with diet and exercise (as tolerated). Physical deconditioning 12/22/2017 Assessment & Plan (12/22/2017 6:14 PM PRINTING MACHINIST): Associated with dyspnea. Exercise rehabilitation, when able. 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 Rx per other problems. When cardiac status tuned up, would get complete PFT, ABG, and oxygen assessment with exertion. Based on these tests and clinical course, would decide if HRCT needed. Obstructive sleep apnea 12/21/2017 Overview (02/21/2018): Continue CPAP Assessment & Plan (02/23/2018 11:45 AM PRINTING MACHINIST): Patient utilizes CPAP at home, currently on Opti- flow to maintain SPO2 >92% - Discontinue Opti- flow and add nasal cannula - OOB/PT and encourage IS for atelectasis Assessment & Plan (02/21/2018 2:17 PM PRINTING MACHINIST): Continue CPAP Assessment & Plan (12/23/2017 12:48 PM PRINTING MACHINIST): Severe JENNIFER diagnosed on sleep study this admission -recommend BiPAP /, backup rate 12, 4L oxygen, HOB 30 degrees -pulm consulted: recommend PFT, ABG, and oxygen assessment with exertion Assessment & Plan (12/23/2017 9:04 AM PRINTING MACHINIST): Pt with documented severe JENNIFER. Obese, HTN, bradycardia with Wenckebach ast night. Management per sleep medicine/pulmonary Assessment & Plan (12/23/2017 4:47 PM PRINTING MACHINIST): Official sleep study report confirms obstructive sleep apnea with a concomitant central component. Will continue with current nocturnal BiPAP setting. Mallampati Class III: soft palate visible, but uvula and pillars NOT visible; hard palate visible. STOP-Bang questionnaire: 5 points = high risk for JENNIFER (Age, male, neck size high, BMI high, HTN) Startex Sleepiness Scale = Higher Normal Daytime Sleepiness [...] for at least an hour before bed. [place] bed for sleeping. Do not have screen [...] routine. Assessment & Plan (12/22/2017 9:40 AM PRINTING MACHINIST): Concern for JENNIFER -pt underwent sleep study last night - await results -pulm c/s Assessment & Plan (12/22/2017 6:12 AM PRINTING MACHINIST): Pt with concern for JENNIFER. Obese, HTN, bradycardia with Wenckebach ast night. Pt had sleep study overnight. Await results and pulm consultation. Assessment & Plan (12/21/2017 7:00 AM PRINTING MACHINIST): Pt with concern for JENNIFER. Obese, HTN, bradycardia with Wenckebach ast night. Order sleep study consultation please. Heart block 12/21/2017 Assessment & Plan (02/28/2018 12:44 PM PRINTING MACHINIST): Pt with asymptomatic AV block Currently on carvediolol. Pt with known h.o. Asymptomatic AV block. Would decrease coreg back to 6.25 mg bid as pt was having bradycardia/Wenckebach on the higher dose as outpt. Follow telemetry in hospital Assessment & Plan (12/23/2017 12:48 PM PRINTING MACHINIST): Noted to have 2ndHB at night likely 2/2 JENNIFER -coreg decreased -cont telemetry Assessment & Plan (12/23/2017 9:02 AM PRINTING MACHINIST): Stable on monitor. Likely exacerbated by JENNIFER untreated. Treat JENNIFER is planned. No indications for pacemaker Assessment & Plan (12/22/2017 9:33 AM PRINTING MACHINIST): Noted to have 2ndHB at night likely 2/2 JENNIFER -coreg decreased -cont telemetry Assessment & Plan (12/21/2017 10:06 AM PRINTING MACHINIST): Noted to have 2ndHB overnight last night [...] QD Assessment & Plan (03/02/2018 10:04 AM PRINTING MACHINIST): The patient has good glycemic control on [...] glucoses QID Follow up with PCP and sandblaster supervisor Assessment & Plan (03/01/2018 8:54 AM PRINTING MACHINIST): The patient has good glycemic control on [...] glucoses QID Follow up with PCP and sandblaster supervisor Assessment & Plan (02/25/2018 10:55 AM PRINTING MACHINIST): Glycemic control complicated by post-operative stress, insulin [...] to discharge FOLLOW UP: - PCP or sandblaster supervisor; need to discuss with patient prior to discharge Recommendations for diabetes management were discussed with the primary team. Assessment & Plan (02/24/2018 6:33 PM PRINTING MACHINIST): Glycemic control complicated by post-operative stress, insulin [...] to discharge FOLLOW UP: - PCP or sandblaster supervisor; will discuss this with Mr. Love tomorrow to determine his preference Recommendations for diabetes management were discussed with the primary team. For questions regarding this patient today, please call Brisa Burnham NP at [phone]. If after hours, please contact the Diabetes Fellow at [phone]. Assessment & Plan (02/23/2018 11:43 AM PRINTING MACHINIST): Glycemic control maintained on Insulin infusion. Patient w/ DM on 2 oral agents and insulin (Pre-op Hgb A1C 10) - Transition to HD SSI and discontinue Insulin infusion - May require basal Insulin in addition, will assess after diet started Assessment & Plan (02/22/2018 4:54 PM PRINTING MACHINIST): Arrived from OR on insulin gtt. -continue insulin gtt per ICU protocol -when stable, consider transitioning to SSI Assessment & Plan (03/01/2018 11:10 AM PRINTING MACHINIST): A1C 10 on admission BS in better control Endocrine following- no in patient changes today DISCHARGE RECOMMENDATIONS: Tresiba 44 units daily Humalog 15 units TID with meals No glimepiride, metformin (home meds) because of renal insufficiency. He has had diabetes education and can inject insulin. Monitor glucoses QID Follow up with PCP and sandblaster supervisor Assessment & Plan (12/23/2017 12:49 PM PRINTING MACHINIST): -cont accu checks and lispro SSI -consistent carb diet Assessment & Plan (12/22/2017 9:31 AM PRINTING MACHINIST): -cont accu checks and lispro SSI -consistent carb diet Assessment & Plan (12/22/2017 6:11 AM PRINTING MACHINIST): Glucose stable overnight. follow Assessment & Plan (12/21/2017 10:36 AM PRINTING MACHINIST): Glucose appears well controlled although pt states he was lightheaded overnight similar to hypoglycemia symptoms -will decrease sliding scale to low dose and monitor -DM diet Abnormal EKG 08/15/2017 Aortic stenosis 06/10/2015 Overview (02/21/2018): TTE shows severe Prep for AVR in am Assessment & Plan (02/28/2018 12:51 PM PRINTING MACHINIST): S/p AVR with stable valve exam Assessment & Plan (02/22/2018 4:52 PM PRINTING MACHINIST): S/p AVR (bio) and CABG X1 ASA AK X1 now ASA and high dose statin QD POD 1 DVT prophylaxis: SCDs, SQH POD1 GI prophylaxis : QD H2 michael Bowel regimen: Docusate/Colace Diet: NPO Glucose control: as outlined PT: To evaluate and treat when pt stable Assessment & Plan (02/26/2018 11:20 AM PRINTING MACHINIST): S/p AVR 02/22/2018 Continue post operative care See plan for CABG Assessment & Plan (12/24/2017 6:58 AM PRINTING MACHINIST): Pt with severe . The cause of his HFpEF is due to severe , severe HTN, and exacerbated by likely untreated JNENIFER with hypoventilation. Pt saw dr. Gates today and plans for outpt work up to see if TAVR candidate. Pt agrees. Assessment & Plan (12/23/2017 11:59 AM PRINTING MACHINIST): -TTE with severe , GRACE: 1.1 cm2, AV Pressure Gradient: Mean: 37, Peak:67 -continue gentle diuresis -plan for R/LHC today as preop eval Assessment & Plan (12/23/2017 9:01 AM PRINTING MACHINIST): Pt with severe . The cause of his HFpEF is due to severe , severe HTN, and exacerbated by likely untreated JENNIFER with hypoventilation. Cath today Further discussion later today about options for management, SAVR versus TAVR... Assessment & Plan (12/22/2017 7:01 PM PRINTING MACHINIST): Contributes to dyspnea. Rx per cardiology. Assessment & Plan (12/22/2017 9:36 AM PRINTING MACHINIST): Last GRACE 1cm2 -TTE with severe , GRACE: 1.1 cm2, AV Pressure Gradient: Mean: 37, Peak:67 -continue gentle diuresis -plan for R/LHC in AM Assessment & Plan (12/22/2017 6:10 AM PRINTING MACHINIST): Pt with severe . The cause of his HFpEF is due to severe , severe HTN, and exacerbated by likely untreated JENNIFER with hypoventilation. Diuresis with IV lasix Consult pulmonary for JENNIFER treatement and preop evaluation before AVR. Assessment & Plan (12/21/2017 10:33 AM PRINTING MACHINIST): Last GRACE 1cm2 -check echo -gentle diuresis Assessment & Plan (12/21/2017 6:53 AM PRINTING MACHINIST): Pt with severe . Plan echo to evaluate , pulm HTN, LV and RVEF. Diuresis with IV lasix Hyperlipidemia 05/07/2014 Overview (02/21/2018): Low fat diet Check FLP Continue Crestor Assessment & Plan (02/25/2018 10:54 AM PRINTING MACHINIST): We recommend continuing statin therapy. Assessment & Plan (02/24/2018 6:05 PM PRINTING MACHINIST): We recommend continuing statin therapy. Assessment & Plan (02/21/2018 2:16 PM PRINTING MACHINIST): Check FLP Low fat diet Continue statin Assessment & Plan (12/23/2017 12:48 PM PRINTING MACHINIST): -cont statin Assessment & Plan (12/22/2017 9:27 AM PRINTING MACHINIST): -cont statin Assessment & Plan (12/21/2017 10:38 AM PRINTING MACHINIST): -cont crestor Essential hypertension 10/30/2013 Overview (02/21/2018): Continue Norvasc, Atenolol, Coreg, Hydralazine Hold Lisinopril for OR Assessment & Plan (02/24/2018 6:06 PM PRINTING MACHINIST): Managed per primary team Assessment & Plan (02/22/2018 4:49 PM PRINTING MACHINIST): Pt is on 5 antihypertensives at home. Current contributing factors include: inotropic support, pacing faster than intrinsic rhythm, and pain -treat pain as outlined -No PATIENTS TRANSPORTER wean at this time -nicardipine for SBP goal < 140 to protect aortotomy sites Assessment & Plan (03/01/2018 11:13 AM PRINTING MACHINIST): Tele shows first degree block, no further 2:[address] Kramer- will continue Coreg at 6.25 and increase Norvasc to 10 mg daily (home dose) Continue q 4 hour VS Assessment & Plan (12/24/2017 6:59 AM PRINTING MACHINIST): BPimproved overnight nd likely also leading to exacerbation of HFpEF. Untreated JENNIFER also a factor in HTN. Recommend: Continue present BP meds. F/u bp as outpt. Assessment & Plan (12/23/2017 12:15 PM PRINTING MACHINIST): BP above goal -hydralazine increased to 25mg tid, may need to further increase after cath -cont norvasc, losartan and lisinopril -coreg decreased 2/2 bradycardia and heart block Assessment & Plan (12/23/2017 9:03 AM PRINTING MACHINIST): BP remains elevated and likely also leading to exacerbation of HFpEF. Untreated JENNIFER also a factor in HTN. Recommend: Further bp meds after cath Assessment & Plan (12/22/2017 9:26 AM PRINTING MACHINIST): BP above goal -increase hydralazine to 25mg tid -cont norvasc, losartan and lisinopril -coreg decreased 2/2 bradycardia and heart block Assessment & Plan (12/22/2017 6:12 AM PRINTING MACHINIST): BP remains elevated and likely also leading to exacerbation of HFpEF. Recommend: Add hydralazine increase hydralazine to 25 mg tid. Follow bp carefully. JENNIFER evaluation in progress Order UA with dipstick to evaluate for proteinuria. Assessment & Plan (12/21/2017 12:34 PM PRINTING MACHINIST): Pt hypertensive -cont norvasc, losartan and lisinopril, add hydralazine -decrease coreg 2/2 bradycardia and heart block Assessment & Plan (12/21/2017 7:00 AM PRINTING MACHINIST): Pt with severe overnight. Recommend: Add hydralazine 10 mg tid. Follow bp carefully. JENNIFER evaluation Order UA with dipstick to evaluate for proteinuria. Resolved Problems Problem Noted Date Diagnosed Date Resolved Date Urinary retention 02/26/2018 03/01/2018 High risk medication use 02/24/2018 Assessment & Plan (02/25/2018 10:55 AM PRINTING MACHINIST): Intense insulin regimen in the setting of variable PO intake, and CKD3 places patient at increased risk of hypoglycemia. We will continue to intensely monitor blood glucose and titrate insulin as needed to optimize glycemic control to avoid hypoglycemic/hyperglycemic events. Assessment & Plan (02/24/2018 6:02 PM PRINTING MACHINIST): Intense insulin regimen in the setting of variable PO intake, and CKD3 places patient at increased risk of hypoglycemia. We will continue to intensely monitor blood glucose and titrate insulin as needed to optimize glycemic control to avoid hypoglycemic/hyperglycemic events. Myocardial stunning 02/22/2018 02/23/19 Assessment & Plan (02/22/2018 4:40 PM PRINTING MACHINIST): Anticipated post CPB. Post CPB TINO with normal BiV function on PATIENTS TRANSPORTER 3mcg/kg/min. Underlying rhythm NSR with 1st degree AVB. Arrived with CI 2.1, SVR 1000, CVP 15, and low SVO2 52, PAP 1/3 systemic -increase paced rate to 88 and reshoot thermodilution CO -1u PRBC now per Dr Wade for symptomatic anemia -hold PATIENTS TRANSPORTER at 3mcg/kg/min and consider wean once pt extubated if CI and SVO2 improve with PRBC Acute pulmonary insufficiency 02/22/2018 02/23/2018 Assessment & Plan (02/22/2018 4:45 PM PRINTING MACHINIST): Post-procedural short-term ventilatory support with anticipated extubation. [...] 19 Assessment & Plan (12/22/2017 6:59 PM PRINTING MACHINIST): Dyspnea, multifactorial. Associated obesity, physical deconditioning, cardiac disease (and intermittently with pleural effusions and pulmonary edema). See assessment and plan for each of those problems. When cardiac status tuned up, would get complete PFT. Based on PFT and clinical course, would decide if HRCT needed. Hypoventilation associated with obesity 12/22/2017 02/24/2018 Assessment & Plan (02/21/2018 2:20 PM PRINTING MACHINIST): Provide CPAP Assessment & Plan (12/22/2017 8:03 PM PRINTING MACHINIST): Concern for hypoventilation given hypercapnia noted on most recent ABG. Will check for central hypoventilation on official sleep study report. -See JENNIFER problem. Edema of both lower extremities 12/22/2017 02/24/2018 Overview (12/22/2017): L>R with dependent rubor Assessment & Plan (12/22/2017 6:47 PM PRINTING MACHINIST): Asymmetric. Likely secondary to heart failure and renal insufficiency, but would eval for DVT with bilateral lower extremity venous duplex. Agree with cautious gradual diuresis. Dependent rubor 12/22/2017 02/24/2018 Left ventricular diastolic dysfunction 12/22/2017 02/24/2018 Pleural effusion 12/22/2017 02/24/2018 Hypercapnia 12/22/2017 02/24/2018 Overview (12/22/2017): Associated with hypoventilation and obesity, with metabolic compensation. Assessment & Plan (12/22/2017 6:47 PM PRINTING MACHINIST): See hypercapnia and hypoventilation problems. Wenckebach second degree AV block 12/21/2017 02/24/2018 Assessment & Plan (12/24/2017 6:59 AM PRINTING MACHINIST): Pt with wenckebach type 1 AV block during night, most likely due to obstructive sleep apnea. Pt also has bradycardia during day--asymptomatic Recommend: Treat JENNIFER Coreg decreased to 3.125 mg bid No indication for pacemaker. Assessment & Plan (12/22/2017 6:11 AM PRINTING MACHINIST): Pt with wenckebach type 1 AV block during night, most likely due to obstructive sleep apnea. Pt also has bradycardia during day--asymptomatic Recommend: Sleep study last pm. Coreg decreased to 3.125 mg bid Assessment & Plan (12/21/2017 6:54 AM PRINTING MACHINIST): Pt with wenckebach type 1 AV block during night, most likely due to obstructive sleep apnea. Recommend: Sleep study. Decrease coreg to 6.25 mg bid CRI (chronic renal insufficiency) 12/21/2017 02/23/2018 Assessment & Plan (02/21/2018 2:19 PM PRINTING MACHINIST): Monitor renal function Adjust diuresis accordingly Hold Lisinopril for OR Assessment & Plan (12/23/2017 12:49 PM PRINTING MACHINIST): Stage 3 -creatinine at baseline -cont to monitor Assessment & Plan (12/23/2017 9:02 AM PRINTING MACHINIST): Creatinine stable. Will hold IV lasix and f/u bmp s/p cath. Likely change to po diuretics Assessment & Plan (12/22/2017 9:32 AM PRINTING MACHINIST): Stage 3 -creatinine at baseline -cont to monitor Assessment & Plan (12/21/2017 10:08 AM PRINTING MACHINIST): Stage 3 -creatinine at baseline Acute on chronic diastolic ( congestive) heart failure 12/20/2017 02/24/2018 Assessment & Plan (02/23/2018 11:33 AM PRINTING MACHINIST): Intra-op TINO >Diastolic function: grade I dysfunction. Normal biventricular systolic function on Dobutamine and pre-procedure. CI >2.5, SVO2 66% - Wean Dobutamine to 1mcg/kg/min and then discontinue in 4 hours - Negative FB goal w/ Lasix dosing Assessment & Plan (02/21/2018 2:17 PM PRINTING MACHINIST): Continue current medical tx including diuresis Assessment & Plan (12/24/2017 6:57 AM PRINTING MACHINIST): Pt with likely HFpEf due to , HTN. And exacerbated also by JENNIFER and hypoventilation Improved with diuresis. Plan for d/c today. Lasix 40 mg bid po Daily weights. F/u bp at home Bmp on Wednesday with results to my office. F/u in valve clinic with Dr. Gates. Assessment & Plan (12/23/2017 12:15 PM PRINTING MACHINIST): Acute on chronic diastolic HF, EF 70-75%, [...] telemetry Assessment & Plan (12/23/2017 9:01 AM PRINTING MACHINIST): Pt with likely HFpEf due to , [...] cath Assessment & Plan (12/22/2017 7:03 PM PRINTING MACHINIST): Contributes to dyspnea, pleural effusions, and edema. Rx per cardiology. Assessment & Plan (12/22/2017 9:36 AM PRINTING MACHINIST): Acute on chronic diastolic HF, EF 70-75%, [...] telemetry Assessment & Plan (12/22/2017 6:09 AM PRINTING MACHINIST): Pt with likely HFpEf due to , [...] pressure. Assessment & Plan (12/21/2017 12:33 PM PRINTING MACHINIST): Acute on chronic diastolic HT, EF 63%, [...] weights Assessment & Plan (12/21/2017 6:53 AM PRINTING MACHINIST): Pt with likely HFpEf due to , [...] on file Legal Sex Male 6:30 AM PRINTING MACHINIST Gender Identity Not on file Sexual Orientation Not on file Last Filed Vital Signs Vital Sign Reading Time Taken Comments Blood Pressure 181/97 04/11/2024 2:05 PM PRINTING MACHINIST Pulse 81 04/11/2024 2:05 PM PRINTING MACHINIST Temperature 36.7 C (98 F) 10/01/2020 10:30 AM CDT Respiratory Rate 20 03/02/2018 8:19 AM PRINTING MACHINIST Oxygen Saturation 96% 04/11/2024 2:05 PM PRINTING MACHINIST Inhaled Oxygen Concentration - - Weight 123.6 kg (272 lb 6.4 oz) 04/11/2024 2:05 PM PRINTING MACHINIST Height 175.3 cm (5' 9) 04/11/2024 2:05 PM PRINTING MACHINIST Body Mass Index 40.23 04/11/2024 2:05 PM PRINTING MACHINIST Plan of Treatment Health Maintenance Due Date [...] of 2 - PPSV23, PCV20, or PCV21) 03/05/2019 02/05/2020, 01/08/2019, 12/31/2018 eGFR 11/21/2021 11/21/2020, 10/09, 10/10/2020, Additional history exists Influenza Vaccine (#1) 2024 Lipid Panel 04/21/2025 04/21/2024, 10/09, 02/21/2018 Prostate Cancer Screening-PSA Discontinued 10/19/2018 Medical Devices Implanted Type Area Institutional Research Director Device Identifier Shelf Expiration Date Model / Serial / Lot [employer] [id number] Sternalock Aroldo 6 Hole Sternum Hexagon Plate Bone Primary Closure - Sna - [id number] Implanted:Qty: 1 on 02/22/2018 by Anibal Wade MD at [facility] Plate Heart [employer] [id number] / NA / NA Description:[employer] Sternaloc k Aroldo Plating System 6 Hole Hex Plate [employer] [id number] Sternalock Aroldo 2.4mm 20mm Self Drill Lock Sternum Cancellous - Sna - [id number] Implanted:Qty: 6 on 02/22/2018 by Anibal Wade MD at [facility] Screw Heart [employer] [id number] / NA / Description:2.4mm cancellous sd locking screw 20mm [employer] Sternalock Aroldo Sternal Plating System [employer] [id number] Inspiris Resilia Leaflet Sewing Ring 25mm Valve Aortic Bovine - [id number] - [id number] Implanted:Qty: 1 on 02/22/2018 by Anibal Wade MD at [facility] Heart [employer] 09/24/2019 [id number] / [id number] / Procedures Procedure Name Priority Date/Time Associated Diagnosis Comments LIPID PANEL Routine 04/21/2024 10:22 AM CDT Pure hypercholesterolemia BASIC METABOLIC PANEL Routine 11/21/2020 1:59 PM CDT Essential hypertension PSA SCREEN Routine 10/19/2018 10:49 AM CDT HEMOGLOBIN A1C Routine 02/21/2018 1:57 PM PRINTING MACHINIST from Last 3 Months or Most Recently Relevant to Health Maintenance Results * Lipid panel (04/21/2024 10:22 AM CDT) [facility] Cholesterol 143 <200 mg/dL [facility] HDL 50 > OR = 40 mg/dL [facility] Triglycerides 83 <150 mg/dL [facility] LDL 76 mg/dL (calc) [facility] Comment: Reference range: <100 Desirable range <100 mg/dL for primary prevention; <70 mg/dL for patients with CHD or diabetic patients with > or = 2 CHD risk factors. LDL-C is now calculated using the Evgeny-Radha calculation, which is a validated novel method providing better accuracy than the Friedewald equation in the estimation of LDL-C. Evgeny SS et al. SURI. 2013;310(19): 9087-9633 (http://education.[employer]/faq/RUL194) Chol/HDL ratio 2.9 <5.0 (calc) [facility] Non-HDL, (LDL+VLDL) 93 <130 mg/dL (calc) [facility] Comment: For patients with diabetes plus 1 major ASCVD risk factor, treating to a non-HDL-C goal of <100 mg/dL (LDL-C of <70 mg/dL) is considered a therapeutic option. Blood 04/21/2024 10:2 2 AM CDT 04/21/2024 10:22 AM CDT Narrative [facility] - 04/22/2024 3:45 AM CDT FASTING:YES FASTING: YES us William Kramer MD LAB BLOOD ORDERABLES F inal Result [facility] [address] [place] [address] * (ABNORMAL) Basic metabolic panel (11/21/2020 1:59 [...] approximately 13% higher for people identified as -Dutch. eGFR NON-AFR. ALGERIAN 50(L) > OR = 60 mL/min/1. 73m2 [...] LAB BLOOD ORDERABLES F inal Result [facility] [address] [address] * PSA screen (10/19/2018 10:49 AM CDT) PSA 1.8 < OR = 4.0 ng/mL [facility] [place] Comment: The total PSA value from this assay system is standardized against the WHO standard. The test result will be approximately 20% lower when compared to the equimolar-standardized total PSA (Daniel T[place]). Comparison of serial PSA results should be [...] Agency Comment Performing Organization Information: Site ID: [place] Name: [facility] Address: [address] [place] [address] Director: Maxx Henson D.O., MPH William Kramer MD LAB BLOOD ORDERABLES F inal Result Performing Organization Address City/[facility]/ZIP Co de Phone Number [facility] [place], [place] * (ABNORMAL) Hemoglobin A1c (02/21/2018 1:57 PM PRINTING MACHINIST) Hgb A1C 10.1(H) 4.0 - 5.6 % [facility] Estimated Average Glucose 243 mg/dL [facility] Comment: The ADA recommends reporting an estimated Average Glucose (eAG) with all Hemoglobin A1c results using the equation derived from a study of 507 normal and diabetic adults. Minority populations were underrepresented and children were not included. (Diabetes Care 31:6858-2255, 2008). The eAG is not equivalent to a fasting glucose. Blood specimen (specimen) 02/21/2018 1:57 PM PRINTING MACHINIST 02/21/2018 2:05 PM PRINTING MACHINIST Narrative YUMI[facility] ARAGON - 02/21/2018 2:43 PM PRINTING MACHINIST us Flako Dixon NP LAB BLOOD ORDERABLES Final Result [facility] [place] [address] from Last 3 Months or Most Recently Relevant to Health Maintenance Insurance [facility] MEDICARE ADVANTAGE [facility] MED[facility] Address[place] [id number] [place] [address] [facility] [address] [facility] MEDICARE ADVANTAGE [facility] Address: [place] [id number] [facility] MED[facility] Address: [address] [address] [place] [address] [address] [facility] MDCR HMO REF [employer] MEDICARE ADVANTAGE Advance Directives For more information, please contact: [phone] * Full Code (Latest Code Status on File) Date Activated Date Inactivated Comments 02/22/2018 3:22 PM 03/02/2018 3:54 PM * Full Code Date Activated Date Inactivated Comments 02/22/2018 3:11 PM 02/22/2018 3:22 PM * Full Code Date Activated Date Inactivated Comments 02/21/2018 1:39 PM 02/22/2018 3:11 PM * Full Code Date Activated Date Inactivated Comments 12/20/2017 5:12 PM 12/24/2017 2:07 PM Care Teams Bilingual Teacher Assistant Relationship Specialty Start Date End Date Josefa Almaraz MD PCP - General 12/20/17 William Kramer MD Referring Physician Cardiology 02/02/18 Angelica Gardner MD Referring Physician Endocrinology 03/23/19 Jocelyn Charles MD [address] [address] Referring Physician Internal Medicine 04/18/24
[2024-12-28 04:40] LABS: Glucose Urine UA 4+ mg/dL (Negative)
[2024-12-28 04:41] LABS: Add Urine Microscopic? YES
[2024-12-28 04:42] LABS: Appearance Urine Sl Cloudy (Clear); Specific Grav Ur 1.015 (1.001-1.035)
[2024-12-28 04:43] LABS: Leukocyte Esterase Ur Negative LEU/UL (Negative); Nitrate Urine Negative (Negative)
[2024-12-28 05:01] VITALS: BP 144/87; PULSE 69; RESP 18; O2SAT 96
== END 2024-12-28 05:02 | disposition home or self-care (01) ==
PROVIDERS: Emergency Provider Student in an Organized Health Care Education/Training Program; PCP Family Medicine
DX: R33.9 Retention of urine, unspecified (principal); R31.0 Gross hematuria; E11.22 Type 2 diabetes mellitus with diabetic chronic kidney disease; I12.9 Hypertensive chronic kidney disease with stage 1 through stage 4 chronic kidney disease, or unspecified chronic kidney disease; E78.5 Hyperlipidemia, unspecified; I25.10 Atherosclerotic heart disease of native coronary artery without angina pectoris; Z79.4 Long term (current) use of insulin; N18.32 Chronic kidney disease, stage 3b; E55.9 Vitamin D deficiency, unspecified; G47.33 Obstructive sleep apnea (adult) (pediatric)
CPT/HCPCS: 51702; 81001; 99283